=== PATIENT | male | born 1940 | race Caucasian/White ===

== ENCOUNTER 2017-04-25 12:01 | Emergency (ER) | payer MEDICARE ==
[2017-04-25] MEDS ORDERED: NS 0.9% 1000 ML* 1,000 ML IV ONE (12:51)
[2017-04-25 13:26] LABS: Add Diff/Slide Review? Slide Review Added; Comments Flag Yes; Hematocrit 28 % (42-52); Hemoglobin 9.4 g/dl (14.0-18.0); Mean Corpuscular HGB Conc 34 g/dl (31-36); Mean Corpuscular Hemoglobin 31 pg (27-31); Mean Corpuscular Volume 91 fL (80-94); Mean Platelet Volume 8 um3 (7.4-10.4); Red Cell Distribution Width 18 % (10.5-15); White Blood Count 3.1 10^3/ul (3.5-10.8)
--- NOTE | 2017-04-25 13:31 | RAD ---
INDICATION: Short of breath. Lung carcinoma. Chest x-ray March 09, 2016 COMPARISON: Chest x-ray March 09, 2016 TECHNIQUE: PA and lateral dual-energy views were obtained. FINDINGS: Bones/Soft Tissues: There are no acute bony findings. There is prior cervical fusion. Cardiomediastinal: The heart is normal in size. The mediastinal contours are unchanged Lungs: There is hyperinflation with chronic interstitial change.. Pleura: There are no pleural effusions. Other: None IMPRESSION: HYPERINFLATION WITH CHRONIC INTERSTITIAL LUNG DISEASE.
[2017-04-25 13:39] LABS: Albumin 3.2 g/dL (3.2-5.2); BUN/Creatinine Ratio 13.7 (8-20); Calcium 8.6 mg/dL (8.6-10.3); EGFR African American 98.9 (>60); EGFR Non-African American 76.9 (>60); Globulin 3.1 g/dL (2-4); Magnesium 1.9 mg/dL (1.9-2.7); Potassium 3.7 mmol/L (3.5-5.0); Total Bilirubin 1.1 mg/dL (0.2-1.0); Total Protein 6.3 g/dL (6.4-8.9)
[2017-04-25 13:41] LABS: Troponin I 0.01 ng/mL (<0.04)
[2017-04-25 14:07] LABS: TSH (Thyroid Stimulating Horm) 1.67 mcIU/mL (0.34-5.60)
[2017-04-25 15:35] LABS: Urine Bilirubin Negative (Negative); Urine Glucose Negative (Negative); Urine Nitrite Negative (Negative)
[2017-04-25 16:58] VITALS: BP 119/98
--- NOTE | 2017-04-25 17:02 | RAD ---
INDICATION: Lung carcinoma COMPARISON: PET scan February 22, 2017; CT abdomen pelvis November 17, 2015 TECHNIQUE: Noncontrast axial source images was performed from the thoracolumbar junction to the sacrum. Coronal and and sagittal reformatted images were generated. FINDINGS: Vertebrae: There is no fracture or acute focal bony lesion. There is spondylitic change of the lumbar spine which appears similar to earlier CT imaging and includes mild multilevel facet arthropathy, vertebral spurring, and moderate disc space narrowing at L5-S1. There is moderate to severe canal stenosis at L3-L4 previous by combination of bulging disc, facet, and ligamentous overgrowth. There is mild central canal stenosis at L4-L5 related to a similar process. There is a left laminectomy at L5 Alignment: The lumbar vertebrae are normally aligned. Central Canal: There are no significant CT abnormalities of the central canal or foramina. MR imaging is a more sensitive method to evaluate the canal and foramina. Intervertebral disc spaces: The remaining disc spaces are maintained. Soft tissues: There are aortic intimal calcifications with aneurysmal dilatation of infrarenal abdominal aorta. This is only imaged in part of this examination and represents a previously documented finding. There are also left-sided parapelvic cysts. There is trace free fluid in the dependent portion of the pelvis representing a nonspecific finding. Other: None IMPRESSION: NO ACUTE CT FINDINGS. 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 MODERATE TO SEVERE CANAL STENOSIS L3-L4. MILD CANAL STENOSIS L4-L5. LEFT LAMINECTOMY L5.
--- NOTE | 2017-04-25 21:47 | ED ---
Radha Manuel Alfonso, scribed for Sav Caban MD on 04/25/17 at 1232 . Syncope/Near Syncope - HPI Summary HPI Summary: This patient is a 77 year old M presenting to [facility] with a chief complaint of syncope since earlier today. Pt states that when walking down an alley his legs went right from under him. He fell to the floor and got up within 5 minutes. Currently, his legs feel numb and fuzzy. The patient rates his pain 5/10 in severity. Symptoms aggravated nothing and alleviated by spontaneous resolution. Patient reports~CP, dyspnea on exertion, hematemesis (acute on chronic), bilateral LE weakness, lower back pain (chronic), constipation for the past 5 days (5 days for which he is taking medication), throat pain (aggravated by food and drink), dehydration, and blurred vision (intermittent 2-5 minute episodes on exertion for the past few days). Patient denies~feeling bloated and urinary symptoms. - History Of Current Complaint Chief Complaint: EDSyncope Time Seen by Provider: 04/25/17 12:10 Hx Obtained From: Patient Onset/Duration: Sudden Onset, Lasting Minutes - about 5 minutes Timing: Minutes - 5 minutes Activity At Onset: Exertion - Walking Aggravating Factor(s): Nothing Alleviating Factor(s): Spontaneous Resolution Associated Signs And Symptoms: Other - Patient reports CP, dyspnea on exertion, hematemesis (acute on chronic), bilateral LE weakness, lower back pain (chronic) , constipation for the past 5 days (5 days for which he is taking medication), throat pain (aggravated by food and drink), dehydration, and blurred vision ( intermittent 2-5 minute episodes on exertion for the past few days). Patient denies feeling bloated and urinary symptoms. - Allergies/Home Medications Allergies/Adverse Reactions: Allergies Allergy/AdvReac Type Severity Reaction Status Date / Time No Known Allergies Allergy Verified 02/19/17 12:51 PMH/Surg Hx/FS Hx/Imm Hx Endocrine/Hematology History: Reports: Hx Anemia - chemo-induced Denies: Hx Diabetes, Hx Systemic Lupus Erythematosus Cardiovascular History: Reports: Hx Angina, Hx Coronary Artery Disease, Hx Hypercholesterolemia, Hx Hypertension - ON MEDS, Hx Myocardial Infarction Denies: Hx Congestive Heart Failure, Hx Valvular Heart Disease Comment Only: Other Cardiovascular Problems/Disorders - - Respiratory History: Reports: Hx Asthma, Hx Chronic Obstructive Pulmonary Disease (COPD), Hx Lung Cancer - -chemo, last CT scan was clear, Other Respiratory Problems/Disorders - LUNG CA GI History: Reports: Hx Gastroesophageal Reflux Disease Comment Only: Other GI Disorders - HX PROSTATE CA 1998, LUNG CA 2013 WITH RADIATIONS [place] History: Reports: Other Problems/Disorders - hx prostate ca Denies: Hx Dialysis, Hx Renal Disease - DYSURIA, HEMATURIA, PROSTATE CA Musculoskeletal History: Reports: Hx Back Problems - disc removal, Other Musculoskeletal History - R knee surgery Denies: Hx Rheumatoid Arthritis Sensory History: Reports: Hx Contacts or Glasses Opthamlomology History: Reports: Hx Contacts or Glasses - Cancer History Cancer Type, Location and Year: lung ca dx 2010 radiation and chemo last dose 2010, in remission, PROSTATE CA Hx Chemotherapy: No - Surgical History Surgery Procedure, Year, and Place: back 1979,prostate removed r/t ca 1994, cardiac stent 1999,knee right,oliver, appendectomy, bilat cataract, Infectious Disease History: Denies: Traveled Outside the [place] in Last 30 Days - Family History Known Family History: Positive: Cardiac Disease - Social History Alcohol Use: None Substance Use Type: Reports: None Smoking Status (MU): Former Smoker Review of Systems Positive: Other - POSTIVE: Dehydration Positive: Blurred Vision Positive: Other - POSITIVE: throat pain per food and drink Positive: Chest Pain Positive: Shortness Of Breath - dyspnea on exertion, Cough - Hematemesis (acute on chronic) Positive: Other - POSITIVE: constipation; NEGATIVE: feeling bloated Positive: other - NEGATIVE: urinary symptoms Positive: Other - Lower back pain (chronic) Positive: Weakness - Bilateral LE weakness All Other Systems Reviewed And Are Negative: Yes Physical Exam Triage Information Reviewed: Yes Vital Signs On Initial Exam: Initial Vitals Temp Pulse Resp BP Pulse Ox 98.2 F 88 24 124/54 95 04/25/17 12:02 04/25/17 12:02 04/25/17 12:02 04/25/17 12:02 04/25/17 12:02 Vital Signs Reviewed: Yes Appearance: Positive: Well-Appearing, No Pain Distress Skin: Positive: Warm, Skin Color Reflects Adequate Perfusion, Dry Head/Face: Positive: Normal Head/Face Inspection Eyes: Positive: Normal ENT: Positive: Other - Dry oral mucosa Neck: Positive: Supple, Nontender Respiratory/Lung Sounds: Positive: Clear to Auscultation, Breath Sounds Present Cardiovascular: Positive: Other - Distant heart sounds Abdomen Description: Positive: Soft, Other: - LLQ Tenderness Musculoskeletal: Positive: Normal Neurological: Positive: Normal, Sensory/Motor Intact, Alert, Oriented to Person Place, Time, CN Intact II-III Psychiatric: Positive: Affect/Mood Appropriate Diagnostics - Vital Signs Vital Signs Temp Pulse Resp BP Pulse Ox 04/25/17 12:02 98.2 F 88 24 124/54 95 - Laboratory Lab Results: Lab Results 04/25/17 04/25/17 04/25/17 Range/Units 12:35 12:35 12:35 WBC 3.1 L (3.5-10.8) 10^3/ul RBC 3.10 L (4.0-5.4) 10^6/ul Hgb 9.4 L (14.0-18.0) g/dl Hct 28 L (42-52) % MCV 91 (80-94) fL MCH 31 (27-31) pg MCHC 34 (31-36) g/dl RDW 18 H (10.5-15) % Plt Count 193 (150-450) 10^3/ul MPV 8 (7.4-10.4) um3 Neut % (Auto) 76.8 (38-83) % Lymph % (Auto) 13.5 L (25-47) % Shannon % (Auto) 8.8 (1-9) % Eos % (Auto) 0.5 (0-6) % Baso % (Auto) 0.4 (0-2) % Absolute Neuts (auto) 2.4 (1.5-7.7) 10^3/ul Absolute Lymphs (auto) 0.4 L (1.0-4.8) 10^3/ul Absolute Monos (auto) 0.3 (0-0.8) 10^3/ul Absolute Eos (auto) 0 (0-0.6) 10^3/ul Absolute Basos (auto) 0 (0-0.2) 10^3/ul Absolute Nucleated RBC 0.01 10^3/ul Nucleated RBC % 0.4 Sodium 135 (133-145) mmol/L Potassium 3.7 (3.5-5.0) mmol/L Chloride 102 (101-111) mmol/L Carbon Dioxide 25 (22-32) mmol/L Anion Gap 8 (2-11) mmol/L BUN 13 (6-24) mg/dL Creatinine 0.95 (0.67-1.17) mg/dL Est GFR ( Amer) 98.9 (>60) Est GFR (Non-Af Amer) 76.9 (>60) BUN/Creatinine Ratio 13.7 (8-20) Glucose 115 H (70-100) mg/dL Lactic Acid 1.5 (0.5-2.0) mmol/L Calcium 8.6 (8.6-10.3) mg/dL Magnesium 1.9 (1.9-2.7) mg/dL Total Bilirubin 1.10 H (0.2-1.0) mg/dL AST 14 (13-39) U/L ALT 14 (7-52) U/L Alkaline Phosphatase 50 (34-104) U/L Total Creatine Kinase 30 (10-223) U/L Troponin I 0.01 (<0.04) ng/mL Total Protein 6.3 L (6.4-8.9) g/dL Albumin 3.2 (3.2-5.2) g/dL Globulin 3.1 (2-4) g/dL Albumin/Globulin Ratio 1.0 (1-3) TSH 1.67 (0.34-5.60) mcIU/mL Urine Color Urine Appearance Urine pH (5-9) Ur Specific [place] (1.010-1.030) Urine Protein (Negative) Urine Ketones (Negative) Urine Blood (Negative) Urine Nitrate (Negative) Urine Bilirubin (Negative) Urine Urobilinogen (Negative) Ur Leukocyte Esterase (Negative) Urine Glucose (Negative) 04/25/17 Range/Units 15:23 WBC (3.5-10.8) 10^3/ul RBC (4.0-5.4) 10^6/ul Hgb (14.0-18.0) g/dl Hct (42-52) % MCV (80-94) fL MCH (27-31) pg MCHC (31-36) g/dl RDW (10.5-15) % Plt Count (150-450) 10^3/ul MPV (7.4-10.4) um3 Neut % (Auto) (38-83) % Lymph % (Auto) (25-47) % Shannon % (Auto) (1-9) % Eos % (Auto) (0-6) % Baso % (Auto) (0-2) % Absolute Neuts (auto) (1.5-7.7) 10^3/ul Absolute Lymphs (auto) (1.0-4.8) 10^3/ul Absolute Monos (auto) (0-0.8) 10^3/ul Absolute Eos (auto) (0-0.6) 10^3/ul Absolute Basos (auto) (0-0.2) 10^3/ul Absolute Nucleated RBC 10^3/ul Nucleated RBC % Sodium (133-145) mmol/L Potassium (3.5-5.0) mmol/L Chloride (101-111) mmol/L Carbon Dioxide (22-32) mmol/L Anion Gap (2-11) mmol/L BUN (6-24) mg/dL Creatinine (0.67-1.17) mg/dL Est GFR ( Amer) (>60) Est GFR (Non-Af Amer) (>60) BUN/Creatinine Ratio (8-20) Glucose (70-100) mg/dL Lactic Acid (0.5-2.0) mmol/L Calcium (8.6-10.3) mg/dL Magnesium (1.9-2.7) mg/dL Total Bilirubin (0.2-1.0) mg/dL AST (13-39) U/L ALT (7-52) U/L Alkaline Phosphatase (34-104) U/L Total Creatine Kinase (10-223) U/L Troponin I (<0.04) ng/mL Total Protein (6.4-8.9) g/dL Albumin (3.2-5.2) g/dL Globulin (2-4) g/dL Albumin/Globulin Ratio (1-3) TSH (0.34-5.60) mcIU/mL Urine Color Yellow Urine Appearance Clear Urine pH 6.0 (5-9) Ur Specific [place] 1.014 (1.010-1.030) Urine Protein Negative (Negative) Urine Ketones 1+ H (Negative) Urine Blood Negative (Negative) Urine Nitrate Negative (Negative) Urine Bilirubin Negative (Negative) Urine Urobilinogen Negative (Negative) Ur Leukocyte Esterase Negative (Negative) Urine Glucose Negative (Negative) Result Diagrams: 08/20/17 12:35 04/25/17 12:35 Lab Statement: Any lab studies that have been ordered have been reviewed, and results considered in the medical decision making process. - Radiology CXR Radiology Interpretation Completed By: Radiologist - HYPERINFLATION WITH CHRONIC INTERSTITIAL LUNG DISEASE. - CT L-Spine CT Interpretation Completed By: Radiologist - NO ACUTE CT FINDINGS. 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 MODERATE TO SEVERE CANAL STENOSIS L3-L4. MILD CANAL STENOSIS L4-L5. LEFT LAMINECTOMY L5. - EKG 1323 Cardiac Rate: Bradycardia - BPM 56 EKG Rhythm: Sinus Bradycardia EKG Interpretation: NAD Course/Dx Course Of Treatment: Mr. Alvares had an episode while walking of having his bilateral legs give out. He initially had some back pain after he fell but it went away. Hs right leg has given out before but never the left. He has been occasionally lightheaded which he attributes to being unable to eat secondary to severe chest pain after swallowing. His W/U was negative here and he was able to ambulate. - Diagnoses Provider Diagnoses: Syncope and collapse - Physician Notifications Discussed Care of Patient With: Zeyad Hennessy Time Discussed With Above Provider: 16:31 Instructed by Provider To: Other - Consult Dr. Ulrich (Oncologist) about the pt. Discharge - Discharge Plan Condition: Stable Disposition: HOME Patient Education Materials: Dehydration (ED) Referrals: Reynaldo Mejias MD [Primary Care Provider] - Yogi Hale MD [Medical Doctor] - 3 Days The documentation as recorded by the Radha oakes Alfonso accurately reflects the service I personally performed and the decisions made by , Sav Caban MD.
== END 2017-04-25 18:39 | disposition home or self-care (01) ==
LOC: ED 12:01
DX: R55 Syncope and collapse (principal); M54.5 Low back pain; E86.0 Dehydration; Z87.891 Personal history of nicotine dependence
CPT/HCPCS: 36415; 71020; 72131; 80053; 81003; 82550; 83605; 83735; 84443; 84484; 85025; 93005; 99283

== ENCOUNTER 2017-12-02 18:14 | Inpatient (IN) | payer MEDICARE ==
[2017-12-02] MEDS ORDERED: Aspirin TAB* 325 MG PO ONE (18:55)
[2017-12-02] MEDS ORDERED: Nitroglycerin 2% OINT* 1 GM PAK TOPICAL ONE (18:55)
[2017-12-02 18:56] LABS: ABS Basophils 0 10^3/ul (0-0.2); ABS Eosinophils 0.1 10^3/ul (0-0.6); ABS Monocytes 0.7 10^3/ul (0-0.8); ABS Neutrophils 4.9 10^3/ul (1.5-7.7); ABS Nucleated RBC 0 10^3/ul; Hematocrit 40 % (42-52); Hemoglobin 13.8 g/dl (14.0-18.0); Lymphocyte % 14.6 % (25-47); Mean Corpuscular HGB Conc 34 g/dl (31-36); Mean Corpuscular Hemoglobin 30 pg (27-31); Mean Corpuscular Volume 89 fL (80-94); Mean Platelet Volume 7.2 um3 (7.4-10.4); Nucleated Red Blood Cells % 0; Platelet Count 177 10^3/ul (150-450); Red Blood Count 4.55 10^6/ul (4.0-5.4); Red Cell Distribution Width 15 % (10.5-15); White Blood Count 6.7 10^3/ul (3.5-10.8)
[2017-12-02] MEDS ORDERED: Morphine INJ* 4 MG/ML 1 ML SYRINGE (NEW SYRINGE VERSION) IV ONE (18:56)
--- NOTE | 2017-12-02 19:06 | RAD ---
INDICATION: Chest pain COMPARISON: Chest x-ray dated April 25, 2017 TECHNIQUE: Single AP portable view of the chest was obtained. FINDINGS: Image quality is compromised due to the relative inferiority of a portable chest x-ray. The heart and mediastinum exhibit normal size and contour. Similar to the prior chest x-ray there is patchy density at the dependent lateral right lung. The lungs are otherwise grossly clear. There is no evidence of a large pleural effusion. Visualized bones are normal for the patient's age. IMPRESSION: Stable patchy density at the lateral right lung base, unchanged since the 2016 chest x-ray, could represent atelectasis, scarring or early interstitial lung disease. There are no acute findings.
[2017-12-02 19:14] LABS: EGFR Non-African American 70.8 (>60)
[2017-12-02] MEDS ORDERED: CMCS: Melatonin (NF) 3 MG TAB PO PRN (19:41)
[2017-12-02] MEDS ORDERED: hydrALAZINE IV* 20 MG/ML VIAL IV PRN (19:41)
[2017-12-02] MEDS ORDERED: Acetaminophen TAB* 325 MG PO PRN (19:41)
[2017-12-02] MEDS ORDERED: Albuterol 2.5 MG/3 ML NEB.SOL* (0.083%) INH PRN (19:41)
[2017-12-02] MEDS ORDERED: Ondansetron INJ* 2 MG/ML VIAL IV PRN (19:41)
[2017-12-02] MEDS ORDERED: Metoprolol Tartrate TAB* 25 MG PO ONE (19:42)
--- NOTE | 2017-12-02 20:45 | ED ---
Laurie Manuel Julia, scribed for Julia Starr MD on 12/02/17 at 1843 . HPI Chest Pain - HPI Summary HPI Summary: This patient is a 77 year old M presenting to [facility] accompanied by his son with a chief complaint of chest pain all week that worsened today with SOB when shoveling the driveway that resolved when sitting down after ten minutes. Chest pain, nausea and diaphoresis returned suddenly when he walked back outside. The patient rates the pain 8/10 in severity. Patient reports headache at baseline, sinus infection for the past few weeks and intermittent neck pain at baseline. Patient denies urinary or bowel symptoms, new abdominal pain, bruising, rashes , ear ache, sore throat, fever, and anxiety or depression. Pt took a baby ASA and one Nitro today. Pt had his last stent placed in 1999. - History of Current Complaint Hx Obtained From: Patient Onset/Duration: Started Hours Ago Timing: Lasting Minutes Pain Intensity: 8 Pain Scale Used: 0-10 Numeric Aggravating Factor(s): Exertion Alleviating Factor(s): Rest Associated Signs and Symptoms: Positive: Chest Pain, Headaches, Shortness of Breath, Diaphoresis, Nausea, Sinus Discomfrot. Negative: Fever - Additional Pertinent History Primary Care Physician: [id number] - Allergy/Home Medications Allergies/Adverse Reactions: Allergies Allergy/AdvReac Type Severity Reaction Status Date / Time No Known Allergies Allergy Verified 11/19/17 12:36 Home Medications: Home Medications Dicyclomine CAP* [Bentyl CAP*] 20 mg PO BID 12/02/17 [History Confirmed 12/02/17 ] hydrOXYzine HCL TAB* [Atarax 10 MG TAB*] 10 mg PO DAILY 12/02/17 [History Confirmed 12/02/17] PMH/Surg Hx/FS Hx/Imm Hx Endocrine/Hematology History: Reports: Hx Anemia - chemo-induced Denies: Hx Diabetes, Hx Systemic Lupus Erythematosus Cardiovascular History: Reports: Hx Angina, Hx Coronary Artery Disease, Hx Hypercholesterolemia, Hx Hypertension - ON MEDS, Hx Myocardial Infarction Denies: Hx Congestive Heart Failure, Hx Pacemaker/ICD, Hx Valvular Heart Disease Comment Only: Other Cardiovascular Problems/Disorders - - Respiratory History: Reports: Hx Asthma, Hx Chronic Obstructive Pulmonary Disease (COPD), Hx Lung Cancer - -chemo, last CT scan was clear, Other Respiratory Problems/Disorders - LUNG CA GI History: Reports: Hx Gastroesophageal Reflux Disease Comment Only: Other GI Disorders - HX PROSTATE CA 1998, LUNG CA 2013 WITH RADIATIONS [place] History: Reports: Other Problems/Disorders - hx prostate ca Denies: Hx Dialysis, Hx Renal Disease Musculoskeletal History: Reports: Hx Back Problems - disc removal, Other Musculoskeletal History - R knee surgery Denies: Hx Rheumatoid Arthritis Sensory History: Reports: Hx Contacts or Glasses Denies: Hx Hearing Aid Opthamlomology History: Reports: Hx Contacts or Glasses Psychiatric History: Denies: Hx Panic Disorder - Cancer History Cancer Type, Location and Year: lung ca dx 2010 radiation and chemo last dose 2010, second round in 2017 ending in april, prostate CA Hx Chemotherapy: No - Surgical History Surgery Procedure, Year, and Place: back 1979,prostate removed r/t ca 1994, cardiac stent 1999,knee right,oliver, appendectomy, bilat cataract, Infectious Disease History: No Infectious Disease History: Denies: Traveled Outside the [place] in Last 30 Days - Family History Known Family History: Positive: Cardiac Disease - Social History Alcohol Use: None Substance Use Type: Reports: None Smoking Status (MU): Former Smoker Review of Systems Negative: Fever Negative: Blurred Vision Negative: Sore Throat, Ear Ache Positive: Chest Pain Positive: Shortness Of Breath Gastrointestinal: Negative - bowel symptoms Positive: Nausea. Negative: Abdominal Pain Positive: no symptoms reported Positive: Myalgia - neck, at baseline Negative: Rash Positive: Headache - at baseline Negative: Anxious, Depressed All Other Systems Reviewed And Are Negative: No Physical Exam - Summary Physical Exam Summary: Appearance: Alert, conversive, nontoxic appearing Skin: Warm, dry, no mottling, no rashes, no contusions HEENT: EOMI, PERRL, moist mucous membranes Neck: No masses on the neck, supple Respiratory: Clear to auscultation, breath sounds present, no rales, no rhonchi , no wheezes Cardiovascular: RRR, pulses are symmetrical in both lower and upper extremities Abdomen: Soft, non-tender Bowel Sounds: Present Musculoskeletal: No CVA tenderness, no obvious deformity, moving all extremities in a grossly normal manner Neurological: A&Ox3, CN II-XII Intact, moving all extremities symmetrically Psychiatric: Normal affect and mood Triage Information Reviewed: Yes Vital Signs On Initial Exam: Initial Vitals Temp Pulse Resp BP Pulse Ox 99.3 F 75 16 144/66 96 12/02/17 18:31 18 18:31 18 18:31 12/02/17 18:31 12/02/17 18:31 Vital Signs Reviewed: Yes Diagnostics - Vital Signs Vital Signs Temp Pulse Resp BP Pulse Ox 12/02/17 18:31 99.3 F 75 16 144/66 96 - Laboratory Lab Results: Lab Results 12/02/17 12/02/17 12/02/17 Range/Units 18:45 18:45 18:45 WBC 6.7 (3.5-10.8) 10^3/ul RBC 4.55 (4.0-5.4) 10^6/ul Hgb 13.8 L (14.0-18.0) g/dl Hct 40 L (42-52) % MCV 89 (80-94) fL MCH 30 (27-31) pg MCHC 34 (31-36) g/dl RDW 15 (10.5-15) % Plt Count 177 (150-450) 10^3/ul MPV 7.2 L (7.4-10.4) um3 Neut % (Auto) 73.4 (38-83) % Lymph % (Auto) 14.6 L (25-47) % [place] % (Auto) 10.5 H (0-7) % Eos % (Auto) 1.0 (0-6) % Baso % (Auto) 0.5 (0-2) % Absolute Neuts (auto) 4.9 (1.5-7.7) 10^3/ul Absolute Lymphs (auto) 1.0 (1.0-4.8) 10^3/ul Absolute Monos (auto) 0.7 (0-0.8) 10^3/ul Absolute Eos (auto) 0.1 (0-0.6) 10^3/ul Absolute Basos (auto) 0 (0-0.2) 10^3/ul Absolute Nucleated RBC 0 10^3/ul Nucleated RBC % 0 Sodium 141 (139-145) mmol/L Potassium 4.0 (3.5-5.0) mmol/L Chloride 103 (101-111) mmol/L Carbon Dioxide 29 (22-32) mmol/L Anion Gap 9 (2-11) mmol/L BUN 20 (6-24) mg/dL Creatinine 1.02 (0.67-1.17) mg/dL Est GFR ( Amer) 91.1 (>60) Est GFR (Non-Af Amer) 70.8 (>60) BUN/Creatinine Ratio 19.6 (8-20) Glucose 122 H (70-100) mg/dL Calcium 9.4 (8.6-10.3) mg/dL Magnesium 2.0 (1.9-2.7) mg/dL Total Bilirubin 0.30 (0.2-1.0) mg/dL AST 13 (13-39) U/L ALT 11 (7-52) U/L Alkaline Phosphatase 63 (34-104) U/L Troponin I 0.06 H* (<0.04) ng/mL B-Natriuretic Peptide 59 ( - 100) pg/mL Total Protein 7.1 (6.4-8.9) g/dL Albumin 3.9 (3.2-5.2) g/dL Globulin 3.2 (2-4) g/dL Albumin/Globulin Ratio 1.2 (1-3) Lipase 58 (11.0-82.0) U/L TSH 3.67 (0.34-5.60) mcIU/mL Result Diagrams: 12/02/17 18:45 12/02/17 18:45 Lab Statement: Any lab studies that have been ordered have been reviewed, and results considered in the medical decision making process. - Radiology CXR Radiology Interpretation Completed By: Radiologist - Stable patchy density at the lateral right lung base, unchanged since the 2016 chest x-ray, could represent atelectasis, scarring or early interstitial lung disease. There are no acute findings. ED Physician has reviewed this report. - EKG 1818 Cardiac Rate: NL - at 74 BPM EKG Rhythm: Sinus Rhythm EKG Interpretation: nml QRS, nml QTc, ischemic ST changes V1-V6 and one in avL Re-Evaluation - Re-Evaluation 1 Re-Evaluation Time: 19:40 Comment: Pt informed of admission. Chest Pain Course/Dx - Course Course Of Treatment: Pt presents with chest pain all week that worsened today with SOB when shoveling the driveway that resolved when sitting down after ten minutes. Chest pain, nausea and diaphoresis returned suddenly when he walked back outside. A CXR has no acute findings. An EKG reveals ischemic ST waves in V1-V6 and one in avL. Pt is given ASA, Nitro, Morphine, and Lopressor. Bloodwork is WNL except for a troponin of 0.06. Dr. Romero agrees to admit. - Diagnoses Provider Diagnoses: Chest pain, Abnormal EKG - Provider Notifications Discussed Care Of Patient With: Rl Romero - hospitalist Time Discussed With Above Provider: 19:30 Instructed by Provider To: Admit As Inpatient Discharge - Sign-Out/Discharge Documenting (check all that apply): Discharge - Discharge Plan Condition: Stable Disposition: ADMITTED TO [facility] - Billing Disposition and Condition Condition: STABLE [place] [place] The documentation as recorded by the Laurie oakes Julia accurately reflects the service I personally performed and the decisions made by Ro tinoco Norma, MD.
--- NOTE | 2017-12-02 21:15 | HP ---
H&P (Free Text) History and Physical: PCP: Mitchell Mejias MD Cardiology: [facility] Oncology: Gordo Hale MD Radiation Oncology: Mitchell Fischer MD Date/Time: 12/02/2017 193 CC: chest pain HPI: Mr Alvares is a 77YO male HX CAD/stent x2 in 1999, HTN, HLD, lung CA x2, prostate CA who reports intermittent sharp chest pain for the past week brought on by exertion and relieved with rest. Today while shoveling some snow he again developed non-radiating chest pain rated at 8/10 which was different than previous as he also developed some SOB and nausea with it. His symptoms resolved after sitting down for ~10minutes. However, they returned rapidly when he walked back outside prompting him to present for evaluation. He states this reminds him of the pain and symptoms he had resulting in the 2 cardiac stents being placed at [place] in 1999. He currently is pain and symptom free. PMedHx CAD/stent x2 HTN HLD lung CA prostate CA emphysema BPH GERD Ambulatory Orders Aspirin EC Low Dose* [Ecotrin EC Low Dose 81 MG*] 81 mg PO DAILY 11/28/12 Esomeprazole(NF) [Nexium(NF)] 40 mg PO QAM 11/28/12 Hydrochlorothiazide TAB* [Hydrodiuril TAB*] 25 mg PO DAILY 11/28/12 Metoprolol Succinate XL TAB* [Toprol XL TAB*] 50 mg PO DAILY 11/28/12 Oxybutynin TAB* [Ditropan TAB*] 5 mg PO DAILY 11/28/12 Simvastatin (NF) [Zocor (NF)] 40 mg PO BEDTIME 11/28/12 Losartan TAB* [Cozaar TAB*] 25 mg PO DAILY 11/11/15 Dicyclomine CAP* [Bentyl CAP*] 20 mg PO BID 12/02/17 hydrOXYzine HCL TAB* [Atarax 10 MG TAB*] 10 mg PO DAILY 12/02/17 Allergies No Known Allergies Allergy (Verified 11/19/17 12:36) PSurgHx cardiac stent x2 in 1999 at [place] cholecystectomy appendectomy prostatectomy spine surgery knee surgery SocHx: former smoker, no alcohol or recreational drugs; 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; 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 FamHx: positive for breast CA in his mother & prostate CA in her father ROS: as above, otherwise reviewed and all were negative vitals: Vital Signs Temp -17.7 C 12/02/17 20:26 Pulse 0 12/02/17 20:26 Resp 0 12/02/17 20:26 BP 0/0 12/02/17 20:26 Pulse Ox 0 12/02/17 20:26 Intake & Output 12/01/17 12/02/17 12/02/17 23:59 11:59 23:59 Weight 83.007 kg Constitutional: NAD, normally developed, overweight white female HEENM: atraumatic; sclera/conjunctiva: anicteric/clear; hearing: clinically intact; oropharynx: clear, mucosa moist Neck: soft tissue: non-tender; thyroid: normal Pulmonary: clear to auscultation bilaterally, good aeration, no accessory muscle use CV: RR/RR, normal S1S2, no carotid bruit, no jugular venous distention, 2+ B DP/ PT, no edema Abdominal: soft, non-distended, non-tender, no rebound/guarding/rigidity, normoactive bowel sounds, no hepatosplenomegaly or masses, no costovertebral angle tenderness Musculoskeletal: general: grossly intact, non-tender Integumental: normal appearance and texture of exposed skin Psychiatric orientation: AA&O to PPS affect: calm mood: pleasant eye contact: good content: reliable responses: timely insight: fair to good Testing: Lab Results 12/02/17 12/02/17 12/02/17 Range/Units 18:45 18:45 18:45 WBC 6.7 (3.5-10.8) 10^3/ul RBC 4.55 (4.0-5.4) 10^6/ul Hgb 13.8 L (14.0-18.0) g/dl Hct 40 L (42-52) % MCV 89 (80-94) fL MCH 30 (27-31) pg MCHC 34 (31-36) g/dl RDW 15 (10.5-15) % Plt Count 177 (150-450) 10^3/ul MPV 7.2 L (7.4-10.4) um3 Neut % (Auto) 73.4 (38-83) % Lymph % (Auto) 14.6 L (25-47) % Carbon % (Auto) 10.5 H (0-7) % Eos % (Auto) 1.0 (0-6) % Baso % (Auto) 0.5 (0-2) % Absolute Neuts (auto) 4.9 (1.5-7.7) 10^3/ul Absolute Lymphs (auto) 1.0 (1.0-4.8) 10^3/ul Absolute Monos (auto) 0.7 (0-0.8) 10^3/ul Absolute Eos (auto) 0.1 (0-0.6) 10^3/ul Absolute Basos (auto) 0 (0-0.2) 10^3/ul Absolute Nucleated RBC 0 10^3/ul Nucleated RBC % 0 Sodium 141 (139-145) mmol/L Potassium 4.0 (3.5-5.0) mmol/L Chloride 103 (101-111) mmol/L Carbon Dioxide 29 (22-32) mmol/L Anion Gap 9 (2-11) mmol/L BUN 20 (6-24) mg/dL Creatinine 1.02 (0.67-1.17) mg/dL Est GFR ( Amer) 91.1 (>60) Est GFR (Non-Af Amer) 70.8 (>60) BUN/Creatinine Ratio 19.6 (8-20) Glucose 122 H (70-100) mg/dL Calcium 9.4 (8.6-10.3) mg/dL Magnesium 2.0 (1.9-2.7) mg/dL Total Bilirubin 0.30 (0.2-1.0) mg/dL AST 13 (13-39) U/L ALT 11 (7-52) U/L Alkaline Phosphatase 63 (34-104) U/L Troponin I 0.06 H* (<0.04) ng/mL B-Natriuretic Peptide 59 ( - 100) pg/mL Total Protein 7.1 (6.4-8.9) g/dL Albumin 3.9 (3.2-5.2) g/dL Globulin 3.2 (2-4) g/dL Albumin/Globulin Ratio 1.2 (1-3) Lipase 58 (11.0-82.0) U/L TSH 3.67 (0.34-5.60) mcIU/mL ECG, personally reviewed: NSR rate 74, inverted T-waves V1-5, ST depression V3-6 CXR, personally reviewed: IMPRESSION: Stable patchy density at the lateral right lung base, unchanged since the 2016 chest x-ray, could represent atelectasis, scarring or early interstitial lung disease. There are no acute findings. Impression: 77M HX CAD/stent x2, lung CA, prostate CA, emphysema, HTN, HLD who present with chest pain for r/o ACS DIAGNOSIS & PLAN Primary chest pain r/o ACS : CAD/stent x2 : telemetry : trend troponin : nuclear NST in AM : supplemental oxygen : aspirin given in ED : additional 12.5mg PO metoprolol given in ED : consider cardiology consult in AM pending above : supportive care Secondary HTN : hold HCTZ & metoprolol for stress testing : continue losartan HLD : continue simvastatin lung CA : continue outpatient surveillance prostate CA : continue outpatient surveillance emphysema : albuterol neb PRN BPH : continue oxybutynin GERD : continue esomeprazole Admission Rational: observation for r/o ACS DVTp: heparin SQ Code Status: full HCP: son
[2017-12-02] MEDS: Docusate CAP* 100 MG PO SCH (21:43)
[2017-12-03] MEDS: Losartan TAB* 25 MG PO SCH (08:00)
[2017-12-03] MEDS: Omeprazole CAP* 20 MG PO SCH (08:00)
[2017-12-03] MEDS: Aspirin EC TAB* 81 MG TAB.EC PO SCH (08:00)
[2017-12-03] MEDS: Oxybutynin TAB* 5 MG PO SCH (08:00)
[2017-12-03] MEDS: Docusate CAP* 100 MG PO SCH ×2 (08:00→21:10)
[2017-12-03] MEDS ORDERED: Regadenoson* 0.4 MG/5 ML SYRINGE ONE (10:13)
[2017-12-03] MEDS ORDERED: Aminophylline IV* 25 MG/ML 10 ML VIAL ONE (10:13)
--- NOTE | 2017-12-03 11:46 | RAD ---
Edited for charges. INDICATION: Chest pain, shortness of breath. Previous angioplasty. Abnormal EKG. COMPARISON: November 01, 2014 TECHNIQUE: 10.500 mCi of Tc-99m Myoview were administered IV. SPECT images of the heart were obtained. Later on the same day. Under the direction of Dr. Carroll, the patient was given an IV injection of a pharmacologic stress agent. Subsequently, the patient was given an IV injection of 25.800 mCi Tc-99m Myoview. SPECT images of the heart were obtained and a gated wall motion study was performed. No CT for attenuation correction due to limitation in range of motion of the arms. FINDINGS: Gated wall motion images were obtained at stress and demonstrate hypokinesia at the septum. The calculated left ventricular ejection fraction is 62 % at stress. Estimated LEFT ventricular end diastolic volume is 78 mL. TID 1.27. There is partial decreased perfusion at the septum, anteroseptal junction, and apex at stress with reversal at rest. Grossly fixed decreased perfusion at the inferior wall which may reflect diaphragmatic attenuation. IMPRESSION: 1. Hypokinesia at the septum and anteroseptal junction. The LEFT ventricular ejection fraction remains within normal range estimated at 62%. Normal range estimated end-diastolic volume. 2. Scintigraphic evidence for stress-induced ischemia at the septum and anteroseptal junction as well as the apex new compared with the 2015 exam. 3. Grossly fixed perfusion defect at the inferior wall may represent diaphragmatic attenuation or infarct. This finding is unchanged compared with the 2015 exam. 4. Elevated transient ischemic dilatation suggesting potential extensive subendocardial ischemia. ASSESSMENT: Intermediate risk based on nuclear portion. Based on imaging criteria from ACC/AHA 2002 Guideline Update for the Management of Patients With Chronic Stable Angina Table 23. Noninvasive Risk Stratification. MTDD
[2017-12-03] MEDS ORDERED: NS 0.9% 1000 ML* 1,000 ML IV SCH ×2 (12:30→15:45)
[2017-12-03] MEDS ORDERED: fentaNYL* 50 MCG/ML 2 ML VIAL (100 MCG VIAL) ONE (13:19)
[2017-12-03] MEDS ORDERED: Heparin(*) 1000 UNIT/ML 10 ML VIAL CATH LAB IV ONE ×2 (13:19→14:32)
[2017-12-03] MEDS ORDERED: Iohexol 350 (CONTRAST) 200 ML MDV IV ONE (13:20)
[2017-12-03] MEDS ORDERED: Heparin 2 UNITS/ML IVPREMIX* 2,000 ML IV ONE (13:20)
[2017-12-03] MEDS ORDERED: Lidocaine 1% INJ* 10 MG/ML 30 ML SDV ONE (13:20)
[2017-12-03] MEDS ORDERED: nitroGLYCERIN DRIP* 25,000 MCG/250 ML BTL ONE (13:20)
[2017-12-03] MEDS ORDERED: VERAPAMIL 2.5 MG/ML 2 ML VIAL ** 5 mg/2 ml ONE (13:21)
[2017-12-03] MEDS ORDERED: Midazolam* 1 MG/ML 10 ML VIAL (10 MG) ONE (13:21)
[2017-12-03] MEDS ORDERED: Ticagrelor* 90 MG TAB PO ONE ×2 (14:32→14:33)
[2017-12-03] MEDS ORDERED: Nitroglycerin TAB 0.4 MG* 0.4 MG TAB SL PRN (15:35)
--- NOTE | 2017-12-03 15:48 | PN ---
Subjective Date of Service: 12/03/17 Interval History: Patient had resolution of CP overnight except for one self-resolved episodes which did not have associated symptoms and patient states felt like gas. Patient underwent stress testing and had intermediate risk study. No CP with stress test. No other complaints including F/C, N/V, abdominal pain, diarrhea, SOB, or other pain. Patient states that this episode felt like his previous CT and that he had progressive decrease in exercise tolerance over the past several months. Underwent catheterization and had restenting of LAD Stenosis. Family History: Unchanged from Admission Social History: Unchanged from Admission Past Medical History: Unchanged from Admission Objective Active Medications: Acetaminophen (Tylenol Tab*) 650 mg PO Q6H PRN PRN Reason: FEVER/PAIN Last Admin: 12/03/17 08:06 Dose: 650 mg Albuterol (Ventolin 2.5 Mg/3 Ml Neb.Rhonda*) 2.5 mg INH Q2H PRN PRN Reason: SOB/WHEEZING Aspirin (Aspirin Ec Low Dose*) 81 mg PO DAILY [facility] Last Admin: 12/03/17 08:00 Dose: 81 mg Atorvastatin Calcium (Lipitor*) 20 mg PO BEDTIME [facility] Docusate Sodium (Colace Cap*) 200 mg PO BID [facility] Last Admin: 12/03/17 08:00 Dose: 200 mg Hydralazine HCl (Apresoline Iv*) 10 mg IV Q4H PRN PRN Reason: Systolic >170 Sodium Chloride (Ns 0.9% 1000 Ml*) 1,000 mls @ 100 mls/hr IV .per rate [facility] Losartan Potassium (Cozaar Tab*) 25 mg PO DAILY [facility] Last Admin: 12/03/17 08:00 Dose: 25 mg Melatonin (Melatonin (Nf)) 3 mg PO BEDTIME PRN; Protocol PRN Reason: Sleep Omeprazole (Prilosec Cap*) 20 mg PO DAILY@0730 [facility] PRN Reason: Protocol Last Admin: 12/03/17 08:00 Dose: 20 mg Ondansetron HCl (Zofran Inj*) 4 mg IV Q6H PRN PRN Reason: NAUSEA Oxybutynin Chloride (Ditropan Tab*) 5 mg PO DAILY [facility] Last Admin: 12/03/17 08:00 Dose: 5 mg Vital Signs - 8 hr 12/03/17 11:48 Temperature 98.0 F Pulse Rate 55 Respiratory 16 Rate Blood Pressure 150/62 (mmHg) O2 Sat by Pulse 98 Oximetry Oxygen Devices in Use Now: None Appearance: Patient is a 77yo male who appears stated age and is sitting in the bed in NAD. Eyes: No Scleral Icterus, PERRLA Ears/Nose/Mouth/Throat: NL Teeth, Lips, Gums, Clear Oropharnyx, Mucous Membranes Moist Neck: NL Appearance and Movements; NL JVP, Trachea Midline Respiratory: Symmetrical Chest Expansion and Respiratory Effort, - - Sonorous rhonchi in Lower [place]ob[place] which resolved with deep breathing. Cardiovascular: NL Sounds; No Murmurs; No JVD, RRR, No Edema Abdominal: NL Sounds; No Tenderness; No Distention, No Hepatosplenomegaly Lymphatic: No Cervical Adenopathy Extremities: No Edema, No Clubbing, Cyanosis, - - Cool to palpation. Skin: No Rash or Ulcers, No Nodules or Sclerosis Neurological: Alert and Oriented x 3, NL Sensation, NL Muscle Strength and Tone , - - CN II-XII intact. Result Diagrams: 12/02/17 18:45 12/02/17 18:45 Additional Lab and Data: Lab Results Assess/Plan/Problems-Billing Assessment: Patient is a 77yo male with a PMH for CT with stentsx2 in 1999, HTN, HLD, Lung Cancer who presents with classic angina, had an elevated troponin, underwent a catheterization with restenting of in-stent stenosis of the LAD. - Patient Problems (1) CAD (coronary artery disease) Current Visit: No Status: Acute Code(s): I25.10 - ATHSCL HEART DISEASE OF [place] CORONARY ARTERY W/O ANG PCTRS SNOMED Code(s): 34016476 Comment: Had NSTEMI and Intermediate risk stress test with restenting of LAD. Hemoglobin A1c pending. Lipid profile WNL. Continue statin. Continue Losartan, Metoprolol, Aspirin, start Brillinta. (2) Lung cancer Current Visit: No Status: Acute Code(s): C34.90 - MALIGNANT NEOPLASM OF UNSP PART OF UNSP BRONCHUS OR LUNG SNOMED Code(s): 952058080 Comment: Underwent radiation and chemo last year. In resmission. Follow up with oncology outpatient. (3) HLD (hyperlipidemia) Current Visit: No Status: Acute Code(s): E78.5 - HYPERLIPIDEMIA, UNSPECIFIED SNOMED Code(s): 46272055 Comment: LDL 57, HDL 37. Continue statin. (4) Emphysema lung Current Visit: No Status: Acute Code(s): J43.9 - EMPHYSEMA, UNSPECIFIED SNOMED Code(s): 56040438 Comment: PRN albuterol Not in exacerbation. (5) Full code status Current Visit: No Status: Acute Code(s): Z78.9 - OTHER SPECIFIED HEALTH STATUS SNOMED Code(s): 694038710 (6) Hypertension Current Visit: No Status: Acute Code(s): I10 - ESSENTIAL (PRIMARY) HYPERTENSION SNOMED Code(s): 11839462 (7) GERD (gastroesophageal reflux disease) Current Visit: Yes Status: Acute Code(s): K21.9 - GASTRO-ESOPHAGEAL REFLUX DISEASE WITHOUT ESOPHAGITIS SNOMED Code(s): 716551208 Comment: Continue Omeprazole (8) BPH (benign prostatic hyperplasia) Current Visit: Yes Status: Acute Code(s): N40.0 - BENIGN PROSTATIC HYPERPLASIA WITHOUT LOWER URINRY TRACT SYMP SNOMED Code(s): 750714180 Comment: Continue ditropan No signs of retention. Associated with prostate cancer. (9) DVT prophylaxis Current Visit: No Status: Acute Code(s): FHC6873 - SNOMED Code(s): 883534440 Comment: Heparin SubQ. Status and Disposition: Inpatient in the ICU. Hopeful discharge tomorrow.
--- NOTE | 2017-12-03 18:13 | CONS ---
CC: Dr. Ibrahim; Hospitalist Service; Dr. Mejias CARDIOLOGY CONSULTATION: DATE OF CONSULT: 12/03/17 REASON FOR CONSULT: History of coronary artery disease, elevated troponins and abnormal stress test. CHIEF COMPLAINT: Exertional chest pain and shortness of breath. HISTORY OF PRESENT ILLNESS: Mr. Alvares is a 77-year-old gentleman with known arthrosclerotic heart disease and past stenting (Dr. Ibrahim, [facility]) who has had a 2-month history of frequent shortness of breath. Yesterday, he was doing some shoveling and developed discomfort reminiscent of his angina. He rested and then was just walking to his truck and developed the same symptoms. Both were associated with shortness of breath and the second symptom was also associated with nausea. The discomfort is lower substernal, across the chest and radiates to the right lower jaw. The patient denies any recent changes in medications or activities. He did say that he has had recurrence of lung cancer requiring radiation therapy and chemo relatively recently. PAST MEDICAL HISTORY: 1. Coronary artery disease - old myocardial infarction, stent to LAD in 1999. 2. Peripheral vascular disease. 3. 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 4. Hypertension. 5. Dyslipidemia. 6. Lung cancer, status post chemotherapy and radiation therapy. 7. Prostate cancer. 8. COPD. 9. Reflux. 10. Diverticulosis based on colonoscopy. MEDICATIONS: Current inpatient medications include: 1. Tylenol p.r.n. 2. Albuterol inhaler p.r.n. 3. Aspirin 81 mg a day. 4. Lipitor 20 mg a day. 5. Colace 200 mg b.i.d. 6. Hydralazine p.r.n. 7. Cozaar 25 mg a day. 8. Melatonin 3 mg q.h.s. 9. Omeprazole 20 mg a day. 10. Zofran p.r.n. nausea. 11. Ditropan 5 mg a day. ALLERGIES: He has no known drug allergies. FAMILY HISTORY: Positive for breast cancer in his mother, prostate cancer in his father. SOCIAL HISTORY: The patient stopped smoking many years ago. Denies alcohol or recreational drug use. 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 REVIEW OF SYSTEMS: Negative for orthopnea or PND. Positive for 2 months significant increase in dyspnea and exertion and anginal symptoms as described above. He denies recent fevers, chills, sweats, change in bowel or bladder habits. Appetite has been good, and he admits to suboptimal dietary intake. He complaints of hip pain which he describes as arthritis (prior claudication, however, described as hip). PHYSICAL EXAM: On exam, the patient is 5 feet 10, weight 179 pounds with a BMI of 25. Vital Signs: Blood pressure 150/62 but ranging down to 119/50, pulse of 54 and regular, respiratory rate of 16, temperature 98 degrees. Oxygen saturation on room air 98%. General Appearance: Older gentleman centripetally overweight, lying at 30 degrees, appears comfortable, in no acute distress. Psychologically, pleasant and cooperative. Neurologically, slightly hard of hearing, otherwise, cranial nerves intact. Grossly normal sensory and motor function in the upper and lower extremities on that exam. Skin: Warm and dry. Age appropriate changes without appreciable cyanosis. HEENT: Pupils were equal and round. Mucous membranes moist. Neck: Without thyromegaly or lymphadenopathy. Palpable carotid pulses, but a bit hard to palpate, but no bruits. Lungs: After coughing were clear with good effort. No wheezes, rales , or rhonchi. Coronary: S1, S2 regular. Distant without murmurs or rubs. Radial pulses are strong. Abdomen: Flat, active bowel sounds, soft, nontender. No hepatosplenomegaly, masses or bruits heard. Femoral pulses, left was palpable without bruits. The right was hard to palpate, no bruits. Distal extremities are lukewarm to warm with distal pulses not able to be palpated easily. DIAGNOSTIC STUDIES/LAB DATA: Studies: EKG on admission yesterday, 12/02/17, shows normal sinus rhythm, 74 beats per minute with deeply inverted T waves, V1 through V4 and when compared with his prior EKG of 06/03/17, the inverted T waves are new. A 12-lead ECG this morning shows sinus bradycardia of 50 beats per minute with persistently inverted T waves. Nuclear stress test reviewed personally and shows a reversible defect at the apical portion of the anterior wall and septum. His resting ejection fraction was 62% and he had a poststress dilatation. Echocardiogram from 09/12/04 showed mild left ventricular hypertrophy, ejection fraction of 50%, aortic valve sclerosis, trace tricuspid insufficiency, PA pressure of 26 mmHg. Normal right ventricular systolic function. Labs: White count 6.7, hemoglobin 13.8, hematocrit 40, platelets 177,000. Sodium 141, potassium 4.0, chloride 103, bicarb 29, BUN 20, creatinine 1.01, glucose 122, ALT of 11. Troponin #1 of 0.06, troponin #2 of 0.11, troponin #3 of 0.10. Lipids pending. TSH 3.67. IMPRESSION AND PLAN: In summary, Mr. Alvares is a 77-year-old gentleman with coronary artery disease, peripheral vascular disease involving the lower extremities, presenting with a history of angina with elevated troponins and abnormal ECG and stress test with reversible ischemia in the apical portion of the anterior wall and septum suggesting an LAD occlusion. He had a stent to the LAD in the distant past. I recommended he proceed to have cardiac catheterization. His peripheral vascular disease will need to be taken into consideration and Dr. Carroll was contacted. In terms of medical management, he is very beta blocked. We will ensure that his lipid control is optimal. His blood pressure control looks good. Additional recommendations will be made pending the results of his cardiac catheterization and lipid panel results. [id number]/[facility] #: [id number] GLADYS
[2017-12-03] MEDS ORDERED: Atorvastatin* 20 MG TAB PO SCH (21:00)
[2017-12-03] MEDS: Ticagrelor* 90 MG TAB PO SCH (21:10)
[2017-12-04 06:43] LABS: ABS Basophils 0 10^3/ul (0-0.2); ABS Eosinophils 0.1 10^3/ul (0-0.6); ABS Lymphocytes 0.8 10^3/ul (1.0-4.8); ABS Monocytes 0.5 10^3/ul (0-0.8); ABS Neutrophils 4.9 10^3/ul (1.5-7.7); ABS Nucleated RBC 0 10^3/ul; Hematocrit 39 % (42-52); Hemoglobin 13.3 g/dl (14.0-18.0); Lymphocyte % 12.7 % (25-47); Mean Corpuscular HGB Conc 35 g/dl (31-36); Mean Corpuscular Hemoglobin 30 pg (27-31); Mean Corpuscular Volume 87 fL (80-94); Mean Platelet Volume 7.6 um3 (7.4-10.4); Nucleated Red Blood Cells % 0; Platelet Count 166 10^3/ul (150-450); Red Blood Count 4.42 10^6/ul (4.0-5.4); Red Cell Distribution Width 15 % (10.5-15); White Blood Count 6.3 10^3/ul (3.5-10.8)
[2017-12-04] MEDS: Aspirin EC TAB* 81 MG TAB.EC PO SCH (07:42)
[2017-12-04] MEDS: Ticagrelor* 90 MG TAB PO SCH (07:42)
[2017-12-04] MEDS: Losartan TAB* 25 MG PO SCH (07:42)
[2017-12-04] MEDS: Docusate CAP* 100 MG PO SCH (07:42)
[2017-12-04] MEDS: Omeprazole CAP* 20 MG PO SCH (07:42)
[2017-12-04] MEDS ORDERED: Metoprolol Succinate XL TAB* 50 MG PO SCH (09:00)
[2017-12-04 10:31] VITALS: BP 151/69
--- NOTE | 2017-12-04 10:53 | PN ---
Subjective Date of Service: 12/04/17 - CC: CP/SOB-resolved Interval History: Pt Post procedure day 1 cath and stent to LAD Walked in ICU, no CP, no SOB, feels well. Son is present. Medications Active Medications: Acetaminophen (Tylenol Tab*) 650 mg PO Q6H PRN PRN Reason: FEVER/PAIN Last Admin: 12/03/17 08:06 Dose: 650 mg Albuterol (Ventolin 2.5 Mg/3 Ml Neb.Rhonda*) 2.5 mg INH Q2H PRN PRN Reason: SOB/WHEEZING Aspirin (Aspirin Ec Low Dose*) 81 mg PO DAILY [facility] Last Admin: 12/04/17 07:42 Dose: 81 mg Atorvastatin Calcium (Lipitor*) 20 mg PO BEDTIME [facility] Last Admin: 12/03/17 21:09 Dose: 20 mg Docusate Sodium (Colace Cap*) 200 mg PO BID [facility] Last Admin: 12/04/17 07:42 Dose: 200 mg Hydralazine HCl (Apresoline Iv*) 10 mg IV Q4H PRN PRN Reason: Systolic >170 Losartan Potassium (Cozaar Tab*) 25 mg PO DAILY [facility] Last Admin: 12/04/17 07:42 Dose: 25 mg Melatonin (Melatonin (Nf)) 3 mg PO BEDTIME PRN; Protocol PRN Reason: Sleep Last Admin: 12/04/17 00:12 Dose: 3 mg Metoprolol Succinate (Toprol Xl Tab*) 50 mg PO DAILY [facility] Last Admin: 12/04/17 07:42 Dose: 50 mg Nitroglycerin (Nitroglycerin Tab 0.4 Mg*) 0.4 mg SL Q5M PRN PRN Reason: ANGINA Omeprazole (Prilosec Cap*) 20 mg PO DAILY@0730 [facility] PRN Reason: Protocol Last Admin: 12/04/17 07:42 Dose: 20 mg Ondansetron HCl (Zofran Inj*) 4 mg IV Q6H PRN PRN Reason: NAUSEA Oxybutynin Chloride (Ditropan Tab*) 5 mg PO DAILY [facility] Last Admin: 12/03/17 08:00 Dose: 5 mg Ticagrelor (Brilinta*) 90 mg PO BID [facility] Last Admin: 12/04/17 07:42 Dose: 90 mg Objective Vital Signs: Temp Pulse Resp BP Pulse Ox 97.8 F 60 19 151/69 97 12/04/17 04:00 12/04/17 10:00 12/04/17 10:00 12/04/17 10:00 12/04/17 10:00 Oxygen Devices in Use Now: None Appearance: older gentleman, lying flat, no distress. Eyes: No Scleral Icterus, PERRLA Ears/Nose/Mouth/Throat: Clear Oropharnyx, Mucous Membranes Moist Neck: No Thyroid Enlargement, Masses Respiratory: Symmetrical Chest Expansion and Respiratory Effort - rare crackles at the bases Cardiovascular: NL Sounds; No Murmurs; No JVD, RRR Abdominal: NL Sounds; No Tenderness; No Distention, No Hepatosplenomegaly Extremities: No Edema, No Clubbing, Cyanosis - Right wrist: cath site w/o bleeding, eccymosis, induration, good distal pulse and color. Skin: No Rash or Ulcers Neurological: Alert and Oriented x 3, NL Muscle Strength and Tone Lines/Tubes/Other Access: Clean, Dry and Intact Peripheral IV Laboratory Results: 12/04/17 06:28 12/04/17 06:28 Total Bilirubin 0.30 mg/dL (0.2-1.0) 12/02/17 18:45 AST 13 U/L (13-39) 12/02/17 18:45 ALT 11 U/L (7-52) 12/02/17 18:45 Alkaline Phosphatase 63 U/L (34-104) 12/02/17 18:45 B-Natriuretic Peptide 59 pg/mL (-100) 12/02/17 18:45 Total Protein 7.1 g/dL (6.4-8.9) 12/02/17 18:45 Albumin 3.9 g/dL (3.2-5.2) 12/02/17 18:45 Globulin 3.2 g/dL (2-4) 12/02/17 18:45 Albumin/Globulin Ratio 1.2 (1-3) 12/02/17 18:45 Triglycerides 144 mg/dL 12/03/17 06:07 Cholesterol 123 mg/dL 12/03/17 06:07 LDL Cholesterol 57 mg/dL 12/03/17 06:07 HDL Cholesterol 36.8 mg/dL 12/03/17 06:07 TSH 3.67 mcIU/mL (0.34-5.60) 12/02/17 18:45 Diagnostic Imaging: Cath 12/03/17: Tight occlusion in LAD w/in prior stent, sp intervention, dictation not yet available. Normal LV systolic function on V gram. Assessment/Plan 77 yo male with NQMI, now with resolution of angina and ARIZA with stenting to LAD (instent restenosis from old intervention). Agree he can go home. CAD risks: Lipids show good control BP shows good control. Pt trying to gain weight back, we discussed healthy diet vs. unhealthy. I recommended cardiac rehab post intervention. Pt will f/u with Dr. 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 Advised pt to have his wrist checked via our team or Dr Villasenor's in a week.
[2017-12-04] MEDS: Oxybutynin TAB* 5 MG PO SCH (11:06)
--- NOTE | 2017-12-05 02:55 | DS ---
CC: Dr. Mejias * DISCHARGE SUMMARY: DATE OF ADMISSION: 12/02/17 DATE OF DISCHARGE: 12/04/17 PRIMARY CARE PROVIDER: Dr. Mejias. PRIMARY TRUCK REPAIR SERVICE ESTIMATOR: Dr. Ibrahim of [place]. CONSULTING CARDIOLOGISTS: Dr. Saima Carrington and Dr. Epi Carroll. MY ATTENDING WHILE IN THE HOSPITAL: Dr. Cherie York.* (DICTATED BY ALEAH GIBBS) PRIMARY DISCHARGE DIAGNOSES: 1. Coronary artery disease. 2. Chest pain. 3. Cardiac catheterization with stent placement. 4. Non-ST elevation myocardial infarction. 5. Prediabetes. SECONDARY DISCHARGE DIAGNOSES: 1. Hypertension. 2. Hyperlipidemia. 3. Coronary artery disease, status post myocardial infarction with 2 stents in 1999. 4. Lung cancer, status post radiation and chemotherapy. 5. Prostate cancer. 6. Emphysema. 7. Benign prostatic hypertrophy. 8. Gastroesophageal reflux disease. STUDIES DONE WHILE IN THE HOSPITAL: Electrocardiogram on 12/02/17 shows normal sinus rhythm, T-wave inversions in V1 through V6, ST segment depression in V4, V5, possible left atrial enlargement, no other enlargement or hypertrophy, QTc of 454, normal axis, and no other abnormalities. EKG from 12/03/17 shows normal sinus rhythm, persistent worse left T-wave inversion in V6, resolution of ST depression in V4 and V5, no other significant changes, QTc of 411, rate of 50. EKG from 12/04/17 shows persistent T-wave inversions, no significant changes, QTc of 455, rate of 62. Chest x-ray from 12/02/17 read as stable patchy density in lateral lung base, unchanged since 04/2017. Chest x-ray could represent atelectasis, scarring or early interstitial lung disease. There are no acute findings. Nuclear medicine scan from 12/03/17 shows intermediate risk based on nuclear portion with partial decreased perfusion at the septum, anteroseptal junction and apex at stress with reversal at rest, grossly decreased perfusion of the inferior wall, which may reflect diaphragmatic attenuation, ejection fraction 62% at rest, hypokinesia of the septum and anteroseptal junction with left ventricular ejection fraction remains within normal limits. Normal estimated ejection and end-diastolic volumes. Scintigraphic images for stress-induced ischemia of the septum and anteroseptal junction as well as apex new compared to 2015 exam, grossly fixed perfusion defect in the inferior wall and represent diaphragmatic attenuation or infarct. These findings have been unchanged compared to 2015 exam likely a transient ischemic dilation suggests potential extensive subendocardial ischemia. MEDICATIONS AT DISCHARGE: 1. Hydrochlorothiazide 25 mg p.o. daily. 2. Oxybutynin 5 mg p.o. daily. 3. Omeprazole 20 mg p.o. q.a.m. 4. Simvastatin 40 mg p.o. at bedtime. 5. Metoprolol succinate 50 mg p.o. daily. 6. Aspirin 81 mg p.o. daily. 7. Losartan 25 mg p.o. daily. 8. Hydroxyzine 10 mg p.o. daily. 9. Dicyclomine 20 mg p.o. b.i.d. 10. Tylenol 650 mg p.o. q.6 hours as needed. 11. Docusate 200 mg p.o. b.i.d. as needed. 12. Nitroglycerin 0.4 mg sublingual q.5 minutes as needed for chest pain. 13. Brilinta 90 mg p.o. b.i.d. New medications at discharge: 1. Tylenol. 2. Docusate. 3. Brilinta. 4. Nitroglycerin. Medications discontinued at discharge: None. HOSPITAL COURSE: This is a brief summary of the patient's presentation. For more details, please see history and physical from Dr. Rl Romero on 12/02. In brief, the patient is a 77-year-old male with past medical history significant for the above, who presents with intermittent sharp chest pain for the past week with the worst nonradiating chest pain beginning on the day of admission 04/15 with shortness of breath and nausea accompanying it after sitting for approximately 10 minutes, but then returning with walking. The patient is pain and symptom free upon arrival to the emergency department. The patient was admitted overnight had one episode of chest pain, which he described as probably gastrointestinal. The patient had an elevated troponin at 0.06, increased to 0.11 and decreased to 0.10. The patient's lipid profile showed LDL cholesterol of 57, HDL cholesterol of 36.8. Hemoglobin A1c of 9.1. Mild anemia with a hemoglobin of 13.8. No other abnormalities. The patient had a nuclear stress test in the morning, which was read as above. The patient was seen in consultation by Dr. Saima Carrington of Cardiology and was recommended to undergo cardiac catheterization, which he did with Dr. Epi Carroll, which showed in-stent restenosis of his LAD, which was stented. The patient was started on Brilinta. The patient was transferred to the ICU. His vital signs remained stable. He had good hemostasis at his right radial access site. He had no chest pain or other complaints overnight from 12/03/17 to 12/04/17. The patient had except for small amount of shortness of breath, which was relieved by caffeine consistent with Brilinta side effect. The patient was stable for discharge on 12/04/17. PHYSICAL EXAMINATION ON THE DAY OF DISCHARGE: General: The patient is a 77- year- old male who appears stated age and sitting comfortably in bed, in no acute distress. Vital signs at time of discharge: Temperature 97.8, heart rate 61, respiratory rate 19, oxygen saturation 97% on room air, blood pressure 151/69. HEENT: Head: Normocephalic, atraumatic. Sclerae anicteric. No conjunctival injection. Nasal mucosa moist. Oral mucosa moist. No pharyngeal erythema, discharge, or exudate. Neck: Supple, nontender. No lymphadenopathy. No carotid bruit auscultated. No JVD. Cardiac: Regular rate and rhythm. No clicks, murmurs, gallops, or rubs. Pulses 2+ in the bilateral dorsalis pedis, posterior tibialis, and radial areas. No bilateral calf extremity noted. Good hemostasis with dried blood on the left radial artery at the wrist. Respiratory: Clear to auscultation bilaterally. No wheezes, rales, or rhonchi. Good air exchange bilaterally. Abdomen: Soft, nontender, nondistended. Bowel sounds present. Normoactive in all 4 quadrants. No hepatosplenomegaly. No abdominal bruits auscultated. Genitourinary: No suprapubic or CVA tenderness. Skin: Clean, dry, intact. No rash. Psychiatric : Pleasant and cooperative. Neuro: Cranial nerves II through XII intact. No focal deficits. Normal gait. Alert and oriented x3. LABORATORY DATA ON DAY OF DISCHARGE: White blood cell count 6.3, hemoglobin 13.3, hematocrit 39, platelet count 166. Sodium 140, potassium 3.5, chloride 106, carbon dioxide 26, anion gap 8, BUN 15, creatinine 0.88, glucose 111, calcium 8.8, magnesium 2.0. DISCHARGE PLAN: The patient will be discharged to home. The patient should take his Brilinta and aspirin and not discontinue these without first consulting with his primary supervisor beet end. The patient should follow up with his primary supervisor beet end as scheduled later this month. The patient should follow up with his primary care provider within 1 week for general medical management. The patient was discussed his slightly elevated hemoglobin A1c. The patient should follow up for cardiac rehab, which can be set up through his primary supervisor beet end. The patient should return to the hospital for pulsating mass or uncontrolled bleeding at the catheter access site. The patient should restrict use of arm per discharge instructions. The patient should return to the hospital for new onset chest pain. The patient can take nitroglycerin as per instructions and then present to the hospital for evaluation. The patient should also return to the hospital for other alarming symptoms such as shortness of breath or syncope. The patient should engage in activity as tolerated. The patient should have a heart healthy diet without caffeine. The patient lost a significant amount of weight recently. The patient instructed by Cardiology on healthy eating choices. TIME SPENT: Approximately 60 minutes was spent on the discharge, 30 of which was spent [id number] with the patient, obtaining history and physical, and discussing treatment plan. ALEAH GIBBS [id number]/[facility] #: [id number] GLADYS
--- NOTE | 2017-12-07 11:13 | CATH ---
CC: Dr. Mejias; Dr. Ibrahim, [place]; Dr. Carroll STENT REPORT: DATE OF PROCEDURE: 12/03/17 PRIMARY CARE DOCTOR: Dr. Mejias. PAINTER SIGN MAINTENANCE: Dr. Ibrahim. PROCEDURE: Right radial artery access, bilateral selective coronary cineangiography, left heart cath eterization, left ventriculography, stent placement, LAD 2.75 x 20 drug-eluting stent. HISTORY: A 77-year-old male with remote history of LAD stenting 17 years ago, presenting with class III angina for past month with recent acceleration. Stress imaging showed an anterior area of ischem ia. PROCEDURE ACCESS: Right radial artery sheath, 6F Slender. MEDICATIONS: 1. Subcu lidocaine. 2. IV Versed. 3. IV fentanyl. 4. Heparin 3000 units. 5. Verapamil 3 mg. 6. Nitroglycerin 300 mcg IA, heparin 3000 units, 7000 units IV. 7. Brilinta 180 mg p.o. loading dose. DIAGNOSTIC CATHETERS: 5F TIG4, 5-FL3.5, 5F pigtail. Guiding catheter - Ikari left 3.75, wire 14 BMW, used to deploy 2.75 x 20 Synergy drug-eluting stent inside the previous LAD stent, 11 atmospheres 12 seconds, then post dilated with a 2.75 x 20 NC ballo on, 17 atmospheres, 45 seconds. LV gram was then performed. HEMODYNAMICS: Initial BP 164/66, LV 154/6, no aortic valve gradient on pullback, after 10 beats post pullback. ANGIOGRAPHY: RCA: The RCA is not dominant, supplies a miniscule branch to the crux. It has no steno sis. Left main: The left main is short, normal. LAD: The LAD is large, extends toward the apex and supplies the infraapical segment. There is a afshan gthy, previously stented segment in the proximal third of the LAD, there is a gradually tapering in-s tent restenosis maximal at approximately 80%. The first diagonal is small, there is an almost immedi ate second diagonal or side branch of the first diagonal, which fills very slowly, has near occlusion at its ostium, diameter is less than 1.7 mm. Just beyond the diagonal, the LAD has a 30% to 40% fernando nosis, this was not treated. Distally LAD has LINH-2 flow. Circumflex: The circumflex is large, dominant with small ramus, large first marginal, which trifurca jamel and supplies most of the obtuse margin. The AV groove circumflex then has minor luminal irregula rity, supplies smaller posterolateral branches before ending with a large circumflex PDA. The circum flex has no significant stenosis. After LAD stent placement for in-stent restenosis, late, there is no residual stenosis, flow is LINH-3. LV gram: LV function is normal. Estimated LVEF 60%. There is no MR. CONCLUSION: 1. Single-vessel disease with in-stent restenosis, late, excellent angiographic results with drug-el uting stent placement. 2. Normal LV systolic function. 3. Left-sided hemodynamics. 4. Successful right radial artery access site. [id number]/[facility] #: [id number]
== END 2017-12-04 10:15 | disposition home or self-care (01) | DRG 247 ==
LOC: ED 18:14 → MEDTELE 19:38 → OBSVTOIN 12-03 15:28 → ICU 12-03 15:28
PROVIDERS: ADMIT Hospitalist; ATTEND Internal Medicine Cardiovascular Disease
PROC: 4A023N7 Measurement of Cardiac Sampling and Pressure, Left Heart, Percutaneous Approach (ICD-10-PCS; 2017-12-03)
PROC: B2111ZZ Fluoroscopy of Multiple Coronary Arteries using Low Osmolar Contrast (ICD-10-PCS; 2017-12-03)
PROC: 027034Z Dilation of Coronary Artery, One Artery with Drug-eluting Intraluminal Device, Percutaneous Approach (ICD-10-PCS; principal; 2017-12-03 12:00)
DX: I21.4 Non-ST elevation (NSTEMI) myocardial infarction (principal); T82.855A Stenosis of coronary artery stent, initial encounter; I25.119 Atherosclerotic heart disease of native coronary artery with unspecified angina pectoris; R73.03 Prediabetes; J43.9 Emphysema, unspecified; E78.5 Hyperlipidemia, unspecified; F41.9 Anxiety disorder, unspecified; I10 Essential (primary) hypertension; R94.01 Abnormal electroencephalogram [EEG]; E78.00 Pure hypercholesterolemia, unspecified; K21.9 Gastro-esophageal reflux disease without esophagitis; F32.9 Major depressive disorder, single episode, unspecified; I25.2 Old myocardial infarction; Z92.3 Personal history of irradiation; Z95.5 Presence of coronary angioplasty implant and graft; Z92.21 Personal history of antineoplastic chemotherapy; Z85.46 Personal history of malignant neoplasm of prostate; Z85.118 Personal history of other malignant neoplasm of bronchus and lung; Z90.49 Acquired absence of other specified parts of digestive tract; Z98.42 Cataract extraction status, left eye; Z98.41 Cataract extraction status, right eye; Z90.79 Acquired absence of other genital organ(s); Z82.49 Family history of ischemic heart disease and other diseases of the circulatory system; Z87.891 Personal history of nicotine dependence; Z80.42 Family history of malignant neoplasm of prostate; Z80.3 Family history of malignant neoplasm of breast; N40.0 Benign prostatic hyperplasia without lower urinary tract symptoms; I73.9 Peripheral vascular disease, unspecified; D64.9 Anemia, unspecified; R06.02 Shortness of breath; T50.995A Adverse effect of other drugs, medicaments and biological substances, initial encounter
CPT/HCPCS: 36415; 71045; 78452; 80048; 80053; 80061; 83036; 83690; 83735; 83880; 84443; 84484; 85025; 87641; 93005; 93017; 93458; 99156; 99157; 99283; A9270-GY; A9502; C1725; C1769; C1876; C9600-LD; J0280; J1644; J2250; J2270; J2785; J3010

== ENCOUNTER 2018-02-17 09:54 | Emergency (ER) | payer MEDICARE ==
[2018-02-17] MEDS ORDERED: Metoclopramide IV* 5 MG/ML 2 ML VIAL IV ONE (10:25)
[2018-02-17] MEDS ORDERED: NS 0.9% 1000 ML* 1,000 ML IV ONE (10:26)
--- NOTE | 2018-02-17 11:05 | RAD ---
Indication: Lower abdominal pain beginning this morning. Constipation. History of prostate and lung carcinoma. Previous pelvic radiation. Comparison: January 07, 2018 CT. Technique: Supine and upright views of the abdomen. Report: Interstitial fibrosis noted at the lung bases. Bilateral nipple shadows noted. Negative for free air beneath the diaphragm. Moderate stool in colon without visualized significant rectal distention with stool. Negative for dilated large or small bowel loops. RIGHT upper quadrant and bilateral pelvic surgical clips. Vascular calcifications noted. Negative for mass effect. Unremarkable soft tissue contours. IMPRESSION: No acute abdominal pelvic pathologic process evident.
[2018-02-17 11:37] LABS: ABS Basophils 0 10^3/ul (0-0.2); ABS Eosinophils 0 10^3/ul (0-0.6); ABS Lymphocytes 0.4 10^3/ul (1.0-4.8); ABS Monocytes 0.9 10^3/ul (0-0.8); ABS Nucleated RBC 0 10^3/ul; Eosinophil % 0.1 % (0-6); Hematocrit 38 % (42-52); Hemoglobin 12.6 g/dl (14.0-18.0); Lymphocyte % 3.3 % (25-47); Mean Corpuscular HGB Conc 34 g/dl (31-36); Mean Corpuscular Hemoglobin 30 pg (27-31); Mean Corpuscular Volume 89 fL (80-94); Mean Platelet Volume 7.8 um3 (7.4-10.4); Nucleated Red Blood Cells % 0; Platelet Count 141 10^3/ul (150-450); Red Blood Count 4.22 10^6/ul (4.00-5.40); Red Cell Distribution Width 17 % (10.5-15); White Blood Count 12.4 10^3/ul (3.5-10.8)
[2018-02-17 12:04] LABS: EGFR Non-African American 71.6 (>60)
[2018-02-17] MEDS ORDERED: Iohexol 300* (CONTRAST) 10 ML SDV IV ONE (12:26)
--- NOTE | 2018-02-17 14:57 | RAD ---
CLINICAL HISTORY: Abdominal pain COMPARISON: January 07, 2018 TECHNIQUE: Multiple contiguous axial CT scans were obtained of the abdomen and pelvis after the administration of intravenous contrast. Coronal and sagittal multiplanar reformations are submitted for review. Oral contrast was not administered. Delayed images were obtained through the abdomen. FINDINGS: LUNG BASES: The lung bases are clear. LIVER: The liver is diffusely low in attenuation compared to the spleen. There are no focal hepatic parenchymal masses. BILE DUCTS: There is no intrahepatic or extrahepatic biliary dilatation. GALLBLADDER: The gallbladder is not visualized. Surgical clips are noted in the gallbladder fossa. PANCREAS: The pancreas is normal, without mass or ductal dilatation. SPLEEN: Normal in size and appearance. UPPER GI TRACT: Evaluation of the gastrointestinal tract is limited by incomplete gastric distention. The upper GI tract is unremarkable. SMALL BOWEL AND MESENTERY: The small bowel is normal in contour, course, and caliber. There is no obstruction or dilatation. COLON: There is diverticulosis of the colon. There is diffuse mucosal thickening of the rectosigmoid colon with a small amount of fluid along the perirectal fascia. ADRENALS: Normal bilaterally. KIDNEYS: There is a parapelvic cyst of the left kidney. There is no shadowing calculus of the midpole of the right kidney measuring 0.2 cm. BLADDER: The bladder is smooth in contour. PELVIC ORGANS: The pelvic organs are not visualized. AORTA: There is calcific atherosclerotic disease of the abdominal aorta and its branches. There is mild focal dilatation of the infrarenal abdominal aorta up to 3 cm transversely, stable from the previous examination. IVC: Unremarkable LYMPH NODES: There is no lymphadenopathy by size criteria. ABDOMINAL WALL: There is no evidence for abdominal wall hernia. BONES AND SOFT TISSUES: There are mild diffuse degenerative changes. OTHER: None IMPRESSION: 1. THERE IS DIFFUSE MUCOSAL THICKENING AND PERICOLONIC INFLAMMATORY CHANGE ALONG THE DISTAL SIGMOID COLON AND RECTUM WITH A SMALL AMOUNT OF FREE FLUID. THE APPEARANCE IS SUGGESTIVE OF COLITIS, THOUGH DIVERTICULITIS IS ALSO WITHIN THE DIFFERENTIAL. 2. FATTY INFILTRATION OF THE LIVER. 3. ATHEROSCLEROSIS. 4. STABLE ABDOMINAL AORTIC ANEURYSM
[2018-02-17] MEDS ORDERED: predniSONE TAB* 10 MG PO ONE (15:12)
[2018-02-17] MEDS ORDERED: Ciprofloxacin TAB* 500 MG PO ONE (15:15)
[2018-02-17] MEDS ORDERED: metroNIDAZOLE TAB* 250 MG PO ONE (15:15)
[2018-02-17] MEDS ORDERED: oxyCODONE/Acetamin 5/325 MG* TAB PO ONE (15:20)
[2018-02-17 15:57] VITALS: BP 129/41
--- NOTE | 2018-02-17 16:08 | ED ---
Lavelle Manuel Stephanie, scribed for Andre Trinidad MD on 02/17/18 at 1040 . Abdominal Pain/Male - HPI Summary HPI Summary: The pt is a 77 y/o M presenting to the ED with c/o abd pain that began this morning at 06:00. His abd pain is located in the LLQ. His pain is rated as a 6 at present and as a 9 at its worst. Symptoms include N/V and lack of BM for 2 days. The pt denies CP, SOB, SMITH and dizziness. - History of Current Complaint Chief Complaint: EDAbdPain Stated Complaint: ABD PAIN Time Seen by Provider: 02/17/18 10:37 Hx Obtained From: Patient Onset/Duration: Sudden Onset, Lasting Hours, Still Present Timing: Constant Severity Currently: Moderate Pain Intensity: 8 Pain Scale Used: 0-10 Numeric Location: Discrete At: LLQ Radiates: No Character: Cramping Aggravating Factor(s): Nothing Alleviating Factor(s): Nothing Associated Signs And Symptoms: Positive: Nausea, Vomiting, Other - lack of BM for 2 days - Allergies/Home Medications Allergies/Adverse Reactions: Allergies Allergy/AdvReac Type Severity Reaction Status Date / Time No Known Allergies Allergy Verified 11/19/17 12:36 Home Medications: Home Medications Clopidogrel TAB* [Plavix TAB*] 75 mg PO DAILY 02/17/18 [History Confirmed ] Famotidine TAB* [Pepcid 20 MG TAB*] 20 mg PO BID 02/17/18 [History Confirmed ] guaiFENesin/CODIEN 100MG-10MG* [Robitussin AC 100Mg-10Mg*] 10 ml PO Q4H PRN [History Confirmed 02/17/18] PMH/Surg Hx/FS Hx/Imm Hx Endocrine/Hematology History: Reports: Hx Anemia - chemo-induced Denies: Hx Diabetes, Hx Systemic Lupus Erythematosus Cardiovascular History: Reports: Hx Angina, Hx Coronary Artery Disease, Hx Hypercholesterolemia, Hx Hypertension - ON MEDS, Hx Myocardial Infarction Denies: Hx Congestive Heart Failure, Hx Pacemaker/ICD, Hx Valvular Heart Disease Comment Only: Other Cardiovascular Problems/Disorders - - Respiratory History: Reports: Hx Asthma, Hx Chronic Obstructive Pulmonary Disease (COPD), Hx Lung Cancer - -chemo, last CT scan was clear, Other Respiratory Problems/Disorders - LUNG CA GI History: Reports: Hx Gastroesophageal Reflux Disease Comment Only: Other GI Disorders - HX PROSTATE CA 1998, LUNG CA 2013 WITH RADIATIONS [place] History: Reports: Other Problems/Disorders - hx prostate ca Denies: Hx Dialysis, Hx Renal Disease Musculoskeletal History: Reports: Hx Back Problems - disc removal, Other Musculoskeletal History - R knee surgery Denies: Hx Rheumatoid Arthritis Sensory History: Reports: Hx Contacts or Glasses Denies: Hx Hearing Aid Opthamlomology History: Reports: Hx Contacts or Glasses Psychiatric History: Denies: Hx Panic Disorder - Cancer History Cancer Type, Location and Year: lung ca dx 2010 radiation and chemo last dose 2010, second round in 2016 ending in april, prostate CA Hx Chemotherapy: No - Surgical History Surgery Procedure, Year, and Place: back 1979,prostate removed r/t ca 1994, cardiac stent 1999,knee right,oliver, appendectomy, bilat cataract, Infectious Disease History: No Infectious Disease History: Denies: Traveled Outside the [place] in Last 30 Days - Family History Known Family History: Positive: Cardiac Disease - Social History Occupation: Employed Full-time Lives: With Family Alcohol Use: None Hx Substance Use: No Substance Use Type: Reports: None Hx Tobacco Use: Yes Smoking Status (MU): Former Smoker Review of Systems Negative: Fever Positive: Abdominal Pain, Vomiting, Nausea, Other - lack of BM for 2 days Negative: Slurred Speech All Other Systems Reviewed And Are Negative: Yes Physical Exam - Summary Physical Exam Summary: VITAL SIGNS: Reviewed. GENERAL: Patient is a well-developed and nourished MALE who is lying comfortable in the stretcher. Patient is not in any acute respiratory distress. HEAD AND FACE: Normocephalic EYES: PERRLA, EOMI x 2. EARS: Hearing grossly intact. MOUTH: Oropharynx within normal limits. NECK: Supple, trachea is midline, no adenopathy, no JVD, no carotid bruit. CHEST: Symmetric, no tenderness at palpation LUNGS: Clear to auscultation bilaterally. No wheezing or crackles. CVS: Regular rate and rhythm, S1 and S2 present, no murmurs or gallops appreciated. ABDOMEN: Soft, bilateral lower abd tenderness. Bowel sounds are normal. No abdominal abnormal pulsations. EXTREMITIES: Full ROM in all major joints, no edema, no cyanosis or clubbing. NEURO: Alert and oriented x 3. No acute neurological deficits. Speech is normal and follows commands. SKIN: Dry and warm Triage Information Reviewed: Yes Vital Signs On Initial Exam: Initial Vitals Temp Pulse Resp BP Pulse Ox 96.3 F 65 18 182/66 97 02/17/18 10:05 02/17/18 10:05 02/17/18 10:05 02/17/18 10:05 02/17/18 10:05 Vital Signs Reviewed: Yes Diagnostics - Vital Signs Vital Signs Temp Pulse Resp BP Pulse Ox 02/17/18 10:05 96.3 F 65 18 182/66 97 - Laboratory Lab Results: Lab Results 02/17/18 02/17/18 02/17/18 Range/Units 11:23 11:23 11:23 WBC 12.4 H (3.5-10.8) 10^3/ul RBC 4.22 (4.00-5.40) 10^6/ul Hgb 12.6 L (14.0-18.0) g/dl Hct 38 L (42-52) % MCV 89 (80-94) fL MCH 30 (27-31) pg MCHC 34 (31-36) g/dl RDW 17 H (10.5-15) % Plt Count 141 L (150-450) 10^3/ul MPV 7.8 (7.4-10.4) um3 Neut % (Auto) 89.1 H (38-83) % Lymph % (Auto) 3.3 L (25-47) % Wilkin % (Auto) 7.3 H (0-7) % Eos % (Auto) 0.1 (0-6) % Baso % (Auto) 0.2 (0-2) % Absolute Neuts (auto) 11.0 H (1.5-7.7) 10^3/ul Absolute Lymphs (auto) 0.4 L (1.0-4.8) 10^3/ul Absolute Monos (auto) 0.9 H (0-0.8) 10^3/ul Absolute Eos (auto) 0 (0-0.6) 10^3/ul Absolute Basos (auto) 0 (0-0.2) 10^3/ul Absolute Nucleated RBC 0 10^3/ul Nucleated RBC % 0 Sodium 141 (139-145) mmol/L Potassium 3.4 L (3.5-5.0) mmol/L Chloride 103 (101-111) mmol/L Carbon Dioxide 31 (22-32) mmol/L Anion Gap 7 (2-11) mmol/L BUN 16 (6-24) mg/dL Creatinine 1.01 (0.67-1.17) mg/dL Est GFR ( Amer) 92.1 (>60) Est GFR (Non-Af Amer) 71.6 (>60) BUN/Creatinine Ratio 15.8 (8-20) Glucose 107 H (70-100) mg/dL Lactic Acid 1.7 (0.5-2.0) mmol/L Calcium 9.4 (8.6-10.3) mg/dL Total Bilirubin 0.50 (0.2-1.0) mg/dL AST 15 (13-39) U/L ALT 17 (7-52) U/L Alkaline Phosphatase 65 (34-104) U/L C-Reactive Protein 22.41 H (< 5.00) mg/L B-Natriuretic Peptide ( - 100) pg/mL Total Protein 6.8 (6.4-8.9) g/dL Albumin 3.8 (3.2-5.2) g/dL Globulin 3.0 (2-4) g/dL Albumin/Globulin Ratio 1.3 (1-3) Lipase 54 (11.0-82.0) U/L // Range/Units 11:23 WBC (3.5-10.8) 10^3/ul RBC (4.00-5.40) 10^6/ul Hgb (14.0-18.0) g/dl Hct (42-52) % MCV (80-94) fL MCH (27-31) pg MCHC (31-36) g/dl RDW (10.5-15) % Plt Count (150-450) 10^3/ul MPV (7.4-10.4) um3 Neut % (Auto) (38-83) % Lymph % (Auto) (25-47) % Wilkin % (Auto) (0-7) % Eos % (Auto) (0-6) % Baso % (Auto) (0-2) % Absolute Neuts (auto) (1.5-7.7) 10^3/ul Absolute Lymphs (auto) (1.0-4.8) 10^3/ul Absolute Monos (auto) (0-0.8) 10^3/ul Absolute Eos (auto) (0-0.6) 10^3/ul Absolute Basos (auto) (0-0.2) 10^3/ul Absolute Nucleated RBC 10^3/ul Nucleated RBC % Sodium (139-145) mmol/L Potassium (3.5-5.0) mmol/L Chloride (101-111) mmol/L Carbon Dioxide (22-32) mmol/L Anion Gap (2-11) mmol/L BUN (6-24) mg/dL Creatinine (0.67-1.17) mg/dL Est GFR ( Amer) (>60) Est GFR (Non-Af Amer) (>60) BUN/Creatinine Ratio (8-20) Glucose (70-100) mg/dL Lactic Acid (0.5-2.0) mmol/L Calcium (8.6-10.3) mg/dL Total Bilirubin (0.2-1.0) mg/dL AST (13-39) U/L ALT (7-52) U/L Alkaline Phosphatase (34-104) U/L C-Reactive Protein (< 5.00) mg/L B-Natriuretic Peptide 73 ( - 100) pg/mL Total Protein (6.4-8.9) g/dL Albumin (3.2-5.2) g/dL Globulin (2-4) g/dL Albumin/Globulin Ratio (1-3) Lipase (11.0-82.0) U/L Result Diagrams: 02/17/18 11:23 02/17/18 11:23 Lab Statement: Any lab studies that have been ordered have been reviewed, and results considered in the medical decision making process. - Radiology Abdomen XRay Xray Interpretation: No Acute Changes Radiology Interpretation Completed By: Radiologist - No acute abdominal pelvic pathologic process evident. ED physician has reviewed this report. - CT Abdomen/Pelvis CT Interpretation: No Acute Changes CT Interpretation Completed By: Radiologist - 1. THERE IS DIFFUSE MUCOSAL THICKENING AND PERICOLONIC INFLAMMATORY CHANGE ALONG THE DISTAL SIGMOID COLON AND RECTUM WITH A SMALL AMOUNT OF FREE FLUID. THE APPEARANCE IS SUGGESTIVE OF COLITIS, THOUGH DIVERTICULITIS IS ALSO WITHIN THE DIFFERENTIAL. 2. FATTY INFILTRATION OF THE LIVER. 3. ATHEROSCLEROSIS. 4. STABLE ABDOMINAL AORTIC ANEURYSM ED physician has reviewed this report. - EKG 10:50 Cardiac Rate: NL EKG Rhythm: Sinus Rhythm - [address] Segment: Normal EKG Interpretation: no ST elevations, nml axis Abdominal Pain Fem Course/Dx - Course Assessment/Plan: Blood test results shows WBCs of 12.4, slight anemia, potassium of 3.4, glucose of 107. CRP of 22.4. Abdominal x-ray impression: No acute abdominal pelvic pathologic process evident. Abdominal pelvic CT impression: Diffuse mucosal thickening and pericolonic inflammatory changes along the distal sigmoid colon and rectum with small amount of free fluid. Appearance is suggestive of colitis. Although diverticulitis is also a differential diagnosis. Fatty liver infiltration, atherosclerosis and a stable abdominal aortic aneurysm. In the ED course the patient was given IV fluids, the patient was given ciprofloxacin and Flagyl for the diverticulitis. Patient was feeling better and the pain has decreased. I discussed all the findings and test results with the patient. Patient was instructed to return to the emergency room immediately if any of the symptoms return or worsens. Plan of care was discussed with the patient and understands and agrees. All questions were answered at patient satisfaction. There were no further complaints or concerns. Lung exam before discharge: CTA B/L. Good air exchange. No wheezing or crackles heard. CVS: S1 and S2 present. No murmurs appreciated. Patient is alert and oriented x 3. Patient is hemodynamically stable. Patient will be discharged home with follow up PCP in the next 2-3 days - Diagnoses Provider Diagnoses: Diverticulitis Discharge - Sign-Out/Discharge Documenting (check all that apply): Discharge/Admit/Transfer - Discharge - Discharge Plan Condition: Stable Disposition: HOME Prescriptions: Ciprofloxacin TAB* [Cipro 500 MG TAB*] 500 mg PO BID #20 tab metroNIDAZOLE [Flagyl 500 MG TAB] 500 mg PO TID #30 tab Patient Education Materials: Diverticulitis (ED) Referrals: Reynaldo Mejias MD [Primary Care Provider] - 3 Days Additional Instructions: Return to the ED for new or worsening symptoms. - Billing Disposition and Condition Condition: STABLE Disposition: Home The documentation as recorded by the Lavelle oakes Stephanie accurately reflects the service I personally performed and the decisions made by , Andre Trinidad MD.
== END 2018-02-17 15:59 | disposition home or self-care (01) ==
LOC: ED 09:54
DX: K57.92 Diverticulitis of intestine, part unspecified, without perforation or abscess without bleeding (principal); R11.2 Nausea with vomiting, unspecified; R10.32 Left lower quadrant pain; Z87.891 Personal history of nicotine dependence
CPT/HCPCS: 36415; 74019; 74177; 80053; 83605; 83690; 83880; 85025; 86140; 93005; 96374; 96375; 99284; A9270-GY; J2765; Q9967

== ENCOUNTER 2018-04-22 07:17 | Day surgery (SDC) | payer MEDICARE ==
[~2018-04-22 07:17] MED LIST: Buffered Lidocaine 0.9% SYRIN* 5 ML/SYR SYRINGE INTRADERM ONE; NS 0.9% 1000 ML* 1,000 ML IV SCH
[2018-04-22] MEDS ORDERED: ceFAZolin 2 GM PREMIX (*) 2 GM/50 ML BAG IVPB ONE (07:31)
[2018-04-22] MEDS ORDERED: fentaNYL* 50 MCG/ML 2 ML VIAL (100 MCG VIAL) ONE (08:18)
[2018-04-22] MEDS ORDERED: Midazolam* 1 MG/ML 2 ML VIAL (2 MG) ONE (08:18)
[2018-04-22] MEDS ORDERED: Lidocaine 1% INJ* 10 MG/ML 30 ML SDV ONE (08:21)
[2018-04-22] MEDS ORDERED: Lidocaine 2% PF * 5 ML VIAL ONE (08:52)
[2018-04-22] MEDS ORDERED: Propofol* 10 MG/ML 20 ML BTL IV PUSH ONE (08:52)
[2018-04-22] MEDS ORDERED: Famotidine IV* 10 MG/ML 2 ML (20 mg) ONE (08:52)
[2018-04-22] MEDS ORDERED: Dexamethasone IV* 4 MG/ML 1 ML (4 MG) ONE (08:52)
[2018-04-22] MEDS ORDERED: DiMENhydriNATE IV* 50 MG/ML VIAL IV PUSH PRN (08:59)
[2018-04-22] MEDS ORDERED: fentaNYL* 50 MCG/ML 2 ML VIAL (100 MCG VIAL) IV PRN (08:59)
[2018-04-22] MEDS ORDERED: Acetaminophen TAB* 325 MG PO PRN (08:59)
[2018-04-22] MEDS ORDERED: Levalbuterol 0.63MG/3ML NEB* UNIT OF USE INH PRN (08:59)
[2018-04-22] MEDS ORDERED: Ondansetron INJ* 2 MG/ML VIAL IV PRN (08:59)
[2018-04-22] MEDS ORDERED: Naloxone* 0.4 MG/ML 1 ML VIAL IV PRN (08:59)
--- NOTE | 2018-04-22 10:07 | RAD ---
INDICATION: PowerPort placement COMPARISONS: None relevant TECHNIQUE: Fluoroscopy was provided for a vascular access procedure. Total fluoroscopy time is: 43.1 seconds FINDINGS: Spot images demonstrate a left-sided chest port from a subclavian approach with the tip overlying the superior vena cava. IMPRESSION: FLUOROSCOPY WAS PROVIDED FOR A VASCULAR ACCESS PROCEDURE CPT II Codes: G9500
--- NOTE | 2018-04-22 10:15 | BRIEFOPN ---
Brief Operative Note - Surgery Procedures: Procedures COLONOSCOPY (11/28/12) DILATION OF 1 COR ART WITH DRUG-ELUT INTRA, PERC APPROACH (12/03/17) FLUOROSCOPY OF MULT COR ART USING L OSM CONTRAST (12/03/17) KNEE ARTHROSCOPY (02/17/95) MEASURE OF CARDIAC SAMPL & PRESSURE, L HEART, PERC APPROACH (12/03/17) OTH ARTHROTOMY-KNEE (02/17/95) 04/22/18 Op Note (dictated) Pre-op dx: lung ca Post-op dx: same Procedure: Power port placement Surgeon: Benjamin Asst: none Anesth: local-MAC EBL: 10 cc SCDs on during surgery Abx: given pre-op Complications: none Pt. tolerated procedure well and was transferred to in a stable condition. CLFoster
[2018-04-22 10:32] VITALS: BP 144/57
--- NOTE | 2018-04-22 10:42 | RAD ---
HISTORY: s/p line placement, r/o pntx COMPARISONS: December 02, 2017 VIEWS: 1: frontal portable view of the chest at 10:30 AM FINDINGS: LINES AND TUBES: A left-sided chest port is noted. CARDIOMEDIASTINAL SILHOUETTE: The cardiomediastinal silhouette is normal for portable technique. PLEURA: The costophrenic angles are sharp. No pleural abnormalities are noted. LUNG PARENCHYMA: There is hyperinflation. There is stable focal opacification of the left lung base. ABDOMEN: The upper abdomen is clear. There is no subphrenic gas. BONES AND SOFT TISSUES: The patient is status post anterior cervical fusion. IMPRESSION: 1. LINES AND TUBES ABOVE. 2. NO APPRECIABLE PNEUMOTHORAX. 3. EMPHYSEMA. 4. STABLE DENSITY OF THE LEFT LOWER LUNG.
--- NOTE | 2018-04-22 18:45 | OP ---
CC: [facility]; Dr. Reynaldo Mejias; [facility] OPERATIVE REPORT: DATE OF OPERATION: 04/22/18 DATE OF : 40 SURGEON: Mere Alexander MD SWIMMING [employer]OL MAINTENANCE SUPERVISOR: None for this case. PRE-OP DIAGNOSIS: Lung cancer. POST-OP DIAGNOSIS: Lung cancer. OPERATIVE PROCEDURE: PowerPort placement. INDICATIONS: Mr. Alvares is a 78-year-old male with a diagnosis of lung cancer. He has been receivin g chemotherapy, but who is running out of veins. Plans were therefore made for PowerPort placement. DESCRIPTION OF PROCEDURE: He was brought to the operating room, placed on the OR table in supine pos ition and given IV sedation. The left chest was prepped and draped in the usual sterile fashion so a s to avoid scar tissue on the right chest, which had a previous PowerPort. Then after infiltrating w ith local anesthetic, attempts were made at accessing the left IJ vein; however even with ultrasound guidance and watching the needle go right into the vein, there was never any blood return from this l ocation so the decision was made to proceed with subclavian approach. Local anesthetic was infiltrat ed into the skin and then using a Seldinger technique, 1 attempt was made at accessing the left subcl jared vein, which was successful. The wire was advanced into the superior vena cava then a port pock et was created. This was done by infiltrating the chest wall with local anesthetic making an incisio n and then creating a pocket inferiorly with electrocautery. Once the pocket was of a size to accomm odate the port, the catheter was tunneled from the port pocket site to the wire exit site. Then, a d ilator and introducer were advanced over the wire under fluoroscopic visualization to an appropriate depth. The wire and dilator were removed and then the catheter was advanced through the introducer i nto the appropriate depth. This was also done under fluoroscopic visualization. The introducer was peeled away and then the catheter was brought back to an appropriate depth and trimmed to an appropri ate length attached to the port. The port was inserted into the pocket and secured to the chest wall with 2-0 Prolene. The function of the port was checked and found to be adequate. Closure was accom plished, this was done with 3-0 Vicryl in the subcutaneous layer and the skin was closed with 4-0 Pro ginny in a subcuticular fashion. Steri-Strips and dry sterile dressing were applied after the port wa s accessed with Faulkner needle for later use in chemotherapy today. [id number]/[facility] #: [id number]
== END 2018-04-22 10:45 | disposition home or self-care (01) ==
LOC: OR 07:17
PROVIDERS: ATTEND Surgery
DX: C34.90 Malignant neoplasm of unspecified part of unspecified bronchus or lung (principal); I25.10 Atherosclerotic heart disease of native coronary artery without angina pectoris; I25.2 Old myocardial infarction; Z95.5 Presence of coronary angioplasty implant and graft; Z87.891 Personal history of nicotine dependence; Z85.46 Personal history of malignant neoplasm of prostate; J44.9 Chronic obstructive pulmonary disease, unspecified; Z79.01 Long term (current) use of anticoagulants
CPT/HCPCS: 71045; 76000; C1788; J0690; J1100; J1642; J2250; J2704; J3010

== ENCOUNTER 2018-05-16 11:19 | Inpatient (IN) | payer MEDICARE ==
--- NOTE | 2018-05-16 11:47 | ED ---
Shortness of Breath - HPI Summary HPI Summary: This patient is a 78 year old M presenting to ED with a chief complaint of SOB since 1 month ago. The CC is described as worsened since onset. Patient shows 88 % on RA. Patient placed on 2LNC in triage. The patient rates the pain 0/10 in severity. Symptoms aggravated by movement (i.e. putting on his clothes or sitting up). Symptoms alleviated by nothing. Patient reports productive cough with cloudy and thick sputum (no blood), CP secondary to cough, and slight weight loss and decreased appetite (secondary to chemo). Patient denies LE edema , fever, and chills. PMHx of lung CA (sees Dr. Hale) and is doing chemo for it ( last had it 05/06/18), COPD, PNA, and sepsis. Patient is not on O2 at home. Patient is escorted by his 's integrated circuit layout designer, Sulma Valderrama. Sulma will be going back to the patient's home. In case she needs to be called, the patient's home # is . Her cell # is . - History of Current Complaint Chief Complaint: EDShortnessOfBreath Time Seen by Provider: 05/16/18 11:28 Hx Obtained From: Patient Onset/Duration: Sudden Onset, Lasting Weeks, Still Present Timing: Constant Current Severity: None Aggrevating Factors: Movement - i.e. putting on his clothes or sitting up Alleviating Factors: Nothing Associated Signs & Symptoms: Cough (Productive) - Allergy/Home Medications Allergies/Adverse Reactions: Allergies Allergy/AdvReac Type Severity Reaction Status Date / Time bupropion Allergy Unknown Verified 05/16/18 11:37 Reaction Details clarithromycin [From Biaxin] Allergy Headache Verified 05/16/18 11:37 ramipril Allergy Unknown Verified 05/16/18 11:37 Reaction Details Home Medications: Home Medications Cefuroxime 500 MG(NF) 500 mg PO BID 05/16/18 [History Confirmed 05/16/18] Clopidogrel TAB* [Plavix TAB*] 75 mg PO DAILY 05/16/18 [History Confirmed ] Dicyclomine CAP* [Bentyl CAP*] 40 mg PO DAILY 05/16/18 [History Confirmed ] Esomeprazole(NF) [NexIUM(NF)] 40 mg PO DAILY 05/16/18 [History Confirmed ] Fluticasone-Salmeterol 250-50* [Advair Diskus 250-50*] 1 puff INH BID 05/16/18 [ History Confirmed 05/16/18] Hydrochlorothiazide TAB* [Hydrodiuril TAB*] 25 mg PO DAILY 05/16/18 [History Confirmed 05/16/18] LoraTADine TAB(NF) [Claritin 10 MG TAB(NF)] 10 mg PO DAILY 05/16/18 [History Confirmed 05/16/18] Losartan TAB* [Cozaar TAB*] 25 mg PO DAILY 05/16/18 [History Confirmed 05/16/18] Metoprolol Succinate XL TAB* [Toprol XL TAB*] 50 mg PO DAILY 05/16/18 [History Confirmed 05/16/18] Simvastatin (NF) [Zocor (NF)] 40 mg PO DAILY 05/16/18 [History Confirmed ] Umeclidin 62.5 MDI(NF) [Incruse ELLIPTA MDI (NF)] 1 puff INH BID 05/16/18 [ History Confirmed 05/16/18] guaiFENesin/CODIEN 100MG-10MG* [Robitussin AC 100Mg-10Mg*] 10 ml PO Q6HR PRN 06/23 [History Confirmed 05/16/18] PMH/Surg Hx/FS Hx/Imm Hx Endocrine/Hematology History: Reports: Hx Anemia - chemo-induced Denies: Hx Diabetes, Hx Systemic Lupus Erythematosus Cardiovascular History: Reports: Hx Angina, Hx Coronary Artery Disease, Hx Hypercholesterolemia, Hx Hypertension - ON MEDS, Hx Myocardial Infarction Denies: Hx Congestive Heart Failure, Hx Pacemaker/ICD, Hx Valvular Heart Disease Comment Only: Other Cardiovascular Problems/Disorders - - Respiratory History: Reports: Hx Asthma, Hx Chronic Obstructive Pulmonary Disease (COPD), Hx Lung Cancer - -chemo, last CT scan was clear, Other Respiratory Problems/Disorders - LUNG CA GI History: Reports: Hx Gastroesophageal Reflux Disease, Hx Irritable Bowel Comment Only: Other GI Disorders - HX PROSTATE CA 1998, LUNG CA 2013 WITH RADIATIONS [place] History: Reports: Other Problems/Disorders - hx prostate ca 1998 Denies: Hx Dialysis, Hx Renal Disease Musculoskeletal History: Reports: Hx Back Problems - disc removal, Other Musculoskeletal History - R knee surgery Denies: Hx Rheumatoid Arthritis Sensory History: Reports: Hx Contacts or Glasses - glasses Denies: Hx Hearing Aid Opthamlomology History: Reports: Hx Contacts or Glasses - glasses Psychiatric History: Denies: Hx Panic Disorder - Cancer History Cancer Type, Location and Year: lung ca dx 2010 radiation and chemo last dose 2010, second round in 2016 ending in april, prostate CA Hx Chemotherapy: No - Surgical History Surgery Procedure, Year, and Place: 1989 lumbar back. 1994 prostate removed r /t ca. 1999 cardiac stent. 01/2018 cardiac stents. knee right,. gall bladder. appendectomy,. bilat cataract, Hx Anesthesia Reactions: No Infectious Disease History: No Infectious Disease History: Denies: Traveled Outside the [place] in Last 30 Days - Family History Known Family History: Positive: Cardiac Disease - Social History Alcohol Use: None Hx Substance Use: No Substance Use Type: Reports: None Hx Tobacco Use: Yes Smoking Status (MU): Former Smoker Type: Cigarettes Amount Used/How Often: 1ppd 40 yrs Length of Time of Smoking/Using Tobacco: 40 YRS Have You Smoked in the Last Year: No Review of Systems Negative: Fever, Chills Negative: Erythema Negative: Sore Throat Positive: Chest Pain - secondary to cough Positive: Shortness Of Breath, Cough - productive with cloudy and thick sputum ( no blood) Positive: Other - slight weight loss and decreased appetite (secondary to chemo) . Negative: Abdominal Pain, Vomiting, Nausea Negative: dysuria, hematuria Negative: Edema Negative: Rash Neurological: Other - denies dizziness All Other Systems Reviewed And Are Negative: Yes Physical Exam - Summary Physical Exam Summary: Constitutional: Well-developed, Well-nourished, Alert. (-) Distressed Skin: Warm, Dry HENT: Normocephalic; Atraumatic Eyes: Conjunctiva normal Neck: Musculoskeletal ROM normal neck. (-) JVD, (-) Stridor, (-) Tracheal deviation Cardio: Rhythm regular, rate normal, Appeared tachypnic; Intact distal pulses; The pedal pulses are 2+ and symmetric. Radial pulses are 2+ and symmetric. (-) Murmur. Pulmonary/Chest wall: Diminished lung sounds. (-) Respiratory distress, (-) Wheezes, (-) Rales Abd: Soft, (-) epigastric tenderness, (-) Distension, (-) Guarding, (-) Rebound Musculoskeletal: (-) Edema Lymph: (-) Cervical adenopathy Neuro: Alert, Oriented x3 Psych: Mood and affect Normal Triage Information Reviewed: Yes Vital Signs On Initial Exam: Initial Vitals Temp Pulse Resp BP Pulse Ox 98.5 F 94 24 157/48 88 05/16/18 11:20 05/16/18 11:20 05/16/18 11:20 05/16/18 11:20 05/16/18 11:20 Vital Signs Reviewed: Yes Diagnostics - Vital Signs Vital Signs Temp Pulse Resp BP Pulse Ox 05/16/18 11:33 72 15 161/60 96 05/16/18 11:20 98.5 F 94 24 157/48 88 - Laboratory Result Diagrams: 05/16/18 13:25 05/16/18 13:25 Lab Statement: Any lab studies that have been ordered have been reviewed, and results considered in the medical decision making process. - Radiology CXR Radiology Interpretation Completed By: Radiologist - 1. THERE IS A SMALL RIGHT BASILAR INFILTRATE WHICH APPEARS UNCHANGED AND A NEW SMALL RIGHT PLEURAL EFFUSION. 2. POSSIBLE SUPERIMPOSED PULMONARY EDEMA, UNCHANGED. ED physician has reviewed this radiology report. - CT CTA Chest CT Interpretation Completed By: Radiologist - Nondiagnostic CT pulmonary angiogram due to suboptimal IV access. If there is persistent clinical concern for pulmonary embolism consider VQ scan for further assessment. Small bilateral dependent pleural effusions increased over the May 11, 2018 CT which may be secondary to cardiogenic pulmonary edema. Advanced emphysema. Reference images 27 and 29 there are 2 adjacent pulmonary nodules measuring up to 0.8 cm maximum dimension at the LEFT upper lobe without significant change compared with the May 11, 2018 PET/CT. ED physician has reviewed this radiology report. - EKG 1524 Cardiac Rate: NL - 82 BPM EKG Rhythm: Sinus Rhythm EKG Interpretation: No STEMI Re-Evaluation - Re-Evaluation First Eval Re-Evaluation Time: 15:09 Comment: Discussed further care with the patient. Course/Dx - Course Assessment/Plan: CXR Negative. Hypoxic. CA pt. PE until proven otherwise. Given productive cough we will cover with IV abx. - Diagnoses Provider Diagnoses: Hypoxia, COPD exacerbation, Symptomatic anemia, Chest pain, unspecified - Physician Notifications Discussed Care of Patient With: Radha Medina Time Discussed With Above Provider: 15:32 Instructed by Provider To: Other - Consulted Dr. Medina who accepts the patient for admission. - Critical Care Time Critical Care Time: 30-74 min - 45 minutes Discharge - Sign-Out/Discharge Documenting (check all that apply): Patient Departure - Admit - Discharge Plan Condition: Stable Disposition: ADMITTED TO [facility] Referrals: Reynaldo Mejias MD [Primary Care Provider] - - Attestation Statements Document Initiated by Scribe: Yes Documenting Scribe: Jose Gudino Provider For Whom Scribe is Documenting (Include Credential): Ortega Rahman MD Scribe Attestation: Jose Manuel, scribed for Ortega Rahman MD on 05/16/18 at 1617.
--- NOTE | 2018-05-16 12:17 | RAD ---
INDICATION: Shortness of breath. COMPARISON: Comparison is made with a prior chest x-ray study from April 22, 2018. TECHNIQUE: A portable view of the chest was obtained. FINDINGS: The heart is within normal limits in size. There is a power port central venous catheter entering on the left side. The catheter tip projects over the right paratracheal region. There is diffuse prominence of the interstitial markings and a small right basilar infiltrate which appears similar to the prior exam. There is also a small right pleural effusion which appears new. IMPRESSION: 1. THERE IS A SMALL RIGHT BASILAR INFILTRATE WHICH APPEARS UNCHANGED AND A NEW SMALL RIGHT PLEURAL EFFUSION. 2. POSSIBLE SUPERIMPOSED PULMONARY EDEMA, UNCHANGED.
--- OUTSIDE RECORDS SUMMARY | 2018-05-16 12:34 | XMS REPORT ---
:1940 External Reference #:[id number] Author Organization [employer] Address [address] [address] [place] [address] Phone [phone] Care Team Providers Name Role Phone Reynaldo Mejias MD Primary Care Physician Unavailable Payers Type Date Identification Numbers Payment Provider Subscriber Commercial Effective: Policy Number: [id number] Mckenna Prog/Todays [employer] 2017 Options PayID: [id number] [address] [address] Attn: [place] [address] Problems Date Description Provider Status Onset: 12/07/2017 Acute subendocardial infarction Epi Carroll MD, SUDHEER , Active FSCAI Onset: 10/23/2015 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 Social History Type Date Description Comments Occupation Currently Working Occupation [employer] ETOH Use Denies alcohol use Smoking Patient is a former smoker Recreational Drug Use Denies Drug Use Daily Caffeine Comsumes on average 1 cup of decaff coffee per day Allergies, Adverse Reactions, Alerts Date Description Reaction Status Severity Comments 04/12/2018 Biaxin active 04/12/2018 Ramipril active 04/12/2018 Bupropion active 10/23/2015 NKDA inactive Medications Medication Date Status Form Strength Qnty SIG Indications Ordering Provider Losartan Potassium 12/04 Active Tablets 25mg take 1 Marcis T. /2017 tablet by Sodums, mouth once SUDHEER PORTILLO, daily [facility] Metoprolol 12/04 Active Tablets ER 50mg 1 by mouth Marcis T. Succinate ER /2018 24HR once daily MD Carroll FACC, FSCAI Simvastatin 12/04 Active Tablets 40mg take 1 Marcis T. tablet by Sodums, mouth at SUDHEER PORTILLO, bedtime [facility] Aspirin 81 Low 12/04 Active Chewtabs 81mg 1 by mouth Epi Samuels Dose /2017 every day Carly, SUDHEER PORTILLO, [facility] Brilinta 12/04 Active Tablets 90mg 180ta 1 tab by Epi Samuels bs mouth Sodums, twice a SUDHEER PORTILLO, day [facility] Nitrostat 12/04 Active Tablets 0.4mg 25tab one sl Epi Samuels Sub s q5min up Sodmegan, to 3 doses SUDHEER PORTILLO, as needed [facility] Esomeprazole Active Capsules 40mg take 1 Unknown Magnesium /0000 DR capsule by mouth every morning Hydrochlorothiazid Active Tablets 25mg take 1 Unknown e /0000 tablet by mouth once daily Oxybutynin Active Tablets 5mg 1 by mouth Unknown Chloride /0000 every day Dicyclomine HCL Active Tablets 20mg 1 tab by Unknown /0000 mouth twice daily Hydroxyzine HCL Active Tablets 10mg 1-2 tabs 8 Unknown /0000 hourly/ no driving after taking med Acetaminophen ER Active Tablets ER 650mg 1 tab by Unknown /0000 mouth q6 hours as needed pain Klor-Con M20 Active Tablets ER 20Meq 1 by mouth Unknown /0000 every day Albuterol Sulfate Active Nebulizer (2.5mg/3M 1 vial via Unknown /0000 L) 0.083% nebulizer 4 times daily as needed Docusate Sodium Active Capsules 100mg 1 tab Unknown /0000 every 12 hours as needed for constipati on Omeprazole Hx Capsules 40mg 1 by mouth Unknown /0000 DR every day Simvastatin Hx Tablets 80mg take one Unknown /0000 tablet by - mouth at 12/06 bedtime Nitrostat Hx Tablets 0.4mg place 1 Unknown /0000 Sub tablet - under the 12/04 tongue if /2017 needed every 5 minutes for marck... Vital Signs Date Vital Result Comment 05/03/2018 Heart Rate 66 /min BP Systolic Sitting 120 mmHg BP Diastolic Sitting 78 mmHg Respiratory Rate 18 /min Body Temperature 97.8 F 04/12/2018 Weight 173.00 lb Heart Rate 80 /min BP Systolic 130 mmHg BP Diastolic 56 mmHg Respiratory Rate 20 /min Body Temperature 96.9 F 12/07/2017 Height 72 inches 6'0" 62 Weight 180.00 lb w/shoes Heart Rate 80 /min BP Systolic Sitting 128 mmHg lue large cuff BP Diastolic Sitting 62 mmHg lue large cuff Respiratory Rate 20 /min BMI (Body Mass Index) 24.4 kg/m2 Ejection Fraction 79% w/strs stress test 11/01/13 10/23/2015 Height 72 inches 62 Weight 214.00 lb Heart Rate 78 /min BP Systolic Sitting 122 mmHg BP Diastolic Sitting 70 mmHg Pain Level 2 BMI (Body Mass Index) 29.0 kg/m2 Results Description No Information Procedures Date CPT Code Description Status 04/22/2018 60282 Fluoroscopic Guidance For Cent Completed 04/22/2018 85343 Insertion Peripherally Central Venous Catheter W/ Sub Completed Port >5Yrs 12/07/2017 09205 EKG Tracing & Interpretation Completed 12/04/2017 00723 EKG, Interpretation Only Completed 12/03/2017 86459 Left Heart Cath. Incl S/I Coronaries, Angio S/I V Gram Completed If Done 12/03/2017 92357 Treadmill Interp/Report Only Completed 12/03/2017 95934 Stress Test Supervsn W/Out I/R Completed 12/03/2017 97904 EKG, Interpretation Only Completed 12/03/2017 54629 Percutaneous Transcatheter Placement Of Intracoronary Completed Stent 06/03/2017 15176 EKG, Interpretation Only Completed 02/18/2017 57715 Diffusing Capacity Completed 02/18/2017 55178 Spirometry Incl Graphic Record Completed 11/01/2014 54611 Treadmill Interp/Report Only Completed 11/01/2014 55034 Stress Test Supervsn W/Out I/R Completed 01/21/2010 12839 Treadmill Interp/Report Only Completed 01/21/2010 37794 Stress Test Supervsn W/Out I/R Completed Encounters Type Date Location Provider CPT E/M Dx Office Visit 04/12/2018 [facility] [place] [address] C34.90 9:45a Enterprise Resource Analyst Office Visit 12/07/2017 [facility] Epi Carroll, 00920 I21.4 2:30p Enterprise Resource Analyst [facility] MD, FACC, FSCAI Office Visit 12/04/2017 [facility], ALEAH Garcia 50685 R07.2 12:09p Hospitalists I25.10 I10 E78.00 Office Visit 12/04/2017 2:34p [facility] Saima Carrington M.D. 02284 I21.4 [facility] I25.10 Office Visit 12/03/2017 12:09p [facility] ALEAH Garcia 95254 R07.2 Hospitalists I25.10 I10 E78.00 Office Visit 12/03/2017 2:19p [facility] Saima Carrington M.D. 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 24447 786.50 Assoc,pc Hospitalists 414.00 272.4 401.9 Office Visit 11/30/2012 11:57a [facility], Rajan Wagner M.D. 76927 558.9 Hospitalists 401.9 414.00 272.2 Office Visit 11/29/2012 11:56a [facility], Rajan Wagner M.D. 03002 558.9 Hospitalists 401.9 414.00 272.2 Office Visit 11/28/2012 11:56a [facility], Chuy Voss, 76039 558.9 Hospitalists N.P. 401.9 414.00 272.2 Office Visit 01/21/2010 1:15a [facility], [place], [address]01 786.50 Hospitalists MJose Francisco Office Visit 01/20/2010 1:30a [facility], [place], [address]11 786.50 Hospitalists Paz 414.9 Office Visit 01/20/2010 12:15a [facility] Saskia Maravilla, 35074 786.50 Ass, Hospitalists MJose Francisco Plan of Care 05/03/2018 - Mary Grace Beck, NPC34.90 Malignant neoplasm of unsp part of unsp bronchus or lungFollow up:As siorioF52.02 Encounter for removal of sutures
[2018-05-16] MEDS ORDERED: Cefepime(*) 2 GM in NS 0.9% 50 ML* 50 ML IVPB ONE (12:38)
[2018-05-16] MEDS ORDERED: Levofloxacin 750 MG IVPREMIX(* 750 MG/150 ML BAG IVPB ONE (12:38)
[2018-05-16] MEDS ORDERED: NS 0.9% 1000 ML*IV.FLUID IV ONE (12:38)
[2018-05-16 13:37] LABS: ABS Basophils 0 10^3/ul (0-0.2); ABS Eosinophils 0 10^3/ul (0-0.6); ABS Lymphocytes 0.2 10^3/ul (1.0-4.8); ABS Monocytes 0.9 10^3/ul (0-0.8); ABS Neutrophils 2.5 10^3/ul (1.5-7.7); ABS Nucleated RBC 0 10^3/ul; Eosinophil % 1.2 % (0-6); Hematocrit 23 % (42-52); Hemoglobin 7.3 g/dl (14.0-18.0); Lymphocyte % 5.4 % (25-47); Mean Corpuscular HGB Conc 33 g/dl (31-36); Mean Corpuscular Hemoglobin 29 pg (27-31); Mean Corpuscular Volume 90 fL (80-94); Nucleated Red Blood Cells % 0.1; Platelet Count 163 10^3/ul (150-450); Red Cell Distribution Width 22 % (10.5-15); White Blood Count 3.6 10^3/ul (3.5-10.8)
[2018-05-16] MEDS ORDERED: methylPREDNISolone 125 MG* 2 ML VIAL IV ONE (13:38)
[2018-05-16] MEDS ORDERED: Albuterol/Ipratropium NEB.SOL* Albuterol 2.5 MG/Ipratropium 0.5 MG 3 ML INH ONE (13:38)
[2018-05-16 13:48] LABS: EGFR Non-African American 69.1 (>60)
[2018-05-16 13:54] LABS: INR 1.08 (0.77-1.02)
[2018-05-16] MEDS ORDERED: Iodixanol* (CONTRAST) 320 MG/ML 100 ML SDV IV ONE (14:07)
[2018-05-16] MEDS ORDERED: Aspirin 81 mg CHEW TAB* 81 MG TAB.CHEW PO ONE (15:11)
[2018-05-16] MEDS ORDERED: Nitroglycerin TAB 0.4 MG* 0.4 MG TAB SL ONE (15:11)
--- NOTE | 2018-05-16 15:31 | RAD ---
INDICATION: Hypoxia, cough for one month. History of lung carcinoma. COMPARISON: May 16, 2018 chest radiograph and May 11, 2018 PET/CT. TECHNIQUE: Multidetector CT images were obtained from the lung apices to the upper abdomen with 35.6 mL Visipaque 320 IV contrast. Pulmonary angiogram protocol. Multiplanar reformation including with maximum intensity projection. REPORT: The CT pulmonary angiogram is nondiagnostic due to suboptimal contrast opacification of the pulmonary arteries due to encountered pressure limit from the limited IV access available. No gross evidence for pulmonary embolism from the main to the lobar pulmonary arteries with more distal assessment limited due to poor opacification of pulmonary arteries. Advanced emphysema. Small bilateral dependent pleural effusions. Prominent peripheral intralobular septa. Reference images 27 and 29 there are 2 adjacent pulmonary nodules measuring up to 0.8 cm maximum dimension at the LEFT upper lobe without significant change. Negative for pneumothorax. Negative for cardiomegaly or pericardial effusion. Aortic valve calcification and coronary artery calcification noted. Tip of LEFT chest port at level of the RIGHT atrium. Images through the upper abdomen are remarkable for a large parapelvic cyst at the upper pole of the LEFT kidney without change compared with the February 17, 2018 CT exam. Negative for suspicious thoracic osseous lesions. IMPRESSION: #. Nondiagnostic CT pulmonary angiogram due to suboptimal IV access. If there is persistent clinical concern for pulmonary embolism consider VQ scan for further assessment. #. Small bilateral dependent pleural effusions increased over the May 11, 2018 CT which may be secondary to cardiogenic pulmonary edema. #. Advanced emphysema. #. Reference images 27 and 29 there are 2 adjacent pulmonary nodules measuring up to 0.8 cm maximum dimension at the LEFT upper lobe without significant change compared with the May 11, 2018 PET/CT.
[2018-05-16] MEDS ORDERED: NS 0.9% 1000 ML* 1,000 ML IV ONE (15:51)
[2018-05-16] MEDS ORDERED: Azithromycin TAB* 250 MG PO SCH (16:00)
--- NOTE | 2018-05-16 16:00 | ADMNOTE ---
Admission Chief Complaint: progressive SOB History of Present Illness: 78 yo M w PMH of CAD sp MYESHA to LAD in 12/2017, COPD, lung CA on gemcitabine persenting with progressive SOB and developed chest pain in ER. Ed reports progressive SOB over the last month. He has been complaining of this in the office, but did not desaturate while walking, and was pending a referral to Dr. Cedillo. He reports that his 's caregiver came today and did not like how he looked and so drove him to the ER. On arrival he was hypoxic with an O2 sat of 86% on RA. This improved to the mid90s on 3L. His labs are notable for a very mildly elevated BNP and significant anemia with a Hb of 7.3. He denies obvious blood in stool. He went to CT scan for a CTA which was nondiagnostic for PE but did show his chronic emphysema and small bilateral pleural effusions. upon I turned down his O2 to see his levels. After 5 mins he dropped to 86% and developed dull substernal chest pressure again. This resolved with starting O2 back up. He denies fevers or productive cough. His last chemo was 05/06. He does report improvement in his breathing after receiving solumedrol in the ER. He has not yet seen Dr. Cedillo. Allergies/Medications Medication: Home Medications Medication Instructions Recorded Confirmed Type Aspirin EC TAB* [Ecotrin EC Low 81 mg PO DAILY 11/28/12 05/16/18 History Dose 81 MG*] Oxybutynin TAB* [Ditropan TAB*] 5 mg PO QAM 11/28/12 05/16/18 History hydrOXYzine HCL TAB* [Atarax 10 MG 10 mg PO QAM 12/02/17 05/16/18 History TAB*] Cefuroxime 500 MG(NF) 500 mg PO BID 05/16/18 05/16/18 History Clopidogrel TAB* [Plavix TAB*] 75 mg PO DAILY 05/16/18 05/16/18 History Dicyclomine CAP* [Bentyl CAP*] 40 mg PO DAILY 05/16/18 05/16/18 History Esomeprazole(NF) [NexIUM(NF)] 40 mg PO DAILY 05/16/18 05/16/18 History Fluticasone-Salmeterol 250-50* 1 puff INH BID 05/16/18 05/16/18 History [Advair Diskus 250-50*] Hydrochlorothiazide TAB* 25 mg PO DAILY 05/16/18 05/16/18 History [Hydrodiuril TAB*] LoraTADine TAB(NF) [Claritin 10 MG 10 mg PO DAILY 05/16/18 05/16/18 History TAB(NF)] Losartan TAB* [Cozaar TAB*] 25 mg PO DAILY 05/16/18 05/16/18 History Metoprolol Succinate XL TAB* 50 mg PO DAILY 05/16/18 05/16/18 History [Toprol XL TAB*] Simvastatin (NF) [Zocor (NF)] 40 mg PO DAILY 05/16/18 05/16/18 History Umeclidin 62.5 MDI(NF) [Incruse 1 puff INH BID 05/16/18 05/16/18 History ELLIPTA MDI (NF)] guaiFENesin/CODIEN 100MG-10MG* 10 ml PO Q6HR PRN 05/16/18 05/16/18 History [Robitussin AC 100Mg-10Mg*] Allergies/Adverse Reactions: Allergies Allergy/AdvReac Type Severity Reaction Status Date / Time bupropion Allergy Unknown Verified 05/16/18 11:37 Reaction Details clarithromycin [From Biaxin] Allergy Headache Verified 05/16/18 11:37 ramipril Allergy Unknown Verified 05/16/18 11:37 Reaction Details History - Past Medical History Other History: CAD sp stent in 1999 and repeat stent 12/2017. COPD. PVD. hyperlip. htn. lung CA. prostate CA 1994, sp prostatectomy. arthritis. sleep apnea. cholecystectomy. c-spine decompression - Family History Other Family History: prostate CA. DM. heart failure Review of Systems - Review of Systems Constitutional Symptoms: Positive: Fatigue Dermatology: Positive: Normal HEENT: Positive: Normal Eyes: Positive: Normal Thyroid: Positive: Normal Pulmonary: Positive: Cough, Shortness of Breath Cardiology: Positive: Chest Pain, Shortness of Breath Gastroenterology: Positive: Normal Genital - Urinary: Positive: Normal Musculoskeletal: Positive: Arthritis, Low Back Pain Endocrinology: Positive: Normal Hematologic/Lymphatic: Positive: Easy Brusing Neurology: Positive: Normal Psychiatry: Positive: Normal Physical Exam - Physical Exam Physical Examination: Vital Signs Temp Pulse Resp BP Pulse Ox 98.1 F 78 11 140/53 94 05/16/18 14:45 05/16/18 15:04 05/16/18 15:04 05/16/18 14:03 05/16/18 15:04 lying flat in bed in nad perr eomi op dry dec bs/crackles r base no wheeze s1 s2 nl soft nt +Bs trace LE edema bl port clean A+O x 3, grossly nonfocal Results - Lab Results Lab Results: 05/16/18 05/16/18 05/16/18 13:25 13:25 13:25 WBC 3.6 RBC 2.50 L Hgb 7.3 L Hct 23 L MCV 90 MCH 29 MCHC 33 RDW 22 H Plt Count 163 MPV 8.0 Neut % (Auto) 68.5 Lymph % (Auto) 5.4 L [place] % (Auto) 24.7 H Eos % (Auto) 1.2 Baso % (Auto) 0.2 Absolute Neuts (auto) 2.5 Absolute Lymphs (auto) 0.2 L Absolute Monos (auto) 0.9 H Absolute Eos (auto) 0 Absolute Basos (auto) 0 Absolute Nucleated RBC 0 Nucleated RBC % 0.1 INR (Anticoag Therapy) 1.08 H APTT 37.3 H Sodium 136 Potassium 3.6 Chloride 105 Carbon Dioxide 26 Anion Gap 5 BUN 23 Creatinine 1.04 Est GFR ( Amer) 83.6 Est GFR (Non-Af Amer) 69.1 BUN/Creatinine Ratio 22.1 H Glucose 93 Lactic Acid Calcium 8.0 L Total Bilirubin 0.70 AST 27 ALT 31 Alkaline Phosphatase 64 Troponin I 0.01 B-Natriuretic Peptide Total Protein 5.5 L Albumin 2.8 L Globulin 2.7 Albumin/Globulin Ratio 1.0 Blood Type Antibody Screen Crossmatch 05/16/18 05/16/18 05/16/18 13:25 13:25 13:25 WBC RBC Hgb Hct MCV MCH MCHC RDW Plt Count MPV Neut % (Auto) Lymph % (Auto) [place] % (Auto) Eos % (Auto) Baso % (Auto) Absolute Neuts (auto) Absolute Lymphs (auto) Absolute Monos (auto) Absolute Eos (auto) Absolute Basos (auto) Absolute Nucleated RBC Nucleated RBC % INR (Anticoag Therapy) APTT Sodium Potassium Chloride Carbon Dioxide Anion Gap BUN Creatinine Est GFR ( Amer) Est GFR (Non-Af Amer) BUN/Creatinine Ratio Glucose Lactic Acid 0.7 Calcium Total Bilirubin AST ALT Alkaline Phosphatase Troponin I B-Natriuretic Peptide 167 H Total Protein Albumin Globulin Albumin/Globulin Ratio Blood Type O Positive Antibody Screen Negative Crossmatch See Detail Assessment and Plan Impression: 78 yo M w PMH of CAD sp stent, CHF, and lung CA sp gemcitabine p/w progressive SOB and chest pain in ER. DDx included progressive COPD exacerbated by profound anemia, PE or SD (less likely given negative troponin and longevity of symptoms). -Admit to tele -steroids for likely component of COPD exacerbation + azithro -transfuse 1 u PRBC -stool guaiac, though suspect anemia from chemotherapy -serial troponin, telemetry, echo in am -gentle hydration as appears dry clinically -V/Q scan stat -cont advair -if no quick improvement will get pulmonary consult -cont bblocker, arb, ASA, Plavix, PRN nitro, cardiac diet -supplemental O2 -lovenox DVT prophylaxis -full code, will readdress tomorrow
[2018-05-16 16:25] LABS: Urine Appearance Clear; Urine Blood 3+ (Negative); Urine Color Yellow; Urine Ketones Negative (Negative); Urine Protein Negative (Negative); Urine Red Blood Cell 3+(>10/hpf) (Absent); Urine Specific Gravity 1.019 (1.010-1.030); Urine Urobilinogen Negative (Negative); Urine White Blood Cell Trace(0-5/hpf) (Absent)
[2018-05-16] MEDS: methylPREDNISolone SOD 40 MG* 1 ML VIAL IV SCH (17:28)
[2018-05-16] MEDS: Enoxaparin(*) 40 MG/0.4 ML SYR SUBCUT SCH (17:28)
[2018-05-16] MEDS: guaiFENesin/CODIEN 100MG-10MG* 5 ML UDC PO PRN (19:27)
[2018-05-16] MEDS: Mometasone/Formoter 200/5 MDI INH SCH (19:52)
--- NOTE | 2018-05-16 20:04 | RAD ---
EXAM: NM Lung Perfusion and Ventilation Scan CLINICAL HISTORY: 78 years old, male; Signs and symptoms; Shortness of breath; Patient HX: Non diagnostic CT same day due to inadequate iv. Lung ca, prostate ca, . SOB with exertion, ; additional info: Unable to obtain CT TECHNIQUE: Ventilation imaging was performed following inhalation of 10.63 mCi Xenon-133. Perfusion imaging was performed following intravenous injection of 6.28 mCi Tc 99m-labeled MAA particles. COMPARISON: OT - CXR PORTAP CHEST AP PORTABLE 04/22/2018 10:26 AM FINDINGS: Ventilation: Homogeneous radiotracer distribution on initial breath and equilibrium ventilation phase with smooth radiotracer elimination on washout with no air-trapping. Perfusion: Heterogeneous distribution of radiotracer on perfusion likely due to underlying lung disease with with subsegmental perfusion defect involving lateral basal segment right lower lobe. No additional perfusion defects. IMPRESSION: Very low probability for PE based on PIOPED 2 criteria.
[2018-05-16] MEDS ORDERED: LORazepam TAB(*) 0.5 MG PO ONE (21:50)
[2018-05-16] MEDS: Dicyclomine CAP* 10 MG PO SCH (22:01)
[2018-05-17] MEDS: methylPREDNISolone SOD 40 MG* 1 ML VIAL IV SCH ×2 (03:45→17:15)
[2018-05-17] MEDS: guaiFENesin/CODIEN 100MG-10MG* 5 ML UDC PO PRN ×3 (04:07→22:25)
[2018-05-17 07:34] LABS: ABS Basophils 0 10^3/ul (0-0.2); ABS Eosinophils 0 10^3/ul (0-0.6); ABS Lymphocytes 0.1 10^3/ul (1.0-4.8); ABS Monocytes 0.2 10^3/ul (0-0.8); ABS Neutrophils 2.9 10^3/ul (1.5-7.7); ABS Nucleated RBC 0 10^3/ul; Eosinophil % 0 % (0-6); Hematocrit 26 % (42-52); Hemoglobin 8.4 g/dl (14.0-18.0); Lymphocyte % 3.9 % (25-47); Mean Corpuscular HGB Conc 33 g/dl (31-36); Mean Corpuscular Hemoglobin 29 pg (27-31); Mean Corpuscular Volume 88 fL (80-94); Nucleated Red Blood Cells % 0; Platelet Count 186 10^3/ul (150-450); Red Cell Distribution Width 20 % (10.5-15); White Blood Count 3.2 10^3/ul (3.5-10.8)
[2018-05-17 07:52] LABS: EGFR Non-African American 73.1 (>60)
--- NOTE | 2018-05-17 08:35 | PN ---
Progress Note - Progress Note Date of Service: 05/17/18 SOAP: Subjective: []Admitted last night with increased SOB and wheezing felt 2/[address] /c contrast inj. too slow to eval. completely for PE, VQ scan last night with low probability. Feeling better since yesterday though again has mid-sternal/epigastric 'chest pain', however denies similarity to prior heart attack and states, "Might just be gas." Coughing and producing 'alvarado' sputum. SOB improved. Likes vicks vapor nasal 'inhaler' to help with congestion. Has been constipated lately, though denies abd. discomfort. No pain. Medications: Azithromycin (Zithromax Tab*) 500 mg PO DAILY [facility] Stop: 05/19/18 09:01 Cetirizine HCl (Zyrtec*) 10 mg PO DAILY [facility] Clopidogrel Bisulfate (Plavix Tab*) 75 mg PO DAILY [facility] Dicyclomine HCl (Bentyl Cap*) 20 mg PO BID [facility] Last Admin: 05/16/18 22:01 Dose: 20 mg Enoxaparin Sodium (Lovenox(*)) 40 mg SUBCUT Q24H [facility] Last Admin: 05/16/18 17:28 Dose: 40 mg Guaifenesin/Codeine Phosphate (Robitussin Ac 100mg-10mg*) 10 ml PO Q6HR PRN PRN Reason: COUGH Last Admin: 05/17/18 04:07 Dose: 10 ml Heparin Sodium (Porcine) (Heparin Flush Port (Ivad)) 5 ml FLUSH DAILY [facility]; Protocol Losartan Potassium (Cozaar Tab*) 25 mg PO DAILY [facility] Methylprednisolone Sodium Succinate (Solu-Medrol 40 Mg) 40 mg IV Q12H [facility] Last Admin: 05/17/18 03:45 Dose: 40 mg Metoprolol Succinate (Toprol Xl Tab*) 50 mg PO DAILY [facility] Mometasone Furoate/Formoterol Fumar (Dulera 200/5 Mdi*) 2 puff INH BID [facility] Last Admin: 05/16/18 19:52 Dose: 2 puff Oxybutynin Chloride (Ditropan Tab*) 5 mg PO QAM [facility] Pantoprazole Sodium (Protonix Tab (Nf)) 40 mg PO DAILY [facility]; Protocol Umeclidinium [place] (Incruse Ellipta Mdi (Nf)) 1 inh INH DAILY [facility] Objective: [] Vital Signs Temp Pulse Resp BP Pulse Ox 97.4 F 73 24 148/42 92 05/17/18 03:47 05/17/18 03:47 05/17/18 03:47 05/17/18 03:47 05/17/18 03:47 A&Ox3, EOMI, IZAGUIRRE, involved in plan of care and communicating clearly HRR, S1S2 LS clear bilat. without wheeze or rhonchi, resp. even and non-labored +BSx4, abd. soft and non-tender +PP=bilat., trace non-pitting edema Laboratory Results - last 24 hr 05/16/18 05/16/18 05/16/18 13:25 13:25 13:25 WBC 3.6 RBC 2.50 L Hgb 7.3 L Hct 23 L MCV 90 MCH 29 MCHC 33 RDW 22 H Plt Count 163 MPV 8.0 Neut % (Auto) 68.5 Lymph % (Auto) 5.4 L Benzie % (Auto) 24.7 H Eos % (Auto) 1.2 Baso % (Auto) 0.2 Absolute Neuts (auto) 2.5 Absolute Lymphs (auto) 0.2 L Absolute Monos (auto) 0.9 H Absolute Eos (auto) 0 Absolute Basos (auto) 0 Absolute Nucleated RBC 0 Nucleated RBC % 0.1 INR (Anticoag Therapy) 1.08 H APTT 37.3 H Sodium 136 Potassium 3.6 Chloride 105 Carbon Dioxide 26 Anion Gap 5 BUN 23 Creatinine 1.04 Est GFR ( Amer) 83.6 Est GFR (Non-Af Amer) 69.1 BUN/Creatinine Ratio 22.1 H Glucose 93 Lactic Acid 0.7 Calcium 8.0 L Total Bilirubin 0.70 AST 27 ALT 31 Alkaline Phosphatase 64 Troponin I 0.01 B-Natriuretic Peptide 167 H Total Protein 5.5 L Albumin 2.8 L Globulin 2.7 Albumin/Globulin Ratio 1.0 Urine Color Urine Appearance Urine pH Ur Specific [place] Urine Protein Urine Ketones Urine Blood Urine Nitrate Urine Bilirubin Urine Urobilinogen Ur Leukocyte Esterase Urine WBC (Auto) Urine RBC (Auto) Ur Squamous Epith Cells Urine Bacteria Urine Glucose Blood Type O positive Antibody Screen Crossmatch 05/17/18 05/17/18 07:20 07:20 WBC 3.2 L RBC 2.90 L Hgb 8.4 L Hct 26 L MCV 88 MCH 29 MCHC 33 RDW 20 H Plt Count 186 MPV 8.0 Neut % (Auto) 91.1 H Lymph % (Auto) 3.9 L Benzie % (Auto) 4.8 Eos % (Auto) 0 Baso % (Auto) 0.2 Absolute Neuts (auto) 2.9 Absolute Lymphs (auto) 0.1 L Absolute Monos (auto) 0.2 Absolute Eos (auto) 0 Absolute Basos (auto) 0 Absolute Nucleated RBC 0 Nucleated RBC % 0 INR (Anticoag Therapy) APTT Sodium 136 Potassium 3.7 Chloride 104 Carbon Dioxide 25 Anion Gap 7 BUN 23 Creatinine 0.99 Est GFR ( Amer) 88.5 Est GFR (Non-Af Amer) 73.1 BUN/Creatinine Ratio 23.2 H Glucose 154 H Lactic Acid Calcium 8.1 L Total Bilirubin 0.70 AST 22 ALT 26 Alkaline Phosphatase 65 Troponin I B-Natriuretic Peptide Total Protein 5.5 L Albumin 2.7 L Globulin 2.8 Albumin/Globulin Ratio 1.0 Urine Color Urine Appearance Urine pH Ur Specific [place] Urine Protein Urine Ketones Urine Blood Urine Nitrate Urine Bilirubin Urine Urobilinogen Ur Leukocyte Esterase Urine WBC (Auto) Urine RBC (Auto) Ur Squamous Epith Cells Urine Bacteria Urine Glucose Blood Type Antibody Screen Crossmatch Assessment: []78 yo male with advanced lung cancer s/p C4 Gemcitabine admitted with COPD exacerbation improved with current medical management. Plan: []1. Obtain sputum culture 2. Trial viscous lidocaine and mylanta, if marked improvement start Famotidine PO daily 3. Cont. current nebs and steroids 4. Check amb. O2 as may need at home. Dispo: inpt. for resp. management with goal of home tomorrow
[2018-05-17] MEDS: Dicyclomine CAP* 10 MG PO SCH ×2 (08:39→20:41)
[2018-05-17] MEDS: CMC: Pantoprazole TAB (NF) 40 MG TAB PO SCH (08:40)
[2018-05-17] MEDS: Oxybutynin TAB* 5 MG PO SCH (08:40)
[2018-05-17] MEDS: Azithromycin TAB* 250 MG PO SCH (08:40)
[2018-05-17] MEDS: Cetirizine* 10 MG TAB PO SCH (08:40)
[2018-05-17] MEDS: Clopidogrel TAB* 75 MG PO SCH (08:40)
[2018-05-17] MEDS: Losartan TAB* 25 MG PO SCH (08:40)
[2018-05-17] MEDS: Metoprolol Succinate XL TAB* 50 MG PO SCH (08:40)
[2018-05-17] MEDS: UMECLIDIN MDI INH SCH (08:42)
[2018-05-17] MEDS: Mometasone/Formoter 200/5 MDI INH SCH ×2 (08:43→20:02)
[2018-05-17] MEDS ORDERED: Al Hydrox/Mg Hydrox/Simet LIQ* 30 ML UDC PO ONE (09:48)
[2018-05-17] MEDS ORDERED: Lidocaine 2% VISCOUS* 15 ML UDC PO ONE (09:48)
--- NOTE | 2018-05-17 11:32 | ECHO ---
Patient: VERNELL PATEL [facility] Rec#: [id number] : 1940 Date: 05/17/2018 Age: 78y Height: 178 cm / 70.1 in Weight: 78 kg / 171.9 lbs Sex: M BSA: 1.96 Room#: [facility] Admit Date#: 05/16/2018 Type: Inpatient Referring: Nakia Rdz Reading: Sincere Gonzales MD Clinic Scheduler: Mine Dupree,CECILIACS,RDMS CC: Reynaldo Mejias MD Transthoracic Echocardiogram Indication: CP BP: 148/42 HR: 64 Rhythm: NSR Findings History: CAD, PCI, HTN, HLD, COPD, lung cancer, chemotherapy Technical Comments: The study quality is fair. The study is technically limited due to the patient's history of COPD. Left Ventricle: The left ventricular chamber size is normal. Mild concentric left ventricular hypertrophy is observed. Global left ventricular wall motion and contractility are within normal limits. There is normal left ventricular systolic function. The estimated ejection fraction is 55-60%. There is an E to A reversal in the mitral valve flow pattern suggestive of diastolic dysfunction. Left Atrium: The left atrial chamber size is normal. Right Ventricle: The right ventricular chamber size and systolic function are within normal limits. Right Atrium: The right atrium is slightly dilated. Aortic Valve: The aortic valve is trileaflet. The aortic valve leaflets are moderately thickened. Systolic excursion of the aortic valve cusps is reduced. There is trace to mild aortic regurgitation. There is moderate aortic stenosis. The mean gradient of the aortic valve is 17 mmHg. The aortic valve area, by peak velocities, is calculated at 1 cm2. Mitral Valve: The mitral valve leaflets are mildly thickened. There is no evidence of mitral regurgitation. There is no evidence of mitral stenosis. Tricuspid Valve: The tricuspid valve leaflets are normal. There is trace tricuspid regurgitation. Unable to estimate the right ventricular systolic pressure. Pulmonic Valve: The pulmonic valve structure is not well visualized. There is no evidence of pulmonic regurgitation. Pericardium: There is no significant pericardial effusion. Aorta: There is no dilatation of the ascending aorta. The aortic arch is not well visualized. There is mild dilatation of the aortic root. Pulmonary Artery: The main pulmonary artery is not well visualized. Venous: The inferior vena cava appears normal in size. There is a greater than 50% respiratory change in the inferior vena cava dimension. Summary: There was not any prior study for comparison. Conclusions Mild concentric left ventricular hypertrophy is observed. Global left ventricular wall motion and contractility are within normal limits. The estimated ejection fraction is 55-60%. The right ventricular chamber size and systolic function are within normal limits. Systolic excursion of the aortic valve cusps is reduced. There is moderate aortic stenosis. The mean gradient of the aortic valve is 17 mmHg. There is trace to mild aortic regurgitation. There is no evidence of mitral regurgitation. There is trace tricuspid regurgitation. Unable to estimate the right ventricular systolic pressure. There is no significant pericardial effusion. Measurements Name Value Normal Range RVIDd (AP) 2D 3 cm (0.9 - 2.6) RVDdMajor (2D) 3.4 cm (2.2 - 4.4) RAd ISD 4CH 5 cm (3.4 - 4.9) RA (A4C)W 4.5 cm (2.9 - 4.6) IVSd (2D) 1.3 cm (0.6 - 1) LVPWd (2D) 1.2 cm (0.6 - 1) LVIDd (2D) 4 cm (3.6 - 5.4) LVIDs (2D) 3.7 cm - LV FS (2D) 8 % (25 - 45) Aortic Annulus 2.4 cm (1.4 - 2.6) Ao root diameter (2D) 3.7 cm (2.1 - 3.5) Ascending Ao 2.8 cm (2.1 - 3.4) LA dimension (AP) 2D 3.5 cm (2.3 - 3.8) LAd ISD 4CH 4.7 cm (2.9 - 5.3) LA ISD 4CH W 4.3 cm (2.5 - 4.5) Name Value Normal Range LA ESV BP (A/L) index 26 ml/m2 - Name Value Normal Range MV E-wave Vmax 0.9 m/sec - MV deceleration time 203 msec - MV A-wave Vmax 1 m/sec - MV E:A ratio 0.9 ratio - LV septal e' Vmax 0.09 m/sec - LV lateral e' Vmax 0.1 m/sec - LV E:e' septal ratio 10 ratio - LV E:e' lateral ratio 9 ratio - Name Value Normal Range AV Vmax 3 m/sec - AV VTI 80 cm - AV peak gradient 36 mmHg - AV mean gradient 17 mmHg - LVOT diameter 2.3 cm - LVOT Vmax 0.7 m/sec - LVOT VTI 13 cm - LVOT peak gradient 2 mmHg - LVOT mean gradient 1 mmHg - DOI (VTI) 0.2 ratio - NABIL (continuity Vmax) 1 cm2 - NABIL (continuity VTI) 0.7 cm2 - Name Value Normal Range RAP 8 mmHg - IVC diameter 1.8 cm - Name Value Normal Range PV Vmax 0.6 m/sec - PV peak gradient 1.4 mmHg -
[2018-05-17] MEDS ORDERED: Albuterol/Ipratropium NEB.SOL* Albuterol 2.5 MG/Ipratropium 0.5 MG 3 ML INH SCH (12:00)
[2018-05-17] MEDS: Albuterol/Ipratropium NEB.SOL* Albuterol 2.5 MG/Ipratropium 0.5 MG 3 ML INH PRN (13:44)
[2018-05-17] MEDS: Enoxaparin(*) 40 MG/0.4 ML SYR SUBCUT SCH (17:15)
[2018-05-18] MEDS: methylPREDNISolone SOD 40 MG* 1 ML VIAL IV SCH ×2 (03:42→16:05)
[2018-05-18] MEDS: guaiFENesin/CODIEN 100MG-10MG* 5 ML UDC PO PRN ×3 (05:27→22:05)
[2018-05-18] MEDS: UMECLIDIN MDI INH SCH (07:54)
[2018-05-18] MEDS: Mometasone/Formoter 200/5 MDI INH SCH ×2 (07:55→19:40)
[2018-05-18] MEDS ORDERED: Azithromycin TAB* 250 MG PO SCH (09:00)
[2018-05-18] MEDS: CMC: Pantoprazole TAB (NF) 40 MG TAB PO SCH (09:04)
[2018-05-18] MEDS: Cetirizine* 10 MG TAB PO SCH (09:05)
[2018-05-18] MEDS: Azithromycin TAB* 250 MG PO SCH (09:05)
[2018-05-18] MEDS: Oxybutynin TAB* 5 MG PO SCH (09:05)
[2018-05-18] MEDS: Metoprolol Succinate XL TAB* 50 MG PO SCH (09:05)
[2018-05-18] MEDS: Clopidogrel TAB* 75 MG PO SCH (09:05)
[2018-05-18] MEDS: Dicyclomine CAP* 10 MG PO SCH ×2 (09:06→22:05)
[2018-05-18] MEDS: Losartan TAB* 25 MG PO SCH (09:06)
--- NOTE | 2018-05-18 10:12 | PN ---
Progress Note - Progress Note Date of Service: 05/18/18 SOAP: Subjective: []Bad night last night. Didn't sleep well. Feels worse again and breathing is a lot harder. Getting winded with minimal activity (such as standing at bedside to urinate). Gets chest pain around chest with SOB, but again, not like heart attack. Denies further reflux symptoms but has been constipated and requests miralax. Medications: Albuterol/Ipratropium (Duoneb (Albuterol 2.5 Mg/Ipratropium 0.5 Mg)) 1 neb INH Q4H PRN PRN Reason: SOB/WHEEZING Last Admin: 05/17/18 13:44 Dose: 1 neb Azithromycin (Zithromax Tab*) 500 mg PO DAILY COUNT INCLUDES [facility] Stop: 05/19/18 09:01 Last Admin: 05/18/18 09:05 Dose: 500 mg Cetirizine HCl (Zyrtec*) 10 mg PO DAILY COUNT INCLUDES [facility] Last Admin: 05/18/18 09:05 Dose: 10 mg Clopidogrel Bisulfate (Plavix Tab*) 75 mg PO DAILY COUNT [facility]CLUDES [facility] Last Admin: 05/18/18 09:05 Dose: 75 mg Dicyclomine HCl (Bentyl Cap*) 20 mg PO BID COUNT INCLUDES THE [facility] Last Admin: 05/18/18 09:06 Dose: 20 mg Enoxaparin Sodium (Lovenox(*)) 40 mg SUBCUT Q24H COUNT INCLUDES THE [facility] Last Admin: 05/17/18 17:15 Dose: 40 mg Guaifenesin/Codeine Phosphate (Robitussin Ac 100mg-10mg*) 10 ml PO Q6HR PRN PRN Reason: COUGH Last Admin: 05/18/18 05:27 Dose: 10 ml Heparin Sodium (Porcine) (Heparin Flush Port (Ivad)) 5 ml FLUSH DAILY [facility]CLUD[facility]; Protocol Last Admin: 05/18/18 09:04 Dose: 5 ml Losartan Potassium (Cozaar Tab*) 25 mg PO DAILY COUNT [facility]CLUD[facility] Last Admin: 05/18/18 09:06 Dose: 25 mg Methylprednisolone Sodium Succinate (Solu-Medrol 40 Mg) 40 mg IV Q12H COUNT INCLUDES [facility] Last Admin: 05/18/18 03:42 Dose: 40 mg Metoprolol Succinate (Toprol Xl Tab*) 50 mg PO DAILY COUNT [facility]CLUDES [facility] Last Admin: 05/18/18 09:05 Dose: 50 mg Mometasone Furoate/Formoterol Fumar (Dulera 200/5 Mdi*) 2 puff INH BID [facility] Last Admin: 05/18/18 07:55 Dose: 2 puff Oxybutynin Chloride (Ditropan Tab*) 5 mg PO QAM [facility] Last Admin: 05/18/18 09:05 Dose: 5 mg Pantoprazole Sodium (Protonix Tab (Nf)) 40 mg PO DAILY [facility]; Protocol Last Admin: 05/18/18 09:04 Dose: 40 mg Umeclidinium [place] (Incruse Ellipta Mdi (Nf)) 1 inh INH DAILY [facility] Last Admin: 05/18/18 07:54 Dose: Not Given Objective: [] Vital Signs Temp Pulse Resp BP Pulse Ox 97.6 F 67 24 147/64 92 05/18/18 07:25 05/18/18 07:58 05/18/18 09:06 05/18/18 07:25 05/18/18 08:00 A&Ox3, EOMI, neuro grossly non-focal MMM, no thrush or mucositis IZAGUIRRE, no obvious deformities, no edema present HRR, S1S2, SR on tele LS dim to bases R>L without wheeze or rhonchi heard, mildly labored resp. with accessory muscle use Laboratory Results - last 24 hr 05/18/18 11:12 WBC 9.4 RBC 3.21 L Hgb 9.5 L Hct 29 L MCV 89 MCH 29 MCHC 33 RDW 21 H Plt Count 326 MPV 7.7 Neut % (Auto) 92.6 H Lymph % (Auto) 1.8 L [place] % (Auto) 5.5 Eos % (Auto) 0 Baso % (Auto) 0.1 Absolute Neuts (auto) 8.7 H Absolute Lymphs (auto) 0.2 L Absolute Monos (auto) 0.5 Absolute Eos (auto) 0 Absolute Basos (auto) 0 Absolute Nucleated RBC 0 Nucleated RBC % 0 Assessment: []78 yo male with recurrent NSCLC admitted with COPD exacerbation initially appearing to improve, however recurrent SOB with low O2 overnight. He had bilat. pleural effusions on admission and I would like to re-eval. these today as he may benefit from thoracentesis. Plan: []1. 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 trops), suspect cont.'s COPD exacerbation, however question of Gemcitabine toxicity; current tx. appropriate for either of the later. No further imaging for now. Dispo: inpt. d/t cont.'d SOB and hypoxia without dramatic improvement, cont. current IV steroids and frequent nebs with goal of home in next 48 hrs. Attempted to update pt.'s [id number], Viky ([phone]), per pt. request - message left on phone.
--- NOTE | 2018-05-18 11:07 | RAD ---
HISTORY: SOB, pleural effusion COMPARISONS: May 16, 2018 , CT dated May 16, 2018. VIEWS: 6, frontal AP and left and right lateral decubitus views of the chest. FINDINGS: CARDIOMEDIASTINAL SILHOUETTE: The cardiomediastinal silhouette is normal. JOSSE: The josse are normal. PLEURA: There is a small layering right pleural effusion. LUNG PARENCHYMA: There is hyperinflation with mild fibrotic changes. ABDOMEN: The upper abdomen is clear. There is no subphrenic gas. BONES AND SOFT TISSUES: The patient is status post anterior cervical fusion. OTHER: A left-sided chest port is noted. IMPRESSION: 1. SMALL LAYERING RIGHT PLEURAL EFFUSION. THE SMALL LEFT EFFUSION NOTED ON CT IS NOT WELL VISUALIZED ON THE CURRENT EXAMINATION. 2. COPD WITH FIBROTIC CHANGES.
[2018-05-18] MEDS: Polyethylene Glycol 3350* 17 GM PACKET PO SCH (11:20)
[2018-05-18 11:28] LABS: ABS Basophils 0 10^3/ul (0-0.2); ABS Eosinophils 0 10^3/ul (0-0.6); ABS Lymphocytes 0.2 10^3/ul (1.0-4.8); ABS Monocytes 0.5 10^3/ul (0-0.8); ABS Neutrophils 8.7 10^3/ul (1.5-7.7); ABS Nucleated RBC 0 10^3/ul; Eosinophil % 0 % (0-6); Hematocrit 29 % (42-52); Hemoglobin 9.5 g/dl (14.0-18.0); Lymphocyte % 1.8 % (25-47); Mean Corpuscular HGB Conc 33 g/dl (31-36); Mean Corpuscular Hemoglobin 29 pg (27-31); Mean Corpuscular Volume 89 fL (80-94); Mean Platelet Volume 7.7 um3 (7.4-10.4); Nucleated Red Blood Cells % 0; Platelet Count 326 10^3/ul (150-450); Red Blood Count 3.21 10^6/ul (4.00-5.40); Red Cell Distribution Width 21 % (10.5-15); White Blood Count 9.4 10^3/ul (3.5-10.8)
[2018-05-18 12:00] LABS: EGFR Non-African American 72.3 (>60)
[2018-05-18] MEDS: Enoxaparin(*) 40 MG/0.4 ML SYR SUBCUT SCH (16:05)
[2018-05-19] MEDS: methylPREDNISolone SOD 40 MG* 1 ML VIAL IV SCH ×2 (04:12→16:23)
[2018-05-19 04:40] LABS: Hematocrit 28 % (42-52); Hemoglobin 8.9 g/dl (14.0-18.0); Mean Corpuscular HGB Conc 32 g/dl (31-36); Mean Corpuscular Hemoglobin 29 pg (27-31); Mean Corpuscular Volume 89 fL (80-94); Mean Platelet Volume 7.6 um3 (7.4-10.4); Platelet Count 333 10^3/ul (150-450); Red Blood Count 3.07 10^6/ul (4.00-5.40); Red Cell Distribution Width 21 % (10.5-15); White Blood Count 8.2 10^3/ul (3.5-10.8)
[2018-05-19 05:01] LABS: EGFR Non-African American 87.2 (>60)
[2018-05-19] MEDS: Mometasone/Formoter 200/5 MDI INH SCH ×2 (07:36→19:43)
[2018-05-19] MEDS: UMECLIDIN MDI INH SCH (07:48)
--- NOTE | 2018-05-19 09:48 | PN ---
Progress Note - Progress Note Date of Service: 05/19/18 SOAP: Subjective: []Feeling OK but still gets very winded with any exertion. Starts having coughing fits and gets band like chest pain. Brought up some sputum overnight. No BM yet. 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 Medications: Albuterol/Ipratropium (Duoneb (Albuterol 2.5 Mg/Ipratropium 0.5 Mg)) 1 neb INH Q4H PRN PRN Reason: SOB/WHEEZING Last Admin: 05/17/18 13:44 Dose: 1 neb Cetirizine HCl (Zyrtec*) 10 mg PO DAILY [facility] Last Admin: 05/18/18 09:05 Dose: 10 mg Clopidogrel Bisulfate (Plavix Tab*) 75 mg PO DAILY [facility] Last Admin: 05/18/18 09:05 Dose: 75 mg Dicyclomine HCl (Bentyl Cap*) 20 mg PO BID [facility] Last Admin: 05/18/18 22:05 Dose: 20 mg Enoxaparin Sodium (Lovenox(*)) 40 mg SUBCUT Q24H [facility] Last Admin: 05/18/18 16:05 Dose: 40 mg Guaifenesin/Codeine Phosphate (Robitussin Ac 100mg-10mg*) 10 ml PO Q6HR PRN PRN Reason: COUGH Last Admin: 05/18/18 22:05 Dose: 10 ml Heparin Sodium (Porcine) (Heparin Flush Port (Ivad)) 5 ml FLUSH DAILY [facility]; Protocol Last Admin: 05/18/18 11:20 Dose: 5 ml Losartan Potassium (Cozaar Tab*) 25 mg PO DAILY [facility] Last Admin: 05/18/18 09:06 Dose: 25 mg Methylprednisolone Sodium Succinate (Solu-Medrol 40 Mg) 40 mg IV Q12H [facility] Last Admin: 05/19/18 04:12 Dose: 40 mg Metoprolol Succinate (Toprol Xl Tab*) 50 mg PO DAILY [facility] Last Admin: 05/18/18 09:05 Dose: 50 mg Mometasone Furoate/Formoterol Fumar (Dulera 200/5 Mdi*) 2 puff INH BID [facility] Last Admin: 05/19/18 07:36 Dose: 2 puff Oxybutynin Chloride (Ditropan Tab*) 5 mg PO QAM [facility] Last Admin: 05/18/18 09:05 Dose: 5 mg Pantoprazole Sodium (Protonix Tab (Nf)) 40 mg PO DAILY [facility]; Protocol Last Admin: 05/18/18 09:04 Dose: 40 mg Polyethylene Glycol/Electrolytes (Miralax*) 17 gm PO DAILY [facility] Last Admin: 05/18/18 11:20 Dose: 17 gm Umeclidinium [place] (Incruse Ellipta Mdi (Nf)) 1 inh INH DAILY [facility] Last Admin: 05/19/18 07:48 Dose: Not Given Objective: [] Vital Signs Temp Pulse Resp BP Pulse Ox 97.7 F 64 14 138/62 95 05/19/18 07:37 05/19/18 07:37 05/19/18 08:00 05/19/18 07:57 05/19/18 07:37 A&Ox3, EOMI, IZAGUIRRE, neuro grossly non-focal HRR, S1S2, SR on tele LS with snorous rhonchi throughout, dry cough, mildly labored respirations +BS, abd. soft and non-tender +PP=bilat., no edema noted Laboratory Results - last 24 hr 05/18/18 05/18/18 05/19/18 11:12 11:12 04:20 WBC 9.4 8.2 RBC 3.21 L 3.07 L Hgb 9.5 L 8.9 L Hct 29 L 28 L MCV 89 89 MCH 29 29 MCHC 33 32 RDW 21 H 21 H Plt Count 326 333 MPV 7.7 7.6 Neut % (Auto) 92.6 H Lymph % (Auto) 1.8 L [place] % (Auto) 5.5 Eos % (Auto) 0 Baso % (Auto) 0.1 Absolute Neuts (auto) 8.7 H Absolute Lymphs (auto) 0.2 L Absolute Monos (auto) 0.5 Absolute Eos (auto) 0 Absolute Basos (auto) 0 Absolute Nucleated RBC 0 Nucleated RBC % 0 Sodium 137 Potassium 3.7 Chloride 105 Carbon Dioxide 24 Anion Gap 8 BUN 30 H Creatinine 1.00 Est GFR ( Amer) 87.4 Est GFR (Non-Af Amer) 72.3 BUN/Creatinine Ratio 30.0 H Glucose 173 H Calcium 8.2 L Total Bilirubin 0.50 AST 41 H ALT 47 Alkaline Phosphatase 63 Total Protein 5.9 L Albumin 3.0 L Globulin 2.9 Albumin/Globulin Ratio 1.0 05/19/18 04:20 WBC RBC Hgb Hct MCV MCH MCHC RDW Plt Count MPV Neut % (Auto) Lymph % (Auto) [place] % (Auto) Eos % (Auto) Baso % (Auto) Absolute Neuts (auto) Absolute Lymphs (auto) Absolute Monos (auto) Absolute Eos (auto) Absolute Basos (auto) Absolute Nucleated RBC Nucleated RBC % Sodium 140 Potassium 4.2 Chloride 108 Carbon Dioxide 26 Anion Gap 6 BUN 31 H Creatinine 0.85 Est GFR ( Amer) 105.5 Est GFR (Non-Af Amer) 87.2 BUN/Creatinine Ratio 36.5 H Glucose 113 H Calcium 8.0 L Total Bilirubin 0.50 AST 48 H ALT 62 H Alkaline Phosphatase 57 Total Protein 5.3 L Albumin 2.7 L Globulin 2.6 Albumin/Globulin Ratio 1.0 Microbiology 05/16/18 14:13 Aerobic Blood Culture - Preliminary Blood Venous No Growth Day 2 Anaerobic Blood Culture - Preliminary No Growth Day 2 05/16/18 13:25 Aerobic Blood Culture - Preliminary Blood Venous No Growth Day 2 Anaerobic Blood Culture - Preliminary No Growth Day 2 05/16/18 16:11 Urine Culture - Final Urine Assessment: []78 yo male with recurrent NSCLC admitted in acute respiratory failure with hypoxia (O2 SAT 86% on RA with progressive SOB) likely secondary to progressive COPD and question of Gemcitabine toxicity, although no obvious radiological changes to account for the later. Overall he has improved from admission, though with cont.'d SOB and coughing fits following any exertion and I suspect he will have a prolonged recovery back to baseline. Plan: []1. Acute Resp. Failure: resolved, though cont.'d c/o SOB - cont guafenesin syrup - add flutter valve - send sputum for culture and sensitivity as he was able to produce some - goal is home therefore PT/OT eval. today, I have informed him that I do not think he should cont. 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 NSCLC: chemo on hold for now - if true gem. toxicity treatment is the same as with COPD exacerbation, however may need longer term steroids 3. Constipation: - repeat miralax today 4. Dehydration: rising BUN/Cr ratio and doesn't drink a lot of fluids, will give 1 L slowly today Plan of care reviewed with Mr. Alvares and his grandson at length, goal of home tomorrow >40 min spent with >50% face to face counseling
[2018-05-19] MEDS: guaiFENesin/CODIEN 100MG-10MG* 5 ML UDC PO PRN (09:51)
[2018-05-19] MEDS: Dicyclomine CAP* 10 MG PO SCH ×2 (09:51→21:36)
[2018-05-19] MEDS: Polyethylene Glycol 3350* 17 GM PACKET PO SCH (09:51)
[2018-05-19] MEDS: Clopidogrel TAB* 75 MG PO SCH (09:52)
[2018-05-19] MEDS: CMC: Pantoprazole TAB (NF) 40 MG TAB PO SCH (09:52)
[2018-05-19] MEDS: Oxybutynin TAB* 5 MG PO SCH (09:52)
[2018-05-19] MEDS: Losartan TAB* 25 MG PO SCH (09:52)
[2018-05-19] MEDS: Metoprolol Succinate XL TAB* 50 MG PO SCH (09:52)
[2018-05-19] MEDS: Cetirizine* 10 MG TAB PO SCH (09:52)
[2018-05-19] MEDS: Azithromycin TAB* 250 MG PO SCH (09:53)
[2018-05-19] MEDS ORDERED: Polyethylene Glycol 3350* 17 GM PACKET PO ONE (10:43)
[2018-05-19] MEDS: NS 0.9% 1000 ML* 1,000 ML IV SCH (12:57)
[2018-05-19] MEDS: Enoxaparin(*) 40 MG/0.4 ML SYR SUBCUT SCH (16:24)
[2018-05-20] MEDS: NS 0.9% 1000 ML* 1,000 ML IV SCH (02:33)
[2018-05-20] MEDS: methylPREDNISolone SOD 40 MG* 1 ML VIAL IV SCH ×2 (04:43→17:16)
[2018-05-20] MEDS: Albuterol/Ipratropium NEB.SOL* Albuterol 2.5 MG/Ipratropium 0.5 MG 3 ML INH PRN (07:32)
[2018-05-20] MEDS: Mometasone/Formoter 200/5 MDI INH SCH ×2 (07:32→19:24)
[2018-05-20] MEDS: Dicyclomine CAP* 10 MG PO SCH ×2 (07:41→20:51)
[2018-05-20] MEDS: Losartan TAB* 25 MG PO SCH (07:43)
[2018-05-20] MEDS: Metoprolol Succinate XL TAB* 50 MG PO SCH (07:43)
[2018-05-20] MEDS: CMC: Pantoprazole TAB (NF) 40 MG TAB PO SCH (07:43)
[2018-05-20] MEDS: Cetirizine* 10 MG TAB PO SCH (07:43)
[2018-05-20] MEDS: Clopidogrel TAB* 75 MG PO SCH (07:43)
[2018-05-20] MEDS: Oxybutynin TAB* 5 MG PO SCH (07:43)
[2018-05-20] MEDS: UMECLIDIN MDI INH SCH (07:48)
[2018-05-20] MEDS: Polyethylene Glycol 3350* 17 GM PACKET PO SCH (07:49)
[2018-05-20] MEDS ORDERED: Acetaminophen TAB* 325 MG PO PRN (08:04)
[2018-05-20] MEDS: guaiFENesin/CODIEN 100MG-10MG* 5 ML UDC PO PRN ×2 (09:13→22:37)
[2018-05-20] MEDS ORDERED: methylPREDNISolone 125 MG* 2 ML VIAL IV ONE (10:32)
[2018-05-20] MEDS: Enoxaparin(*) 40 MG/0.4 ML SYR SUBCUT SCH (15:43)
[2018-05-20] MEDS ORDERED: Furosemide IV* 10 MG/ML 2 ML VIAL (20 MG) IV ONE (16:00)
[2018-05-21] MEDS: methylPREDNISolone SOD 40 MG* 1 ML VIAL IV SCH ×2 (02:23→09:16)
[2018-05-21] MEDS: UMECLIDIN MDI INH SCH (07:16)
[2018-05-21] MEDS: Mometasone/Formoter 200/5 MDI INH SCH ×2 (07:58→20:26)
[2018-05-21 08:49] LABS: EGFR Non-African American 83.8 (>60)
[2018-05-21] MEDS: Oxybutynin TAB* 5 MG PO SCH (09:15)
[2018-05-21] MEDS: Metoprolol Succinate XL TAB* 50 MG PO SCH (09:15)
[2018-05-21] MEDS: Furosemide TAB* 20 MG PO SCH (09:15)
[2018-05-21] MEDS: CMC: Pantoprazole TAB (NF) 40 MG TAB PO SCH (09:15)
[2018-05-21] MEDS: Clopidogrel TAB* 75 MG PO SCH (09:15)
[2018-05-21] MEDS: Cetirizine* 10 MG TAB PO SCH (09:16)
[2018-05-21] MEDS: Dicyclomine CAP* 10 MG PO SCH ×2 (09:16→21:29)
[2018-05-21] MEDS: Losartan TAB* 25 MG PO SCH (09:16)
[2018-05-21] MEDS: Polyethylene Glycol 3350* 17 GM PACKET PO SCH ×2 (09:16→09:22)
--- NOTE | 2018-05-21 09:40 | PN ---
Progress Note - Progress Note Date of Service: 05/21/18 SOAP: Subjective: []Feels better today with lasix. Slept well last night and breathing improved this am. No chest pain. no fever or chills. Acetaminophen (Tylenol Tab*) 650 mg PO Q4H PRN PRN Reason: HEADACHE Last Admin: 05/20/18 09:14 Dose: 650 mg Albuterol/Ipratropium (Duoneb (Albuterol 2.5 Mg/Ipratropium 0.5 Mg)) 1 neb INH Q4H PRN PRN Reason: SOB/WHEEZING Last Admin: 05/20/18 07:32 Dose: 1 neb Cetirizine HCl (Zyrtec*) 10 mg PO DAILY [facility] Last Admin: 05/21/18 09:16 Dose: 10 mg Clopidogrel Bisulfate (Plavix Tab*) 75 mg PO DAILY [facility] Last Admin: 05/21/18 09:15 Dose: 75 mg Dicyclomine HCl (Bentyl Cap*) 20 mg PO BID [facility] Last Admin: 05/21/18 09:16 Dose: 20 mg Enoxaparin Sodium (Lovenox(*)) 40 mg SUBCUT Q24H [facility] Last Admin: 05/20/18 15:43 Dose: 40 mg Furosemide (Lasix Tab*) 20 mg PO DAILY [facility] Last Admin: 05/21/18 09:15 Dose: 20 mg Guaifenesin/Codeine Phosphate (Robitussin Ac 100mg-10mg*) 10 ml PO Q6HR PRN PRN Reason: COUGH Last Admin: 05/20/18 22:37 Dose: 10 ml Heparin Sodium (Porcine) (Heparin Flush Port (Ivad)) 5 ml FLUSH DAILY [facility]; Protocol Last Admin: 05/21/18 08:06 Dose: Not Given Sodium Chloride (Ns 0.9% 1000 Ml*) 1,000 mls @ 75 mls/hr IV PER RATE [facility] Last Admin: 05/20/18 02:33 Dose: 75 mls/hr Losartan Potassium (Cozaar Tab*) 25 mg PO DAILY [facility] Last Admin: 05/21/18 09:16 Dose: 25 mg Methylprednisolone Sodium Succinate (Solu-Medrol 40 Mg) 40 mg IV Q8H [facility] Last Admin: 05/21/18 09:16 Dose: 40 mg Metoprolol Succinate (Toprol Xl Tab*) 50 mg PO DAILY [facility] Last Admin: 05/21/18 09:15 Dose: 50 mg Mometasone Furoate/Formoterol Fumar (Dulera 200/5 Mdi*) 2 puff INH BID [facility] Last Admin: 05/21/18 07:58 Dose: 2 puff Oxybutynin Chloride (Ditropan Tab*) 5 mg PO QAM [facility] Last Admin: 05/21/18 09:15 Dose: 5 mg Pantoprazole Sodium (Protonix Tab (Nf)) 40 mg PO DAILY [facility]; Protocol Last Admin: 05/21/18 09:15 Dose: 40 mg Polyethylene Glycol/Electrolytes (Miralax*) 17 gm PO DAILY [facility] Last Admin: 05/21/18 09:22 Dose: Not Given Umeclidinium [place] (Incruse Ellipta Mdi (Nf)) 1 inh INH DAILY [facility] Last Admin: 05/21/18 07:16 Dose: Not Given Objective: [] Vital Signs Temp Pulse Resp BP Pulse Ox 98.0 F 73 20 148/48 92 05/21/18 07:59 05/21/18 08:03 05/21/18 09:16 05/21/18 07:59 05/21/18 08:03 HEENT - cushioned, no thrush No wheezing today, decreased BS Obese, NT ND Ext tr edema skin no lesions AAOx3 EKG - T wave down V 4-V6, new from 05/16. No ST changes Assessment: []78 year old with lung cancer on chemotherapy with gemcitabine. Has been responding but with progressive SOB. 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 Plan: []1. SOB. - Will continue steriods but convert to PO. Will give Prednisone 50 mg daily today and taper. - Discontinue gemcitabine - continue nebs and will need inhalers on discharge: Spiriva, Advair 2. Cardiac. High threshold for intervention given metastatic lung cancer. - Continue lasix 20 mg po daily - Increased Trop, fliped T on EKG - Consult Cardiology - check BNP and Troponin with AM labs 3. Lung cancer. Discussed with family and unsure if will continue any therapy or hospice once recovered from acute event. 4. Pain. He wants PRN oxycodone.
[2018-05-21] MEDS: predniSONE TAB* 50 MG PO SCH (11:58)
[2018-05-21] MEDS: NS 0.9% 1000 ML* 1,000 ML IV SCH (16:26)
[2018-05-21] MEDS: Enoxaparin(*) 40 MG/0.4 ML SYR SUBCUT SCH (16:26)
[2018-05-21] MEDS: guaiFENesin/CODIEN 100MG-10MG* 5 ML UDC PO PRN (21:30)
[2018-05-21] MEDS: Metoprolol Tartrate TAB* 25 MG PO SCH (21:30)
--- NOTE | 2018-05-21 21:40 | CONS ---
CC: Dr. Mejias; Dr. Hale; Dr. Carroll; Dr. Aceves CARDIOLOGY CONSULT: DATE OF CONSULT: 05/21/18 HISTORY OF PRESENT ILLNESS: I was asked by Dr. Hale to see this 78-year-old male patient, who presented to the hospital on 05/16/18 with progressive symptoms of shortness of breath and some chest pressure. The patient does have history of lung cancer with mets and history of COPD and emphysema, history of diastolic congestive heart failure. Cardiology consult was further requested for an increase in the patient's troponins from 0.12, then 0.16, then 0.12 today at 6 o'clock this morning. He also was found to have T-wave inversions on today's EKG anteriorly, which were not present on his EKG from 05/16/18. In speaking to the patient, he does not have chest pain at the moment, but he does get winded when he walks around and gets short of breath and sometimes he feels some chest pressure. Back in November 2017, he was taken to the cardiac labor relations supervisor by Dr. Carroll, who did on him a cardiac cath and intervention for non-STEMI. At that time, he was found to have severe in- stent restenosis of his previously stented LAD from before, excellent angiographic results, normal LV function. On 05/17/18, he had an echocardiogram that showed him to have a normal left ventricular systolic function, EF 55% to 60%, moderate aortic stenosis, [id number] aortic insufficiency, trace tricuspid insufficiency. The patient had no fever, no chills, no skin rash, no tremors, no hematochezia, no nausea, no vomiting, no abdominal pain, no syncope, no major swelling of the lower extremities is appreciated. PAST MEDICAL HISTORY: Extensive including coronary artery disease, old stents of the LAD and then in-stent restenosis recently November 2017 with drug-eluting stent; history of hyperlipidemia; systemic arterial hypertension; aortic stenosis; diastolic heart failure; prostate cancer; lung cancer with mets. PAST SURGICAL HISTORY: Back surgery, prostatectomy, appendectomy, gallbladder surgery, right knee surgery. MEDICATIONS: His medications as an outpatient include: 1. Losartan 25 mg once daily. 2. Metoprolol 50 mg once daily. 3. Simvastatin 40 mg daily. 4. Aspirin 81 mg daily. 5. Brilinta 90 mg twice daily. 6. Omeprazole 40 mg daily. 7. Hydrochlorothiazide 25 mg daily. 8. He is also on hydroxyzine 10 mg 1 to 2 tablets 8 hourly. ALLERGIES: No known drug allergies. FAMILY HISTORY: Noncontributory. 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 He is a former smoker. No history of alcohol. No history of illicit drug use. PHYSICAL EXAM: He is awake, alert, and oriented. He had no symptoms of chest pain. His vitals, blood pressure of 155/46; pulse is 54, sinus rhythm; respiratory rate 18; he is afebrile at 98.3. Head and Neck Exam: Normocephalic , atraumatic head. Ears, nose, and throat essentially benign. Neck: Supple. JVP is not elevated. No carotid bruits. No masses in the neck are appreciated. Chest: Diminished air entry at the bases. No rales, no wheeze. Heart is normal, S1 and S2. No added sounds, no gallops. There is a grade 3/6 systolic murmur in the left sternal border. Abdomen: Benign, soft. Positive bowel sounds. Extremities: No significant edema, no cyanosis, no clubbing. Skin exam is normal. Psych: Normal affect and mood. TRACK MANAGER: No focal deficits appreciated. DIAGNOSTIC STUDIES/LAB DATA: Labs showed the following: White blood cell 8.2, hemoglobin 8.9, hematocrit 28, platelets 333. His chemistry showed sodium 140, potassium 4.2, chloride 108, total CO2 of 24, BUN 33, creatinine 0.88. LFTs: His ALT is 65. Troponin as mentioned. His BNP 1265 on 05/20/18. His echo on 05/17/18 as described. His EKG as described from today. His chest x-ray that was done on 05/18/18 showed him to have small right pleural effusion, COPD with fibrotic changes. IMPRESSION: The patient is a 78-year-old male patient with: 1. Presentation with progressive symptoms of shortness of breath, could be complex, multifactorial in nature including his lung cancer with metastasis, severe chronic obstructive pulmonary disease, emphysema, diastolic heart failure , coronary artery disease. 2. Known history of coronary artery disease with severe in-stent restenosis and non-ST elevation myocardial infarction, cath, November 2017, with successful stenting of the in-stent restenosis of the left anterior descending artery. 3. Normal left ventricular systolic function. 4. Moderate aortic stenosis. 5. Mnels-de-acfh aortic insufficiency. 6. Trace tricuspid insufficiency. 7. EKG changes and abnormal troponin concerning for ischemic coronary artery disease. 8. Obesity. 9. Hyperlipidemia. 10. Systemic arterial hypertension. 11. Prostate cancer. There is no history of chemo or radiation treatment. PLAN: Complex situation. I have discussed him via phone with Dr. Hale. At the present time, I think tuning him cardiac alonso and treatment for his diastolic congestive heart failure is a priority. I agree with you are already doing lasix and he is actually improving on this. Continue his Plavix. Continue his Lovenox as you are already doing and continue losartan. I will restart his beta babita, metoprolol 25 mg twice a day, and follow closely his blood pressure and his heart rate. We discussed cardiac catheterization given his known CAD, positive troponin, EKG changes, symptoms. Dr. Hale will discuss with the family if that is feasible as well as with the patient and see their wishes and his wishes given his lung cancer with mets. Daily weights, I's and O 's, keep a close eye on his electrolytes, especially potassium and magnesium, and follow his renal function closely. I have answered all his concerns and questions up to his satisfaction. If needed, which I think he is already feeling better, I would give Lasix 20 mg, but if needed that can be used more or increased in dose and frequency. Thank you very much for asking us to participate in the care of this patient. TIME SPENT: More than half of at least 60 to 65 plus minutes was in face-to- face education, counseling mode, explaining all of the above to the patient, answering his questions, and making further recommendations. [id number]/[facility] #: [id number] [facility] CENTERCelina
[2018-05-21] MEDS: oxyCODONE TAB* 5 MG TAB PO PRN (23:39)
[2018-05-22 06:47] LABS: ABS Basophils 0 10^3/ul (0-0.2); ABS Eosinophils 0 10^3/ul (0-0.6); ABS Lymphocytes 0.4 10^3/ul (1.0-4.8); ABS Monocytes 1.4 10^3/ul (0-0.8); ABS Neutrophils 7.9 10^3/ul (1.5-7.7); ABS Nucleated RBC 0 10^3/ul; Eosinophil % 0 % (0-6); Hematocrit 32 % (42-52); Hemoglobin 10.3 g/dl (14.0-18.0); Lymphocyte % 3.9 % (25-47); Mean Corpuscular HGB Conc 33 g/dl (31-36); Mean Corpuscular Hemoglobin 30 pg (27-31); Mean Corpuscular Volume 91 fL (80-94); Nucleated Red Blood Cells % 0; Platelet Count 402 10^3/ul (150-450); Red Blood Count 3.48 10^6/ul (4.00-5.40); Red Cell Distribution Width 22 % (10.5-15); White Blood Count 9.6 10^3/ul (3.5-10.8)
[2018-05-22] MEDS: UMECLIDIN MDI INH SCH (07:03)
[2018-05-22 07:08] LABS: EGFR Non-African American 82.7 (>60)
[2018-05-22] MEDS: Mometasone/Formoter 200/5 MDI INH SCH ×3 (07:17→19:45)
[2018-05-22] MEDS: NS 0.9% 1000 ML* 1,000 ML IV SCH (08:40)
[2018-05-22] MEDS: Losartan TAB* 25 MG PO SCH (08:45)
[2018-05-22] MEDS: Metoprolol Tartrate TAB* 25 MG PO SCH ×2 (08:45→20:35)
[2018-05-22] MEDS: Clopidogrel TAB* 75 MG PO SCH (08:45)
[2018-05-22] MEDS: Dicyclomine CAP* 10 MG PO SCH ×2 (08:45→20:35)
[2018-05-22] MEDS: Cetirizine* 10 MG TAB PO SCH (08:45)
[2018-05-22] MEDS: Furosemide TAB* 20 MG PO SCH (08:45)
[2018-05-22] MEDS: Oxybutynin TAB* 5 MG PO SCH (08:46)
[2018-05-22] MEDS: CMC: Pantoprazole TAB (NF) 40 MG TAB PO SCH (08:46)
[2018-05-22] MEDS: Polyethylene Glycol 3350* 17 GM PACKET PO SCH (08:46)
[2018-05-22] MEDS: predniSONE TAB* 50 MG PO SCH (08:46)
[2018-05-22] MEDS ORDERED: Nitroglycerin TAB 0.4 MG* 0.4 MG TAB SL PRN (09:27)
[2018-05-22] MEDS ORDERED: Nitroglycerin TAB 0.4 MG* 0.4 MG TAB ONE (09:29)
--- NOTE | 2018-05-22 11:14 | PN ---
Subjective Date of Service: 05/22/18 Interval History: Patient had about 20 minutes midsternal chest pain radiating to his left arm, similar to his NM pain in the past. It was relieved by 1 NTG. He also c/o thick sputum. Objective Active Medications: Acetaminophen (Tylenol Tab*) 650 mg PO Q4H PRN PRN Reason: HEADACHE Last Admin: 05/20/18 09:14 Dose: 650 mg Albuterol/Ipratropium (Duoneb (Albuterol 2.5 Mg/Ipratropium 0.5 Mg)) 1 neb INH Q4H PRN PRN Reason: SOB/WHEEZING Last Admin: 05/20/18 07:32 Dose: 1 neb Cetirizine HCl (Zyrtec*) 10 mg PO DAILY [facility] Last Admin: 05/22/18 08:45 Dose: 10 mg Clopidogrel Bisulfate (Plavix Tab*) 75 mg PO DAILY [facility] Last Admin: 05/22/18 08:45 Dose: 75 mg Dicyclomine HCl (Bentyl Cap*) 20 mg PO BID [facility] Last Admin: 05/22/18 08:45 Dose: 20 mg Enoxaparin Sodium (Lovenox(*)) 40 mg SUBCUT Q24H [facility] Last Admin: 05/21/18 16:26 Dose: 40 mg Furosemide (Lasix Tab*) 20 mg PO DAILY [facility] Last Admin: 05/22/18 08:45 Dose: 20 mg Guaifenesin/Codeine Phosphate (Robitussin Ac 100mg-10mg*) 10 ml PO Q6HR PRN PRN Reason: COUGH Last Admin: 05/21/18 21:30 Dose: 10 ml Heparin Sodium (Porcine) (Heparin Flush Port (Ivad)) 5 ml FLUSH DAILY [facility]; Protocol Last Admin: 05/22/18 08:31 Dose: Not Given Sodium Chloride (Ns 0.9% 1000 Ml*) 1,000 mls @ 75 mls/hr IV PER RATE [facility] Last Admin: 05/22/18 08:40 Dose: 75 mls/hr Isosorbide Mononitrate (Imdur Er Tab*) 30 mg PO DAILY [facility] Losartan Potassium (Cozaar Tab*) 25 mg PO DAILY [facility] Last Admin: 05/22/18 08:45 Dose: 25 mg Metoprolol Tartrate (Lopressor Tab*) 25 mg PO BID [facility] Last Admin: 05/22/18 08:45 Dose: 25 mg Mometasone Furoate/Formoterol Fumar (Dulera 200/5 Mdi*) 2 puff INH BID [facility] Last Admin: 05/22/18 08:07 Dose: 2 puff Nitroglycerin (Nitroglycerin Tab 0.4 Mg*) 0.4 mg SL Q5M PRN PRN Reason: ANGINA Last Admin: 05/22/18 09:32 Dose: 0.4 mg Oxybutynin Chloride (Ditropan Tab*) 5 mg PO QAM [facility] Last Admin: 05/22/18 08:46 Dose: 5 mg Oxycodone HCl (Roxycodone Tab*) 5 mg PO Q4H PRN PRN Reason: PAIN Last Admin: 05/21/18 23:39 Dose: 5 mg Pantoprazole Sodium (Protonix Tab (Nf)) 40 mg PO DAILY [facility]; Protocol Last Admin: 05/22/18 08:46 Dose: 40 mg Polyethylene Glycol/Electrolytes (Miralax*) 17 gm PO DAILY [facility] Last Admin: 05/22/18 08:46 Dose: Not Given Prednisone (Deltasone Tab*) 40 mg PO DAILY [facility] Umeclidinium [place] (Incruse Ellipta Mdi (Nf)) 1 inh INH DAILY [facility] Last Admin: 05/22/18 07:03 Dose: Not Given Vital Signs - 8 hr 05/22/18 05/22/18 05/22/18 03:29 07:11 07:20 Temperature 97.6 F 97.8 F Pulse Rate 59 62 61 Respiratory 16 18 16 Rate Blood Pressure 154/54 161/55 (mmHg) O2 Sat by Pulse 95 95 92 Oximetry 05/22/18 05/22/18 05/22/18 08:45 09:13 09:33 Temperature 97.4 F Pulse Rate 108 86 Respiratory 22 24 Rate Blood Pressure 177/89 165/69 (mmHg) O2 Sat by Pulse 98 Oximetry 05/22/18 10:27 Temperature Pulse Rate Respiratory 20 Rate Blood Pressure (mmHg) O2 Sat by Pulse 98 Oximetry Oxygen Devices in Use Now: Nasal Cannula Appearance: Alert, partly up in bed. In good spirits. Looks comfortable. Eyes: No Scleral Icterus Respiratory: Clear to Percussion, - - mild scattered rhonchi BL Cardiovascular: NL Sounds; No Murmurs; No JVD, RRR, No Edema, - Extremities: No Edema, No Clubbing, Cyanosis, - Skin: No Rash or Ulcers, No Nodules or Sclerosis, - Neurological: Alert and Oriented x 3, NL Sensation Result Diagrams: 05/22/18 06:30 05/22/18 06:30 Microbiology and Other Data: Microbiology 05/16/18 14:13 Aerobic Blood Culture - Final Blood Venous No Growth Day 5 Anaerobic Blood Culture - Final No Growth Day 5 05/16/18 13:25 Aerobic Blood Culture - Final Blood Venous No Growth Day 5 Anaerobic Blood Culture - Final No Growth Day 5 05/19/18 10:46 Gram Stain - Final Sputum Sputum Culture - Final Normal Maribel 05/16/18 16:11 Urine Culture - Final Urine Assess/Plan/Problems-Billing Assessment: - Patient Problems (1) CAD (coronary artery disease) Current Visit: No Status: Acute Code(s): I25.10 - ATHSCL HEART DISEASE OF [place] CORONARY ARTERY W/O ANG PCTRS SNOMED Code(s): 96142065 Comment: Troponin peak 0.16 05/20/18 7 PM. Probable angina 05/22. Add isosorbid mononitrate 30 mg daily, start 05/22 AM. Had NSTEMI and Intermediate risk stress test with restenting of LAD. Hemoglobin A1c pending. Lipid profile WNL. Continue statin. Continue Losartan, Metoprolol, Aspirin, clopidogrel. (2) Emphysema lung Current Visit: No Status: Acute Code(s): J43.9 - EMPHYSEMA, UNSPECIFIED SNOMED Code(s): 23642437 Comment: Taper prednison to 40 mg on 05/23. Change guaifenesin syrup to no codeine and scheduled. Continue Duoneb, umeclidin. (3) Lung cancer Current Visit: No Status: Acute Code(s): C34.90 - MALIGNANT NEOPLASM OF UNSP PART OF UNSP BRONCHUS OR LUNG SNOMED Code(s): 999020403 Comment: Management per oncology. (4) Hypertension Current Visit: No Status: Acute Code(s): I10 - ESSENTIAL (PRIMARY) HYPERTENSION SNOMED Code(s): 56657928 Comment: Continue losartan, metoprolol. (5) GERD (gastroesophageal reflux disease) Current Visit: No Status: Acute Code(s): K21.9 - GASTRO-ESOPHAGEAL REFLUX DISEASE WITHOUT ESOPHAGITIS SNOMED Code(s): 887863294 Comment: Continue pantoprazole
[2018-05-22] MEDS ORDERED: guaiFENesin/CODIEN 100MG-10MG* 5 ML UDC PO SCH (12:00)
[2018-05-22] MEDS: Isosorbide Mononitrate ER TAB* 30 MG PO SCH (13:13)
[2018-05-22] MEDS: guaiFENesin LIQ* 100 MG/5 ML UDC PO SCH ×3 (13:13→20:34)
[2018-05-22] MEDS: Enoxaparin(*) 40 MG/0.4 ML SYR SUBCUT SCH (17:25)
[2018-05-22] MEDS: oxyCODONE TAB* 5 MG TAB PO PRN (22:55)
[2018-05-23] MEDS: Mometasone/Formoter 200/5 MDI INH SCH ×2 (08:14→21:32)
[2018-05-23] MEDS: UMECLIDIN MDI INH SCH (08:16)
[2018-05-23] MEDS: guaiFENesin LIQ* 100 MG/5 ML UDC PO SCH ×4 (09:13→20:45)
[2018-05-23] MEDS: Dicyclomine CAP* 10 MG PO SCH ×2 (09:14→20:45)
[2018-05-23] MEDS: Cetirizine* 10 MG TAB PO SCH (09:14)
[2018-05-23] MEDS: Clopidogrel TAB* 75 MG PO SCH (09:14)
[2018-05-23] MEDS: CMC: Pantoprazole TAB (NF) 40 MG TAB PO SCH (09:15)
[2018-05-23] MEDS: Metoprolol Tartrate TAB* 25 MG PO SCH (09:15)
[2018-05-23] MEDS: Oxybutynin TAB* 5 MG PO SCH (09:15)
[2018-05-23] MEDS: Losartan TAB* 25 MG PO SCH (09:15)
[2018-05-23] MEDS: Isosorbide Mononitrate ER TAB* 30 MG PO SCH (09:15)
[2018-05-23] MEDS: Furosemide TAB* 20 MG PO SCH (09:15)
[2018-05-23] MEDS: predniSONE TAB* 20 MG PO SCH (09:15)
[2018-05-23] MEDS: Polyethylene Glycol 3350* 17 GM PACKET PO SCH (09:17)
--- NOTE | 2018-05-23 10:19 | PN ---
Progress Note - Progress Note Date of Service: 05/23/18 SOAP: Subjective: []Still with some chest pain this am, pressure. He thinks it is heartburn as pain came on after breakfast. he is better on diuretics. Breathing better and sleeping well over night. urinating when he has Lasix. No fever or chills, having bowl movements, urinating without difficulty. Acetaminophen (Tylenol Tab*) 650 mg PO Q4H PRN PRN Reason: HEADACHE Last Admin: 05/20/18 09:14 Dose: 650 mg Albuterol/Ipratropium (Duoneb (Albuterol 2.5 Mg/Ipratropium 0.5 Mg)) 1 neb INH Q4H PRN PRN Reason: SOB/WHEEZING Last Admin: 05/20/18 07:32 Dose: 1 neb Cetirizine HCl (Zyrtec*) 10 mg PO DAILY [facility] Last Admin: 05/23/18 09:14 Dose: 10 mg Clopidogrel Bisulfate (Plavix Tab*) 75 mg PO DAILY [facility] Last Admin: 05/23/18 09:14 Dose: 75 mg Dicyclomine HCl (Bentyl Cap*) 20 mg PO BID [facility] Last Admin: 05/23/18 09:14 Dose: 20 mg Enoxaparin Sodium (Lovenox(*)) 40 mg SUBCUT Q24H [facility] Last Admin: 05/22/18 17:25 Dose: 40 mg Furosemide (Lasix Tab*) 20 mg PO DAILY [facility] Last Admin: 05/23/18 09:15 Dose: 20 mg Guaifenesin (Robitussin*) 10 ml PO QID [facility] Last Admin: 05/23/18 09:13 Dose: 10 ml Heparin Sodium (Porcine) (Heparin Flush Port (Ivad)) 5 ml FLUSH DAILY [facility]; Protocol Last Admin: 05/23/18 09:15 Dose: 5 ml Isosorbide Mononitrate (Imdur Er Tab*) 30 mg PO DAILY [facility] Last Admin: 05/23/18 09:15 Dose: 30 mg Losartan Potassium (Cozaar Tab*) 25 mg PO DAILY [facility] Last Admin: 05/23/18 09:15 Dose: 25 mg Metoprolol Tartrate (Lopressor Tab*) 25 mg PO BID [facility] Last Admin: 05/23/18 09:15 Dose: 25 mg Mometasone Furoate/Formoterol Fumar (Dulera 200/5 Mdi*) 2 puff INH BID [facility] Last Admin: 05/23/18 08:14 Dose: 2 puff Nitroglycerin (Nitroglycerin Tab 0.4 Mg*) 0.4 mg SL Q5M PRN PRN Reason: ANGINA Last Admin: 05/22/18 09:32 Dose: 0.4 mg Oxybutynin Chloride (Ditropan Tab*) 5 mg PO QAM [facility] Last Admin: 05/23/18 09:15 Dose: 5 mg Oxycodone HCl (Roxycodone Tab*) 5 mg PO Q4H PRN PRN Reason: PAIN Last Admin: 05/22/18 22:55 Dose: 5 mg Pantoprazole Sodium (Protonix Tab (Nf)) 40 mg PO DAILY [facility]; Protocol Last Admin: 05/23/18 09:15 Dose: 40 mg Polyethylene Glycol/Electrolytes (Miralax*) 17 gm PO DAILY [facility] Last Admin: 05/23/18 09:17 Dose: Not Given Prednisone (Deltasone Tab*) 40 mg PO DAILY [facility] Last Admin: 05/23/18 09:15 Dose: 40 mg Umeclidinium [place] (Incruse Ellipta Mdi (Nf)) 1 inh INH DAILY [facility] Last Admin: 05/23/18 08:16 Dose: Not Given Objective: [] Vital Signs Temp Pulse Resp BP Pulse Ox 98.3 F 65 20 150/45 94 05/23/18 07:15 05/23/18 08:14 05/23/18 09:37 05/23/18 07:15 05/23/18 09:37 HEENT - cushioned, no thrush No wheezing today, decreased BS Obese, NT ND Ext tr edema skin no lesions AAOx3 Trop 0.10 hgb 10.3 plts 402 Cr 0.89 K 4.1 Mg 2.2 Assessment: []78 year old with lung cancer on chemotherapy with gemcitabine. Has been responding but with progressive SOB. 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 Family meeting this am with patient, son and daughter in law. We discussed acute CAD and heart failure as well as cancer. Given multiple medical conditions and decreasing tolerance of chemotherapy, I think it will be very difficulty to continue to treat his cancer and we discussed hospice. Prognosis of cancer without treatment 6-9 months. However, he is acutely symptomatic from heart disease addressing his cardiac disease is relevant for his QOL. He may need additional intervention. Plan: []1. SOB. Gemcitabine vs COPD - Will continue steriods and doing well on Prednisone 40 mg po dialy - Discontinue gemcitabine - continue nebs and will need inhalers on discharge: Spiriva, Advair 2. Cardiac. Likely acute cardiac event. Case discussed with Dr. Carroll and will plan intervention as needed understanding termination clerk prognosis is guarded. - Continue lasix 20 mg po daily, Losartan and Metoprolol - NTG, Lovenox, Plavix, and will place on ASA 325 mg daily. - Dr. Carroll to consult today - check BNP and Troponin with AM labs 3. Lung cancer. Discussed with family and no additional therapy planned, hospice or survivance. time with patient and chart 45 min
[2018-05-23] MEDS ORDERED: diPHENhydraMINE PO* 25 MG PO PRN (14:57)
[2018-05-23] MEDS ORDERED: Nitro Patch/OINT Remove TOPICAL SCH (15:00)
[2018-05-23] MEDS: Nitroglycerin 0.6 MG/HR PATCH* (15 MG) TRANSDERM SCH (16:29)
[2018-05-23] MEDS: Enoxaparin(*) 40 MG/0.4 ML SYR SUBCUT SCH (16:31)
[2018-05-23] MEDS: Metoprolol Tartrate TAB* 50 mg PO SCH (20:46)
[2018-05-23] MEDS: Nitro Patch/OINT Remove PATCH OFF SCH (20:54)
[2018-05-23] MEDS: Diazepam TAB(*) 5 MG PO PRN (21:56)
[2018-05-23] MEDS: oxyCODONE TAB* 5 MG TAB PO PRN (22:01)
[2018-05-24] MEDS ORDERED: NS 0.9% 1000 ML* 1,000 ML IV SCH (03:00)
[2018-05-24] MEDS: UMECLIDIN MDI INH SCH (07:35)
[2018-05-24] MEDS: Mometasone/Formoter 200/5 MDI INH SCH ×2 (07:55→20:27)
[2018-05-24] MEDS ORDERED: Heparin 2 UNITS/ML IVPREMIX* 2,000 ML IV ONE (10:09)
[2018-05-24] MEDS ORDERED: Lidocaine 1% INJ* 10 MG/ML 30 ML SDV ONE ×2 (10:09→10:16)
[2018-05-24] MEDS: Diazepam TAB(*) 5 MG PO PRN (10:15)
[2018-05-24] MEDS ORDERED: fentaNYL* 50 MCG/ML 2 ML VIAL (100 MCG VIAL) ONE (10:16)
[2018-05-24] MEDS ORDERED: Midazolam* 1 MG/ML 10 ML VIAL (10 MG) ONE (10:16)
[2018-05-24] MEDS ORDERED: VERAPAMIL 2.5 MG/ML 2 ML VIAL ** 5 mg/2 ml ONE (10:16)
[2018-05-24] MEDS ORDERED: Heparin(*) 1000 UNIT/ML 10 ML VIAL CATH LAB IV ONE (10:16)
[2018-05-24] MEDS ORDERED: nitroGLYCERIN DRIP* 25,000 MCG/250 ML BTL ONE (10:16)
[2018-05-24] MEDS ORDERED: Iohexol 350 (CONTRAST) 200 ML MDV IV ONE ×2 (10:17→10:30)
[2018-05-24] MEDS: guaiFENesin LIQ* 100 MG/5 ML UDC PO SCH ×4 (10:45→20:59)
[2018-05-24] MEDS: Polyethylene Glycol 3350* 17 GM PACKET PO SCH (10:45)
[2018-05-24] MEDS: Losartan TAB* 25 MG PO SCH (12:49)
[2018-05-24] MEDS: Metoprolol Tartrate TAB* 50 mg PO SCH ×2 (12:50→20:59)
[2018-05-24] MEDS: Nitroglycerin 0.6 MG/HR PATCH* (15 MG) TRANSDERM SCH (12:51)
[2018-05-24] MEDS: Dicyclomine CAP* 10 MG PO SCH ×2 (13:57→20:59)
[2018-05-24] MEDS: predniSONE TAB* 20 MG PO SCH (13:58)
[2018-05-24] MEDS: CMC: Pantoprazole TAB (NF) 40 MG TAB PO SCH (13:58)
[2018-05-24] MEDS: Cetirizine* 10 MG TAB PO SCH (13:58)
[2018-05-24] MEDS: Oxybutynin TAB* 5 MG PO SCH (13:58)
[2018-05-24] MEDS: Furosemide TAB* 20 MG PO SCH (13:58)
[2018-05-24] MEDS: Clopidogrel TAB* 75 MG PO SCH (13:58)
[2018-05-24] MEDS: Enoxaparin(*) 40 MG/0.4 ML SYR SUBCUT SCH (16:58)
[2018-05-24] MEDS: oxyCODONE TAB* 5 MG TAB PO PRN (20:59)
[2018-05-24] MEDS: Nitro Patch/OINT Remove PATCH OFF SCH (21:02)
[2018-05-25] MEDS: UMECLIDIN MDI INH SCH (07:53)
[2018-05-25] MEDS: Mometasone/Formoter 200/5 MDI INH SCH ×2 (07:55→20:22)
--- NOTE | 2018-05-25 09:41 | CATH ---
CC: Dr. Zeyad Jin * CARDIAC CATHETERIZATION NOTE: DATE OF PROCEDURE: 05/24/18 PROCEDURE: Cardiac catheterization with coronary angiography. INDICATION: Coronary artery disease, angina, abnormal troponin level. The patient is a 78-year-old gentleman with a history of coronary artery disease , history of stenting to his left anterior descending artery back in December of 2017. Subsequent to that, the patient was diagnosed with lung cancer and had been undergoing chemotherapy treatment. The patient was admitted to the hospital with increased cough and anginal type chest pain. The patient had an elevated troponin level at 0.12. The patient continues to have chest pain despite maximization of medical therapy. Cardiac catheterization was recommended. PROCEDURE IN DETAIL: The patient was brought to the cardiac catheterization lab in a fasting state. Informed consent had been obtained prior to the procedure. All labs were reviewed. The patient was placed supine on the procedure table. His right radial area was prepped and draped in the usual fashion. 1% lidocaine was used for local anesthesia. The right radial artery was entered by Seldinger technique and a guidewire was placed. Over the guidewire, a 6-Thai hydrophilic sheath was placed. The patient underwent coronary angiography using a 6-Thai TIG catheter and a 6-Thai JL4 catheter. At the end of procedure, all sheaths and catheters were removed. The patient tolerated the procedure well with no complications. A total of 4.9 minutes of fluoro time was used. A total of 55 cc of Omnipaque dye was used. FINDINGS: 1. Left main artery. The left main was normal in size. It bifurcated into the LAD and circumflex. There was no evidence of stenosis. 2. Left anterior descending artery. The LAD was normal in size. It gave off two small diagonal branches. The LAD itself was without significant disease. The stent to the proximal portion of the LAD was open and patent. There was a 50% stenosis just distal to the stent. The remainder of the vessel was without disease. 3. Left circumflex artery. The circumflex artery was normal in size. It was a dominant vessel gave off the PDA. It gave off three obtuse marginal branches. The circumflex itself was without disease. The OM2 branch had an eccentric 50% stenosis. 4. Right coronary artery. The RCA was a small, nondominant vessel. IMPRESSION: 1. Stent to proximal LAD is open and patent. No evidence of restenosis. 2. Mild coronary artery disease in the mid left anterior descending artery and OM2 vessel. 3. Successful right radial artery catheterization. RECOMMENDATION: The patient will continue on maximum medical therapy. [id number]/[facility] #: [id number] [facility]ITALCelina
[2018-05-25] MEDS: Clopidogrel TAB* 75 MG PO SCH (10:58)
[2018-05-25] MEDS: Metoprolol Tartrate TAB* 50 mg PO SCH ×2 (10:58→19:48)
[2018-05-25] MEDS: Losartan TAB* 25 MG PO SCH (10:58)
[2018-05-25] MEDS: predniSONE TAB* 20 MG PO SCH (10:59)
[2018-05-25] MEDS: CMC: Pantoprazole TAB (NF) 40 MG TAB PO SCH (10:59)
[2018-05-25] MEDS: Oxybutynin TAB* 5 MG PO SCH (10:59)
[2018-05-25] MEDS: Dicyclomine CAP* 10 MG PO SCH ×2 (10:59→19:48)
[2018-05-25] MEDS: Cetirizine* 10 MG TAB PO SCH (10:59)
[2018-05-25] MEDS: Nitroglycerin 0.6 MG/HR PATCH* (15 MG) TRANSDERM SCH (11:02)
[2018-05-25] MEDS: guaiFENesin LIQ* 100 MG/5 ML UDC PO SCH ×4 (11:02→19:48)
[2018-05-25] MEDS: Polyethylene Glycol 3350* 17 GM PACKET PO SCH (11:03)
[2018-05-25] MEDS: Furosemide IV* 10 MG/ML VIAL (40 MG) IV SLOW PU SCH (11:03)
[2018-05-25] MEDS: Furosemide TAB* 20 MG PO SCH (11:10)
[2018-05-25] MEDS: Enoxaparin(*) 40 MG/0.4 ML SYR SUBCUT SCH (16:12)
--- NOTE | 2018-05-25 17:49 | PN ---
Progress Note - Progress Note Date of Service: 05/25/18 SOAP: Subjective: [Ed reports that he is doing well and is anxious to get home. Denies dyspnea at rest or with minimal activity. No CP or cough. He is very much convinced that he will recover from this and would like to get back to working and would eventually like to resume treatment.] Objective: [ Laboratory Results - last 24 hr 05/24/18 05/24/18 17:06 17:06 B-Natriuretic Peptide 1619 H Prealbumin 21 Acetaminophen (Tylenol Tab*) 650 mg PO Q4H PRN PRN Reason: HEADACHE Last Admin: 05/20/18 09:14 Dose: 650 mg Albuterol/Ipratropium (Duoneb (Albuterol 2.5 Mg/Ipratropium 0.5 Mg)) 1 neb INH Q4H PRN PRN Reason: SOB/WHEEZING Last Admin: 05/20/18 07:32 Dose: 1 neb Cetirizine HCl (Zyrtec*) 10 mg PO DAILY [facility] Last Admin: 05/25/18 10:59 Dose: 10 mg Clopidogrel Bisulfate (Plavix Tab*) 75 mg PO DAILY [facility] Last Admin: 05/25/18 10:58 Dose: 75 mg Dicyclomine HCl (Bentyl Cap*) 20 mg PO BID [facility] Last Admin: 05/25/18 10:59 Dose: 20 mg Enoxaparin Sodium (Lovenox(*)) 40 mg SUBCUT Q24H [facility] Last Admin: 05/25/18 16:12 Dose: 40 mg Furosemide (Lasix Iv*) 40 mg IV SLOW PU DAILY [facility] Last Admin: 05/25/18 11:03 Dose: 40 mg Guaifenesin (Robitussin*) 10 ml PO QID [facility] Last Admin: 05/25/18 14:17 Dose: 10 ml Heparin Sodium (Porcine) (Heparin Flush Port (Ivad)) 5 ml FLUSH DAILY [facility]; Protocol Last Admin: 05/25/18 11:35 Dose: 5 ml Losartan Potassium (Cozaar Tab*) 25 mg PO DAILY [facility] Last Admin: 05/25/18 10:58 Dose: 25 mg Metoprolol Tartrate (Lopressor Tab*) 50 mg PO BID [facility] Last Admin: 05/25/18 10:58 Dose: 50 mg Mometasone Furoate/Formoterol Fumar (Dulera 200/5 Mdi*) 2 puff INH BID [facility] Last Admin: 05/25/18 07:55 Dose: 2 puff Nitroglycerin (Nitroglycerin Tab 0.4 Mg*) 0.4 mg SL Q5M PRN PRN Reason: ANGINA Last Admin: 05/22/18 09:32 Dose: 0.4 mg Nitroglycerin (Nitroglycerin 15 Mg Patch*) 1 patch TRANSDERM DAILY [facility] Last Admin: 05/25/18 11:02 Dose: 1 patch Oxybutynin Chloride (Ditropan Tab*) 5 mg PO QAM [facility] Last Admin: 05/25/18 10:59 Dose: 5 mg Oxycodone HCl (Roxycodone Tab*) 5 mg PO Q4H PRN PRN Reason: PAIN Last Admin: 05/24/18 20:59 Dose: 5 mg Pantoprazole Sodium (Protonix Tab (Nf)) 40 mg PO DAILY [facility]; Protocol Last Admin: 05/25/18 10:59 Dose: 40 mg Pharmacy Profile Note (Nitro Patch/Oint Remove*) 1 note PATCH OFF 2[address] [facility] Last Admin: 05/24/18 21:02 Dose: 1 note Polyethylene Glycol/Electrolytes (Miralax*) 17 gm PO DAILY [facility] Last Admin: 05/25/18 11:03 Dose: Not Given Prednisone (Deltasone Tab*) 40 mg PO DAILY [facility] Last Admin: 05/25/18 10:59 Dose: 40 mg Umeclidinium [place] (Incruse Ellipta Mdi (Nf)) 1 inh INH DAILY [facility] Last Admin: 05/25/18 07:53 Dose: Not Given Vital Signs: Temp Pulse Resp BP Pulse Ox 97.1 F 63 16 143/57 97 05/25/18 15:23 05/25/18 15:23 05/25/18 15:23 05/25/18 15:23 05/25/18 15:23 HEENT - MMM, no thrush Resp - diffuse rhonchi and occasional wheeze CV - RRR, no m/r/g Abd - Obese, NT ND Ext - tr edema skin - no lesions AAOx3 Assessment: []78 year old with lung cancer on chemotherapy with gemcitabine. Hospitalized with progressive SOB found to have elevated troponin and EKG changes. Cardiac cath completed yesterday shows no significant stenosis. No WMAs on echocardiogram. Suspect SOB related to diastolic heart failure exacerbation related to gemcitabine toxicity and a COPD exacerbation. Plan: []1. NSTEMI - no significant stenosis on cardiac catheterization - likely stress induced ischemia - cont ASA/Plavix (last stent Dec 2017) - cont to manage BP with metoprolol, nitroglycerine patch and losartan - diuress additionally with IV Lasix 40 mg 2. COPD exacerbation - cont prednisone 40 mg daily - cont Advair/Spiriva 3. Lung cancer. - recommendation from Dr Hale is to discontinue therapy and pursue Hospice - patient is in denial about his prognosis, reinforced today with son and daughter in law present - referral has been to Hospice, but unlikely to sign on Dispo: anticipate dc home tomorrow with or without Hospice support. If he does not sign on to Hospice, will see in oncology clinic within 1 week of discharge. Will require supp O2 at home
[2018-05-25] MEDS: Nitro Patch/OINT Remove PATCH OFF SCH (21:49)
[2018-05-25] MEDS: oxyCODONE TAB* 5 MG TAB PO PRN (21:49)
[2018-05-26] MEDS ORDERED: Zolpidem TAB* 5 MG PO ONE (01:05)
[2018-05-26] MEDS ORDERED: Zolpidem TAB* 5 MG ONE (01:16)
[2018-05-26 04:42] VITALS: BP 144/43
[2018-05-26 05:37] LABS: ABS Basophils 0 10^3/ul (0-0.2); ABS Eosinophils 0 10^3/ul (0-0.6); ABS Lymphocytes 0.4 10^3/ul (1.0-4.8); ABS Monocytes 1.1 10^3/ul (0-0.8); ABS Nucleated RBC 0 10^3/ul; Eosinophil % 0.1 % (0-6); Hematocrit 30 % (42-52); Hemoglobin 9.6 g/dl (14.0-18.0); Mean Corpuscular HGB Conc 33 g/dl (31-36); Mean Corpuscular Hemoglobin 30 pg (27-31); Mean Corpuscular Volume 92 fL (80-94); Mean Platelet Volume 7.5 um3 (7.4-10.4); Nucleated Red Blood Cells % 0.1; Platelet Count 222 10^3/ul (150-450); Red Blood Count 3.22 10^6/ul (4.00-5.40); Red Cell Distribution Width 21 % (10.5-15); White Blood Count 6.5 10^3/ul (3.5-10.8)
[2018-05-26 05:53] LABS: EGFR Non-African American 69.1 (>60)
[2018-05-26] MEDS: Mometasone/Formoter 200/5 MDI INH SCH (08:14)
[2018-05-26] MEDS: UMECLIDIN MDI INH SCH (08:14)
[2018-05-26] MEDS: Clopidogrel TAB* 75 MG PO SCH (08:24)
[2018-05-26] MEDS: Dicyclomine CAP* 10 MG PO SCH (08:24)
[2018-05-26] MEDS: Metoprolol Tartrate TAB* 50 mg PO SCH (08:27)
[2018-05-26] MEDS: Losartan TAB* 25 MG PO SCH (08:27)
[2018-05-26] MEDS: Cetirizine* 10 MG TAB PO SCH (08:29)
[2018-05-26] MEDS: Oxybutynin TAB* 5 MG PO SCH (08:29)
[2018-05-26] MEDS: CMC: Pantoprazole TAB (NF) 40 MG TAB PO SCH (08:29)
[2018-05-26] MEDS: guaiFENesin LIQ* 100 MG/5 ML UDC PO SCH ×2 (08:30→12:15)
[2018-05-26] MEDS: Furosemide IV* 10 MG/ML VIAL (40 MG) IV SLOW PU SCH (08:30)
[2018-05-26] MEDS: Nitroglycerin 0.6 MG/HR PATCH* (15 MG) TRANSDERM SCH (08:30)
[2018-05-26] MEDS: Polyethylene Glycol 3350* 17 GM PACKET PO SCH (08:32)
[2018-05-26] MEDS: predniSONE TAB* 20 MG PO SCH (08:40)
--- NOTE | 2018-05-26 09:33 | DS ---
- Discharge Summary Admission Date: 05/16/2018 Discharge Date: 05/26/2018 Discharge Diagnosis: 1. COPD exacerbation: home with O2, f/u with pulm as outpatient 2. Non-ischemic chest pain: cath. negative, f/u with primary cardiology team as outpatient 3. Lung Cancer: no plans for further therapy, however pt. is not ready for hospice - plan palliative care consult as outpatient - f/u Dr. Hale in clinic Discharge Medications: Medication Instructions Recorded Confirmed Type Oxybutynin TAB* [Ditropan TAB*] 5 mg PO QAM 11/28/12 05/16/18 History Clopidogrel TAB* [Plavix TAB*] 75 mg PO DAILY 05/16/18 05/16/18 History Dicyclomine CAP* [Bentyl CAP*] 20 mg PO BID 05/16/18 05/16/18 History Esomeprazole(NF) [Nexium(NF)] 40 mg PO DAILY 05/16/18 05/16/18 History Fluticasone-Salmeterol 250-50* 1 puff INH BID 05/16/18 05/16/18 History [Advair Diskus 250-50*] Hydrochlorothiazide TAB* 25 mg PO DAILY 05/16/18 05/16/18 History [Hydrodiuril TAB*] LoraTADine TAB(NF) [Claritin 10 MG 10 mg PO DAILY 05/16/18 05/16/18 History TAB(NF)] Losartan TAB* [Cozaar TAB*] 25 mg PO DAILY 05/16/18 05/16/18 History Simvastatin (NF) [Zocor (NF)] 40 mg PO DAILY 05/16/18 05/16/18 History Umeclidin 62.5 MDI(NF) [Incruse 1 puff INH DAILY 05/16/18 05/16/18 History ELLIPTA MDI (NF)] guaiFENesin/CODIEN 100MG-10MG* 10 ml PO Q6HR PRN 05/16/18 05/16/18 History [Robitussin AC 100Mg-10Mg*] Acetaminophen TAB* [Tylenol TAB*] 650 mg PO Q4H PRN tab 05/26/18 Rx Albuterol/Ipratropium NEB.NANNETTE* 1 neb INH Q4H PRN #60 neb.soln 05/26/18 Rx [Duoneb (Albuterol 2.5 MG/Ipratropium 0.5 MG)] Metoprolol Tartrate TAB* 50 mg PO BID #60 tab 05/26/18 Rx [Lopressor TAB*] Nitroglycerin TAB 0.4 MG* 0.4 mg SL Q5M PRN #10 tab 05/26/18 Rx predniSONE TAB* [Deltasone 20 MG 20 mg PO DAILY #8 tab 05/26/18 Rx TAB*] Hospital Course: Please see admission note for full H&P, however briefly, Mr. Alvares is well known to our service due to his unfortunate diagnosis of recurrent lung cancer most recently treated with Gemcitabine. He presented to the ER on 05/16 with increased SOB and was admitted for COPD exacerbation and work-up for CHF. His echo and BNP on admission were both negative without evidence for cardiomyopathy. Over the next several days he cont.'d to have SOB though no clear source and medications were adjusted. On 05/20 he developed recurrent chest pain; repeat troponin and BNP were both elevated. He was treated with nitro and lasix. He had a cardiology consult and ultimately a cath on 05/25 that was negative. He had a long discussion with Dr. Hale during admission that he likely will not benefit from further therapy due to his co-morbidities, however he does not feel ready for hospice. He has agreed to an outpatient palliative consult for management of symptoms. He feels very motivated to go home and will be discharged with optimal medical management. 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 Hale in approximately 1 week. Plan of care reviewed at length with all questions answered. >40 min spent with >50% face to face counseling
== END 2018-05-26 14:05 | disposition home health service (06) | DRG 190 ==
LOC: ED 11:19 → MED 16:28
PROVIDERS: ADMIT Internal Medicine Hematology & Oncology; ATTEND Internal Medicine Hematology & Oncology
PROC: 30233N1 Transfusion of Nonautologous Red Blood Cells into Peripheral Vein, Percutaneous Approach (ICD-10-PCS; 2018-05-16)
PROC: B2111ZZ Fluoroscopy of Multiple Coronary Arteries using Low Osmolar Contrast (ICD-10-PCS; principal; 2018-05-24 10:00)
DX: J43.9 Emphysema, unspecified (principal); J96.01 Acute respiratory failure with hypoxia; C34.90 Malignant neoplasm of unspecified part of unspecified bronchus or lung; J90 Pleural effusion, not elsewhere classified; I50.32 Chronic diastolic (congestive) heart failure; C79.9 Secondary malignant neoplasm of unspecified site; M19.90 Unspecified osteoarthritis, unspecified site; G47.30 Sleep apnea, unspecified; I25.10 Atherosclerotic heart disease of native coronary artery without angina pectoris; I11.0 Hypertensive heart disease with heart failure; K21.9 Gastro-esophageal reflux disease without esophagitis; K58.9 Irritable bowel syndrome, unspecified; D64.9 Anemia, unspecified; I08.3 Combined rheumatic disorders of mitral, aortic and tricuspid valves; E78.5 Hyperlipidemia, unspecified; K59.00 Constipation, unspecified; I08.2 Rheumatic disorders of both aortic and tricuspid valves; R07.89 Other chest pain; E86.0 Dehydration; E66.9 Obesity, unspecified; I73.9 Peripheral vascular disease, unspecified; Z88.1 Allergy status to other antibiotic agents; Z88.8 Allergy status to other drugs, medicaments and biological substances; Z87.01 Personal history of pneumonia (recurrent); Z86.19 Personal history of other infectious and parasitic diseases; Z92.3 Personal history of irradiation; Z87.891 Personal history of nicotine dependence; Z90.49 Acquired absence of other specified parts of digestive tract; I25.2 Old myocardial infarction; Z85.46 Personal history of malignant neoplasm of prostate; Z80.42 Family history of malignant neoplasm of prostate; Z90.79 Acquired absence of other genital organ(s); Z82.49 Family history of ischemic heart disease and other diseases of the circulatory system; Z95.5 Presence of coronary angioplasty implant and graft; Z98.42 Cataract extraction status, left eye; Z98.41 Cataract extraction status, right eye; Z83.3 Family history of diabetes mellitus; Z68.26 Body mass index [BMI] 26.0-26.9, adult; Z79.52 Long term (current) use of systemic steroids
CPT/HCPCS: 36415; 71045; 71048; 71275; 78582; 80053; 81003; 81015; 83605; 83735; 83880; 84134; 84484; 85025; 85027; 85610; 85730; 86850; 86900; 86901; 86922; 87040; 87070; 87086; 87205; 93005; 93306; 93454; 94640; 99223; 99232; 99233; 99239; 99284; A9270-GY; A9540; A9558; C1887; G8978-GP-CH; G8978-GP-CI; G8979-GP-CH; G8979-GP-CI; G8980-GP-CH; G8980-GP-CI; G8987-GO-CI; G8988-GO-CI; J0692; J1642; J1644; J1650; J1940; J2250; J2920; J2930; J3010; J7512; P9040; Q9967